=== PATIENT | male | born 1930 | race Caucasian/White ===

== ENCOUNTER 2016-09-03 14:34 | Inpatient (IN) | payer OTHER, MEDICARE ==
[~2016-09-03] VITALS: Ht 167.6 cm; Wt 69.5 kg
[2016-09-03] VITALS (8 sets, daily range): BP systolic 103–161; BP diastolic 51–87; PULSE 72–99; RESP 18–22; TEMP 100.9–102.4; O2SAT 96–99
[2016-09-03] MEDS ORDERED: SODIUM CHLOR 0.9% 1000 ML INJ 400 ML IV ONE (14:58)
[2016-09-03] MEDS ORDERED: SODIUM CHLOR 0.9% 1000 ML INJ 1,000 ML IV ONE ×3 (14:58)
[2016-09-03] MEDS ORDERED: VANCOMYCIN INJ 1,000 MG in SODIUM CHLOR 0.9% 250 ML INJ 250 ML IV ONE (15:00)
[2016-09-03] MEDS ORDERED: CEFEPIME INJ 2,000 MG in SODIUM CHLORIDE 0.9% INJ 100 ML IV ONE (15:00)
[2016-09-03 15:10] LABS: AUTOMATED NEUTROPHIL # 4.2 TH/MM3 (1.8-7.7); BASOPHIL # 0.1 TH/MM3 (0-0.2); BASOPHIL % 1.1 % (0.0-2.0); EOSINOPHIL % 0.8 % (0.0-4.0); HEMATOCRIT 42.3 % (39.0-51.0); HEMO FLAGS DIFF FINAL; LYMPH % 12.9 % (9.0-44.0); LYMPHOCYTE # 0.8 TH/MM3 (1.0-4.8); MEAN CELL VOLUME 89.5 FL (80.0-100.0); MEAN CORPUSCULAR HEMOGLOBIN 29.4 PG (27.0-34.0); MEAN CORPUSCULAR HGB CONC 32.8 % (32.0-36.0); NEUT % 73.2 % (16.0-70.0); PLATELET COUNT 130 TH/MM3 (150-450); RED BLOOD COUNT 4.72 MIL/MM3 (4.50-5.90); RED CELL DISTRIBUTION WIDTH 12.6 % (11.6-17.2); WHITE BLOOD COUNT 5.8 TH/MM3 (4.0-11.0)
[2016-09-03 15:14] LABS: CHLORIDE 103 MEQ/L (98-107); POTASSIUM 4.1 MEQ/L (3.5-5.1); SODIUM (NA) 136 MEQ/L (136-145)
--- NOTE | 2016-09-03 15:15 | RADHPO ---
EXAM DATE/TIME: 09/03/2016 14:55 [facility] COMPARISON: No previous studies available for comparison. INDICATIONS : Stroke alert. Unable to follow commands. Dysarthric. RADIATION DOSE: 47.37 CTDIvol (mGy) This report was called by Dr. Stewart to Dr. Guo at 1513 hr. MEDICAL HISTORY : Non-responsive. SURGICAL HISTORY : Non-responsive. ENCOUNTER: Initial ACUITY: 1 day PAIN SCALE: 0/10 LOCATION: cranial TECHNIQUE: Multiple contiguous axial images were obtained of the head. Using automated exposure control and adj ustment of the mA and/or kV according to patient size, radiation dose was kept as low as reasonably a chievable to obtain optimal diagnostic quality images. FINDINGS: CEREBRUM: The ventricles are normal for age. No evidence of midline shift, mass lesion, hemorrhage or acute in farction. No extra-axial fluid collections are seen. POSTERIOR FOSSA: The cerebellum and brainstem are intact. The 4th ventricle is midline. The cerebellopontine angle i s unremarkable. EXTRACRANIAL: The visualized portion of the orbits is intact. SKULL: The calvaria is intact. No evidence of skull fracture. CONCLUSION: No acute abnormality. Abel Stewart MD on September 03, 2016 at 15:10 Board Certified Radiologist. This report was verified electronically.
[2016-09-03 15:20] LABS: ANION GAP 8 MEQ/L (5-15); APTT (PATIENT) 29.7 SEC (24.3-30.1); BICARBONATE 24.9 MEQ/L (21.0-32.0); BLOOD UREA NITROGEN 24 MG/DL (7-18); PROTHROMBIN TIME - PATIENT 10.8 SEC (9.8-11.6)
[2016-09-03 15:23] LABS: ALT (GPT) 209 U/L (12-78); AST (GOT) 106 U/L (15-37); GLOMERULAR FILTRATION RATE 32 ML/MIN (>89)
[2016-09-03 15:25] LABS: TOTAL BILIRUBIN ADULT 0.5 MG/DL (0.2-1.0)
[2016-09-03 15:26] LABS: ALKALINE PHOSPHATASE 196 U/L (45-117); CREATINE KINASE 192 U/L (39-308)
--- NOTE | 2016-09-03 15:57 | RADHPO ---
EXAM DATE/TIME: 09/03/2016 15:19 [facility] COMPARISON: No previous studies available for comparison. INDICATIONS : Stroke MEDICAL HISTORY : None. SURGICAL HISTORY : None. ENCOUNTER: Initial ACUITY: 1 day PAIN SCORE: Non-responsive. LOCATION: Bilateral chest FINDINGS: Underinflated AP view of the chest demonstrates a normal-sized cardiac silhouette. Lungs are underinf lated. No effusion, consolidation, or pneumothorax is appreciated. Bones and soft tissues demonstrate no acute finding. There is mild atelectasis at the lung bases. There is motion artifact. CONCLUSION: Examination is degraded by mild motion artifact. Lungs are underinflated and there is atelectasis at the lung bases. Deejay Nathan MD on September 03, 2016 at 15:54 Board Certified Radiologist. This report was verified electronically.
[2016-09-03 16:02] LABS: BLOOD, URINE SMALL (NEG); GLUCOSE,URINE NEG (NEG); KETONE, URINE NEG (NEG); NITRITE,URINE NEG (NEG)
[2016-09-03 16:14] LABS: COMMENT (UR) CULT NOT INDICATED; CULTURE IF INDICATED CULT NOT INDICATED; METHOD OF COLLECTION CATH; RBC, URINE 0-3 /hpf (0-3); SQUAMOUS EPITHELIAL CELL URINE 0-5 /hpf (0-5); URINE COLOR YELLOW (YELLW/STRAW); WBC, URINE 0-2 /hpf (0-5)
--- NOTE | 2016-09-03 16:17 | PD ---
HPI Chief Complaint: Stroke Alert Time Seen by Provider: 14:48 Travel History International Travel<30 days: No Contact w/Intl Traveler<30days: No Traveled to known affect area: No History of Present Illness HPI This is an 86-year-old male who presents to the emergency department with fevers , cough, congestion as well as altered mental status. History is very limited as patient and his speak Bulgarian. 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 From what I can understand from the patient's he has had a cough and fevers for 2 days. She was given a bring him to the doctor today and at 1:30 he was normal, in the kitchen, gathering his things, and then an hour later at 2 :30 she found him in the garage acting bizarrely. She says she's appreciated some difficulty with his speech and he seems more confused than normal. Patient is unable to provide any history. PFSH Past Medical History Hx Anticoagulant Therapy: Yes (UNSURE) High Cholesterol: Yes Coronary Artery Disease: Yes Diminished Hearing: No Hypertension: Yes Immunizations Current: Yes Thyroid Disease: Yes Tetanus Vaccination: > 5 Years Influenza Vaccination: No Past Surgical History Coronary Artery Bypass Graft: Yes Social History Alcohol Use: No Tobacco Use: No Substance Use: No Allergies-Medications (Allergen,Severity, Reaction): Coded Allergies: UNOBTAINABLE (Unverified , 09/03/16) Review of Systems ROS Limitations: Poor Historian Physical Exam Narrative GENERAL: Frail elderly male in no acute distress SKIN: Dry HEAD: Atraumatic. Normocephalic. EYES: Pupils equal and round. No injection or drainage. ENT: Moist mucous membranes NECK: Trachea midline. No meningismus. CARDIOVASCULAR: Regular rate and rhythm. No murmur appreciated. RESPIRATORY: Clear to auscultation. Breath sounds equal bilaterally. GASTROINTESTINAL: Abdomen soft, non-tender, nondistended. MUSCULOSKELETAL: No obvious deformities. NEUROLOGICAL: 5 out of 5 strength in the bilateral upper and lower extremities with no obvious ataxia. No obvious cranial nerve deficit. Patient appears to have some dysarthria and expressive aphasia. Data Data Last Documented VS Vital Signs Date Time Temp Pulse Resp B/P Pulse Ox O2 Delivery O2 Flow Rate FiO2 09/03/16 15:51 99 20 152/81 96 Room Air 09/03/16 14:34 102.4 Orders Cath For Specimen (09/03/16 14:58) Neuro Checks Q2HX12,Q4H (09/03/16 14:58) Nursing Bedside Swallow Assess .ONCE (09/03/16 14:58) Activity Bed Rest (09/03/16 14:58) Diet Npo (09/03/16 Dinner) Prothrombin Time / Inr (Pt) (09/03/16 14:58) Act Partial Throm Time (Ptt) (09/03/16 14:58) Complete Blood Count With Diff (09/03/16 14:58) Basic Metabolic Panel (Bmp) (09/03/16 14:58) Fibrinogen (09/03/16 14:58) Creatine Kinase (Cpk) (09/03/16 14:58) Troponin I (09/03/16 14:58) Ua Includes Microscopic (09/03/16 14:58) Drug Screen, Random Urine (09/03/16 14:58) Type And Screen (09/03/16 14:58) Ct Brain W/O Iv Contrast(Rout) (09/03/16 ) Electrocardiogram (09/03/16 ) Consult Neurology (09/03/16 14:58) Sodium Chlor 0.9% 1000 Ml Inj (Ns 1000 M (09/03/16 14:58) Blood Glucose (09/03/16 14:58) Ecg Monitoring (09/03/16 14:58) Iv Access Insert/Monitor (09/03/16 14:58) NPO (09/03/16 14:58) Oximetry (09/03/16 14:58) Oxygen Administration (09/03/16 14:58) Resp Oxygen Víctor C Titrat 1-4 L (09/03/16 14:58) Comprehensive Metabolic Panel (09/03/16 14:58) Lactic Acid Sepsis Protocol (09/03/16 14:58) Urinalysis - C+S If Indicated (09/03/16 14:58) Blood Culture (09/03/16 14:58) Chest, Single Ap (09/03/16 14:58) Sodium Chlor 0.9% 1000 Ml Inj (Ns 1000 M (09/03/16 14:58) Sodium Chlor 0.9% 1000 Ml Inj (Ns 1000 M (09/03/16 14:58) Sodium Chlor 0.9% 1000 Ml Inj (Ns 1000 M (09/03/16 14:58) Vancomycin Inj (Vancomycin Inj) (09/03/16 15:00) Cefepime Inj (Maxipime Inj) (09/03/16 15:00) (Hub Use Only)Inp Phy Cons/Ref (09/03/16 ) Influenzae A/B Antigen (09/03/16 16:20) Us Abdomen Gallbladder (09/03/16 ) Labs Laboratory Tests Test 09/03/16 09/03/16 15:00 15:50 White Blood Count 5.8 TH/MM3 Red Blood Count 4.72 MIL/MM3 Hemoglobin 13.9 GM/DL Hematocrit 42.3 % Mean Corpuscular Volume 89.5 FL Mean Corpuscular Hemoglobin 29.4 PG Mean Corpuscular Hemoglobin 32.8 % Concent Red Cell Distribution Width 12.6 % Platelet Count 130 TH/MM3 Mean Platelet Volume 8.5 FL Neutrophils (%) (Auto) 73.2 % Lymphocytes (%) (Auto) 12.9 % Monocytes (%) (Auto) 12.0 % Eosinophils (%) (Auto) 0.8 % Basophils (%) (Auto) 1.1 % Neutrophils # (Auto) 4.2 TH/MM3 Lymphocytes # (Auto) 0.8 TH/MM3 Monocytes # (Auto) 0.7 TH/MM3 Eosinophils # (Auto) 0.0 TH/MM3 Basophils # (Auto) 0.1 TH/MM3 CBC Comment DIFF FINAL Differential Comment Prothrombin Time 10.8 SEC Prothromb Time International 1.0 RATIO Ratio Activated Partial 29.7 SEC Thromboplast Time Sodium Level 136 MEQ/L Potassium Level 4.1 MEQ/L Chloride Level 103 MEQ/L Carbon Dioxide Level 24.9 MEQ/L Anion Gap 8 MEQ/L Blood Urea Nitrogen 24 MG/DL Creatinine 2.00 MG/DL Estimat Glomerular Filtration 32 ML/MIN Rate Random Glucose 98 MG/DL Lactic Acid Level 2.4 mmol/L Calcium Level 8.6 MG/DL Total Bilirubin 0.5 MG/DL Aspartate Amino Transf 106 U/L (AST/SGOT) Alanine Aminotransferase 209 U/L (ALT/SGPT) Alkaline Phosphatase 196 U/L Total Creatine Kinase 192 U/L Troponin I LESS THAN 0.02 NG/ML Total Protein 7.9 GM/DL Albumin 3.8 GM/DL Urine Collection Type CATH Urine Color YELLOW Urine Turbidity CLEAR Urine pH 5.0 Urine Specific [place] 1.021 Urine Protein 30 mg/dL Urine Glucose (UA) NEG mg/dL Urine Ketones NEG mg/dL Urine Occult Blood SMALL Urine Nitrite NEG Urine Bilirubin NEG Urine Leukocyte Esterase NEG Urine RBC 0-3 /hpf Urine WBC 0-2 /hpf Urine Squamous Epithelial 0-5 /hpf Cells Urine Amorphous Sediment SMALL Microscopic Urinalysis Comment CULT NOT INDICATED Urine Amphetamines Screen NEG MDM Medical Decision Making Medical Screen Exam Complete: Yes Emergency Medical Condition: Yes Interpretation(s) Fever, hypertensive No leukocytosis Monocytic shift Renal insufficiency Lactic acid is 2.4 Transaminitis Troponin is normal Urinalysis is negative for infection CT of the head is negative for intracranial hemorrhage Chest x-ray is negative for infiltrate Differential Diagnosis Pneumonia, bronchitis, viral syndrome, urinary tract infection, cholecystitis, encephalitis, meningitis, ischemic stroke, hemorrhagic stroke Narrative Course This is an 86-year-old male who presents to the emergency department with altered mental status in the setting of a cough and fever at home. Patient was placed on a monitor and an IV was established. He was found to be febrile. History was very limited due to language barrier and hearing impairment. He did appear to be dysarthric and have some aphasia. It's unclear to me whether this is completely new and it's difficult to ascertain the patient's baseline as his is a poor historian as well. I did call a stroke alert because his appeared to appreciated discrete change in his mental status 2 hours prior to arrival. I don't appreciate any focal weakness or focal neurologic deficit on exam except from some possible speech difficulty. His reports he might be on a blood thinner but she's not sure which one. Given the patient's age, uncertain medications, uncertain history, and unclear neurologic deficit I spoke to Dr. Schwartz and we agreed that the risks of TPA outweigh the benefits in this patient. I discussed this with the patient's who express some understanding. Patient is febrile and I suspect he is delirious in the setting of sepsis. He has been reporting a cough so he may have a viral etiology of his symptoms. Chest x-ray was negative and urinalysis was negative. He has no meningismus and is awake and alert so I have a low suspicion for encephalitis or meningitis. Patient was given broad-spectrum antibiotics as well as IV hydration. Cultures were obtained. Patient will be admitted for further management. He did have a mild transaminitis so right upper quadrant ultrasound was obtained, although I doubt cholecystitis as he is not tender on exam. Critical Care Narrative Aggregate critical care time was 35 minutes. Time to perform other separately billable procedures was not included in the critical care time. My time did not include minutes spent treating any other patients simultaneously or on activities that did not directly contribute to the patient's treatment. The services I provided to this patient were to treat and/or prevent clinically significant deterioration that could result in: Disability, I provided critical care services requiring my management, as noted below: Chart data review, documentation time, medication orders and management, vital sign assessments/reviewing monitor data, ordering and reviewing lab tests, ordering and interpreting/reviewing x-rays and diagnostic studies, care of the patient and discussion of the patient with the admitting physicians. Physician Communication Physician Communication Discussed with Dr. Reddy Diagnosis Primary Impression: Sepsis Qualified Code: A41.9 - Sepsis, due to unspecified organism Additional Impression: Altered mental status Qualified Code: R41.0 - Delirium Admitting Information Admitting Physician Requests: Admit Leah Guo MD September 03, 2016 16:17
[2016-09-03 16:20] LABS: AMPHETAMINE, URINE NEG (NEG)
[2016-09-03 16:21] LABS: BARBITURATES, URINE NEG (NEG)
[2016-09-03] MEDS: SODIUM CHLOR 0.9% 1000 ML INJ 1,000 ML IV SCH ×2 (16:25→23:58)
[2016-09-03 16:26] LABS: COCAINE, URINE NEG (NEG)
[2016-09-03] MEDS ORDERED: SODIUM CHLORIDE 0.9% FLUSH 10 ML FLUSH IV FLUSH PRN (16:30)
[2016-09-03] MEDS ORDERED: ONDANSETRON HCL 4 MG/2 ML VIAL IVP PRN (16:30)
[2016-09-03] MEDS ORDERED: NALOXONE HCL 0.4 MG/ML AMP IV PRN (16:30)
[2016-09-03] MEDS ORDERED: METO100T PO (17:03)
[2016-09-03] MEDS ORDERED: AMLO5TAB2 PO (17:03)
[2016-09-03] MEDS ORDERED: LEVO150T7 PO (17:03)
[2016-09-03] MEDS ORDERED: ENAL20TA PO (17:03)
[2016-09-03 17:07] LABS: LACTIC ACID GHOST NOT REPORTABLE
--- NOTE | 2016-09-03 17:30 | RADHPO ---
EXAM DATE/TIME: 09/03/2016 17:02 [facility] COMPARISON: No previous studies available for comparison. INDICATIONS : Nausea/vomiting. MEDICAL HISTORY : Hypercholesterolemia. Hypertension. Thyroid disease. Coronary artery disease. SURGICAL HISTORY : CABG. ENCOUNTER: Initial ACUITY: 2 days PAIN SCORE: 0/10 LOCATION: Right upper quadrant MEASUREMENTS: LIVER: 14.6 cm length COMMON DUCT: 5 mm RIGHT KIDNEY: 9.3 x 5.3 x 4.6 cm FINDINGS: LIVER: Normal echotexture without focal lesion or ductal dilatation. There is a small amount of free fluid in the abdomen. COMMON DUCT: No intraluminal mass or stone visualized. GALLBLADDER: The gallbladder appears normal in size and wall thickness with no pericholecyst ic fluid. There are gallstones as well as apparent echogenic sludge. PANCREAS: The visualized portions are within normal limits. RIGHT KIDNEY: No evidence of hydronephrosis, stone, or mass. Echogenicity is equal to that of the liver. CONCLUSION: 1. Cholelithiasis and sludge. There is no definite wall thickening or pericholecystic fluid. 2. The echogenicity of the right kidney is equal to that of the liver which can be seen in medical re nal disease. There is a small amount of free fluid. 3. Small amount of free fluid. Abel Stewart MD on September 03, 2016 at 17:25 Board Certified Radiologist. This report was verified electronically.
[2016-09-03] MEDS ORDERED: Vancomycin Consult Pharmacy 1 EA OTHER SCH (18:00)
[2016-09-03] MEDS: LACTOBACILLUS ACIDOPHILUS TAB PO SCH (18:00)
[2016-09-03] MEDS: ACETAMINOPHEN 650 MG SUPP RECTAL PRN (18:57)
--- NOTE | 2016-09-03 19:04 | HHI.HP ---
[facility] Service [facility] Primary Care Physician Ernie Mas MD Admission Diagnosis sepsis, altered mental status Diagnoses: Travel History International Travel<30 Days: No Contact w/Intl Traveler <30 Da: No Traveled to Known Affected Are: No Sepsis Criteria SIRS Criteria (2 or more): Temp > 100.9 or < 96.8, Heart rate over 90, RR > 20 or PaCO2 < 32 Sepsis Criteria (SIRS+source): Infect source susp/known Severe Sepsis (+one): Lactate >2 Criteria Outcome: Meets severe sepsis criteria History of Present Illness Mr. Okeefe is an 86-year-old male. He is brought in by his family secondary to confusion. She's been sick for about 2 days with upper respiratory tract type symptoms. His son reports that she mowed the yard for 3 hours yesterday. Today he is coming in with fevers, acute kidney injury, lactic acidosis, decreased speech (resolved by the time I see him), elevated LFTs. She meets criteria for severe sepsis. Symptoms would correlate with a pneumonia but no pneumonia seen on imaging. She has been started on cefepime and vancomycin for broad coverage. Declined speech was suspicious for a TIA versus CVA. CT showed no evidence of this. MRI is pending. His current septic state could also give neurological findings as were seen. He still having symptoms of fever and chills when seen. No other complaints. Blood pressures have remained stable. No chest pain. Review of Systems Constitutional: COMPLAINS OF: Fever, Chills Endocrine: COMPLAINS OF: Heat/cold intolerance, DENIES: Polydipsia Eyes: DENIES: Blurred vision, Diplopia Ears, nose, mouth, throat: COMPLAINS OF: Running Nose, DENIES: Hearing loss, Vertigo Respiratory: COMPLAINS OF: Cough, Shortness of breath, DENIES: Wheezing Cardiovascular: COMPLAINS OF: Palpitations, DENIES: Chest pain Gastrointestinal: DENIES: Abdominal pain, Black stools, Bloody stools Musculoskeletal: DENIES: Joint pain, Muscle aches Integumentary: DENIES: Abnormal pigmentation Hematologic/lymphatic: DENIES: Bruising Immunologic/allergic: DENIES: Eczema Neurologic: DENIES: Abnormal gait Psychiatric: COMPLAINS OF: Confusion, DENIES: Anxiety Past Family Social History Past Medical History Coronary artery disease Past Surgical History CABG 3 Reported Medications Reported Meds & Active Scripts Active Reported Levothyroxine (Levothyroxine Sodium) 150 Mcg Tab 150 Mcg PO DAILY BUT MON Metoprolol Tartrate 100 Mg Tab 100 Mg PO BID Amlodipine (Amlodipine Besylate) 5 Mg Tab 5 Mg PO DAILY Enalapril (Enalapril Maleate) 20 Mg Tab 20 Mg PO BID Allergies: Coded Allergies: UNOBTAINABLE (Unverified , 09/03/16) Active Ordered Medications Administered Medications Medications (Trade) Dose Ordered Sig/Suman Route PRN Reason Start Time Stop Time Status Last Admin Dose Admin Sodium Chloride (NS 1000 ml Inj) 1,000 ml @ 100 mls/hr Q10H IV 09/03/16 16:25 09/03/16 16:25 Family History None Social History Patient is from [place] and speaks predominantly Pakistani no smoking but he has a past history of smoking Occasional alcohol No drug abuse Physical Exam Vital Signs Vital Signs Date Time Temp Pulse Resp B/P Pulse Ox O2 Delivery O2 Flow Rate FiO2 09/03/16 18:19 99 21 09/03/16 18:00 92 20 111/87 99 Room Air 09/03/16 16:59 101.4 94 22 137/59 97 Room Air 09/03/16 16:57 101.4 94 22 137/59 97 Room Air 09/03/16 15:51 99 20 152/81 96 Room Air 09/03/16 15:51 96 99 Room Air 09/03/16 14:45 99 Room Air 09/03/16 14:45 99 Room Air 09/03/16 14:34 102.4 72 20 161/76 99 Physical Exam GENERAL: NAD, A&Ox3, fine tremors globally SKIN: Warm and dry. HEAD: Normocephalic. EYES: No scleral icterus. No injection or drainage. NECK: Supple, trachea midline. No JVD or lymphadenopathy. CARDIOVASCULAR: Tachycardia. Regular rate and rhythm without murmurs, gallops, or rubs. RESPIRATORY: Breath sounds equal bilaterally. No accessory muscle use. GASTROINTESTINAL: Abdomen soft, non-tender, nondistended. MUSCULOSKELETAL: No cyanosis, or edema. Laboratory Laboratory Tests Test 09/03/16 09/03/16 09/03/16 15:00 15:50 17:46 White Blood Count 5.8 Red Blood Count 4.72 Hemoglobin 13.9 Hematocrit 42.3 Mean Corpuscular Volume 89.5 Mean Corpuscular Hemoglobin 29.4 Mean Corpuscular Hemoglobin 32.8 Concent Red Cell Distribution Width 12.6 Platelet Count 130 Mean Platelet Volume 8.5 Neutrophils (%) (Auto) 73.2 Lymphocytes (%) (Auto) 12.9 Monocytes (%) (Auto) 12.0 Eosinophils (%) (Auto) 0.8 Basophils (%) (Auto) 1.1 Neutrophils # (Auto) 4.2 Lymphocytes # (Auto) 0.8 Monocytes # (Auto) 0.7 Eosinophils # (Auto) 0.0 Basophils # (Auto) 0.1 CBC Comment DIFF FINAL Differential Comment Prothrombin Time 10.8 Prothromb Time International 1.0 Ratio Activated Partial 29.7 Thromboplast Time Fibrinogen 402 Sodium Level 136 Potassium Level 4.1 Chloride Level 103 Carbon Dioxide Level 24.9 Anion Gap 8 Blood Urea Nitrogen 24 Creatinine 2.00 Estimat Glomerular Filtration 32 Rate Random Glucose 98 Lactic Acid Level 2.4 2.1 Calcium Level 8.6 Total Bilirubin 0.5 Aspartate Amino Transf 106 (AST/SGOT) Alanine Aminotransferase 209 (ALT/SGPT) Alkaline Phosphatase 196 Total Creatine Kinase 192 Troponin I LESS THAN 0.02 Total Protein 7.9 Albumin 3.8 Blood Type O POSITIVE Antibody Screen NEGATIVE Urine Collection Type CATH Urine Color YELLOW Urine Turbidity CLEAR Urine pH 5.0 Urine Specific [place] 1.021 Urine Protein 30 Urine Glucose (UA) NEG Urine Ketones NEG Urine Occult Blood SMALL Urine Nitrite NEG Urine Bilirubin NEG Urine Leukocyte Esterase NEG Urine RBC 0-3 Urine WBC 0-2 Urine Squamous Epithelial 0-5 Cells Urine Amorphous Sediment SMALL Microscopic Urinalysis Comment CULT NOT INDICATED Urine Opiates Screen NEG Urine Barbiturates Screen NEG Urine Amphetamines Screen NEG Urine Benzodiazepines Screen NEG Urine Cocaine Screen NEG Urine Cannabinoids Screen NEG Date/Time Procedure Status Source Growth 09/03/16 16:40 Influenza Types A,B Antigen (JULIAN) - Final Complete Nasal Washing Positive For Flu B Antigen 09/03/16 14:50 Aerobic Blood Culture Received Blood Peripheral Pending 09/03/16 14:50 Anaerobic Blood Culture Received Blood Peripheral Pending Result Diagram: 09/03/16 1500 09/03/16 1500 Imaging Last Impressions Chest X-Ray 09/03/16 1458 Signed Impressions: Service Date/Time: Saturday, September 03, 2016 15:19 - CONCLUSION: Examination is degraded by mild motion artifact. Lungs are underinflated and there is atelectasis at the lung bases. Deejay Nathan MD Head CT 09/03/16 0000 Signed Impressions: Service Date/Time: Saturday, September 03, 2016 14:55 - CONCLUSION: No acute abnormality. Abel Stewart MD Gall Bladder Ultrasound 09/03/16 0000 Signed Impressions: Service Date/Time: Saturday, September 03, 2016 17:02 - CONCLUSION: 1. Cholelithiasis and sludge. There is no definite wall thickening or pericholecystic fluid. 2. The echogenicity of the right kidney is equal to that of the liver which can be seen in medical renal disease. There is a small amount of free fluid. 3. Small amount of free fluid. Abel Stewart MD Septic Shock Reassessment Heart: Regular rate and rhythm Lungs: Clear Skin: Warm Peripheral Pulses: Bounding Right Radial Bounding Left Radial Capillary Refill: Brisk Assessment and Plan Problem List: (1) Sepsis ICD Code: A41.9 Status: Acute (2) Altered mental status ICD Code: R41.82 Status: Acute (3) Lactic acidosis ICD Code: E87.2 Status: Acute (4) Severe sepsis ICD Code: A41.9 Status: Acute (5) JESSICA (acute kidney injury) ICD Code: N17.9 Status: Acute (6) LFT elevation ICD Code: R94.5 Status: Acute Assessment and Plan Assessment and plan 86-year-old male admitted with fever, acute kidney injury, elevated LFTs, lactic acidosis, severe sepsis Severe sepsis Lactic acidosis tachycardia Fever Aggressive IV hydration Cefepime Vancomycin Follow CBC Monitor lactic acid levels Follow vital signs closely Follow fevers next Acute kidney injury IV hydration Follow renal function Consider nephrology consult if renal function worsens Metabolic encephalopathy Possible CVA Dysarthria MRI of brain CT of brain is within normal limits If MRI of brain is normal etiology is likely secondary to infection If MRI brain shows CVA we'll consult neurology Daily aspirin Elevated LFTs Follow for now next DVT prophylaxis Given acute kidney injury will use SCDs for now Consider Lovenox if renal function improves Physician Certification 2 Midnight Certification Type: Admission for Inpatient Services Order for Inpatient Services The services are ordered in accordance with Medicare regulations or non- Medicare payer requirements, as applicable. In the case of services not specified as inpatient-only, they are appropriately provided as inpatient services in accordance with the 2-midnight benchmark. Estimated LOS (days): 2 days is the estimated time the patient will need to remain in the hospital, assuming treatment plan goals are met and no additional complications. Post-Hospital Plan: Home Problem Qualifiers (1) Sepsis: Qualified Code: A41.9 - Sepsis, due to unspecified organism (2) Altered mental status: Qualified Code: R41.0 - Delirium Devin Reddy MD September 03, 2016 7:04 pm
[2016-09-03] MEDS: SODIUM CHLORIDE 0.9% FLUSH 10 ML FLUSH IV FLUSH SCH (22:04)
--- NOTE | 2016-09-03 22:29 | RADHPO ---
EXAM DATE/TIME: 09/03/2016 21:31 [facility] COMPARISON: No previous studies available for comparison. INDICATIONS : CVA. MEDICAL HISTORY : Hypertension. Cardiovascular disease SURGICAL HISTORY : CABG ENCOUNTER: Initial ACUITY: 1 day PAIN SCORE: Nonresponsive. LOCATION: Bilateral cranial TECHNIQUE: Multiplanar, multisequence MRI of the brain was performed without contrast. FINDINGS: CEREBRUM: The ventricles are normal for age. No evidence of midline shift, mass lesion, hemorrhage or acute in farction. No extraaxial fluid collections are seen. The pituitary gland and suprasellar cistern are normal in configuration. WHITE MATTER: Mild signal abnormalities are seen in the white matter. POSTERIOR FOSSA: The cerebellum and brainstem are intact. The 4th ventricle is midline. The cerebellopontine angle is unremarkable. The cerebellar tonsils are normal in position. DIFFUSION IMAGING: No focal areas of restricted diffusion are seen. No evidence of acute infarction. EXTRACRANIAL: The visualized portions of the orbits and paranasal sinuses are unremarkable. CONCLUSION: 1. No acute findings. Mild chronic white matter ischemic changes. Memo Caba MD on September 03, 2016 at 22:25 Board Certified Radiologist. This report was verified electronically.
[2016-09-04] VITALS (8 sets, daily range): BP systolic 103–157; BP diastolic 51–88; PULSE 68–86; RESP 16–19; TEMP 96.3–100.8; O2SAT 92–98
[2016-09-04] MEDS ORDERED: VANCOMYCIN INJ 1,000 MG in SODIUM CHLOR 0.9% 250 ML INJ 250 ML IV SCH (03:00)
[2016-09-04 05:48] LABS: AUTOMATED NEUTROPHIL # 2.8 TH/MM3 (1.8-7.7); BASOPHIL % 0.8 % (0.0-2.0); EOSINOPHIL % 0.9 % (0.0-4.0); HEMATOCRIT 40.7 % (39.0-51.0); HEMO FLAGS DIFF FINAL; LYMPH % 22.2 % (9.0-44.0); MEAN CELL VOLUME 90.9 FL (80.0-100.0); MEAN CORPUSCULAR HEMOGLOBIN 29.8 PG (27.0-34.0); MEAN CORPUSCULAR HGB CONC 32.8 % (32.0-36.0); MONO % 13.8 % (0.0-8.0); NEUT % 62.3 % (16.0-70.0); PLATELET COUNT 114 TH/MM3 (150-450); RED BLOOD COUNT 4.47 MIL/MM3 (4.50-5.90); RED CELL DISTRIBUTION WIDTH 13.5 % (11.6-17.2); WHITE BLOOD COUNT 4.4 TH/MM3 (4.0-11.0)
[2016-09-04 05:55] LABS: CHLORIDE 110 MEQ/L (98-107); SODIUM (NA) 141 MEQ/L (136-145)
[2016-09-04 06:11] LABS: ALKALINE PHOSPHATASE 151 U/L (45-117); ALT (GPT) 146 U/L (12-78); ANION GAP 8 MEQ/L (5-15); AST (GOT) 79 U/L (15-37); BICARBONATE 23.4 MEQ/L (21.0-32.0); BLOOD UREA NITROGEN 17 MG/DL (7-18); GLOMERULAR FILTRATION RATE 41 ML/MIN (>89); TOTAL BILIRUBIN ADULT 0.7 MG/DL (0.2-1.0)
[2016-09-04] MEDS: SODIUM CHLOR 0.9% 1000 ML INJ 1,000 ML IV SCH ×3 (06:38→20:45)
[2016-09-04] MEDS: ASPIRIN 81 MG CHEW TAB CHEW SCH (08:08)
[2016-09-04] MEDS: LACTOBACILLUS ACIDOPHILUS TAB PO SCH ×3 (08:08→17:38)
[2016-09-04] MEDS: ACETAMINOPHEN 650 MG SUPP RECTAL PRN (08:08)
--- NOTE | 2016-09-04 08:13 | MB ---
cc: SAMAN SIMS M.D. DATE OF CONSULTATION: 09/04/2016 REASON FOR CONSULTATION The patient is an 86-year-old Haitian man seen in neurological consultation because of altered mental status. HISTORY OF PRESENT ILLNESS Yesterday he came in and a Stroke Alert was called. I spoke to the ED physician, Dr. Boyce, on a couple of occasions and we felt the patient was not a candidate for TPA and the diagnosis was questionable. As we obtained additional history, this patient apparently had been having fevers and had a cough and yesterday was acutely more confused. The exam is limited because of the language barrier. The patient speaks very little Dutch. Apparently he came in with his and when I see him this morning he is by himself. The family has subsequently provided additional information to the other treating physicians. He is apparently an active man that mowed the yard for several hours a couple of days ago. 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 SOCIAL HISTORY Rare alcohol use. NEUROLOGIC EXAMINATION The patient is alert, pleasant, cooperative. He seems to be oriented to himself, but is unable to speak much Dutch. He follows simple commands. He moves all four extremities equally. He is edentulous, therefore I cannot say much about any facial weakness as there is minor asymmetry. He gazes to the right and left and he was able to count fingers bilaterally. Reflexes were trace at the elbows, absent at the knees and ankles, and plantar responses were flexor. I did not ambulate him. I spoke to the RN taking care of him and they report stable overall status. IMAGING The patient had an MRI brain and CT brain last evening and the study showed chronic white matter changes, no acute process. LABORATORY CBC with slightly low platelet count, otherwise unremarkable. Sodium and potassium normal. BUN 24, creatinine 2.0. AST 106, ALT 209. Glucose 98. Urine toxicology negative. Urinalysis negative. ASSESSMENT AND PLAN Probable metabolic encephalopathy. As discussed above, he came in and a Stroke Alert was called but he did not seem to have any strong indicators of an acute stroke syndrome. He was found to have a fever and he has been treated for possible sepsis. I am going to order a carotid ultrasound on him and otherwise continue medical care. If the ultrasound study is remarkable than we will reassess, otherwise continue a baby aspirin daily and we will see him on a p.r.n. basis. Thank you for asking us to assist in his care. MD PRECIOUS Vega/BUSTER /7:57 AM /8:06 AM
[2016-09-04] MEDS: SODIUM CHLORIDE 0.9% FLUSH 10 ML FLUSH IV FLUSH SCH ×2 (09:00→20:45)
--- NOTE | 2016-09-04 09:15 | RADHPO ---
EXAM DATE/TIME: 09/04/2016 08:33 [facility] COMPARISON: No previous studies available for comparison. INDICATIONS : Transichemic attack. MEDICAL HISTORY : Hypertension. Cardiovascular disease SURGICAL HISTORY : CABG. ENCOUNTER: Initial ACUITY: 1 day PAIN SCORE: 0/10 LOCATION: Bilateral neck PEAK SYSTOLIC VELOCITIES (cm/sec): ICA/CCA RATIO: Right: 2.1 Left: 2.0 ICA: Right: 149 Left: 127 CCA: Right: 71 Left: 63 ECA: Right: 162 Left: 179 VERTEBRAL: Right: NOT SEEN antegrade Left: 67 antegrade Elevated flow velocities and ICA/CCA ratios have been found to correlate with increased degrees of vessel stenosis, calculated as percentage of diameter relative to a normal segment of distal ICA/CCA FINDINGS: RIGHT CAROTID: Moderate eccentric plaquing. LEFT CAROTID: Moderate eccentric plaquing. VERTEBRAL ARTERIES: Right vertebral not seen MISCELLANEOUS: None. CONCLUSION: Mild flow velocity acceleration across both carotid bifurcations likely indicative of at least modera te stenotic narrowing. Further evaluation with CTA examination of the arch and carotids recommended Deejay Apodaca MD on September 04, 2016 at 9:12 Board Certified Radiologist. This report was verified electronically.
--- NOTE | 2016-09-04 10:47 | HHI.PR ---
Subjective Remarks Translation provided by son at bedside. Patient reports feeling better. Son reports the patient is almost back to baseline, however has not had a chance to walk around today. He denies any nausea, vomiting, chest pain, shortness of breath. Objective Vital Signs Date Time Temp Pulse Resp B/P Pulse Ox O2 Delivery O2 Flow Rate FiO2 09/04/16 08:00 100.8 79 19 103/66 92 09/04/16 04:00 97.8 82 18 107/51 98 09/04/16 03:35 94 21 09/04/16 00:00 96.9 83 16 107/55 94 09/03/16 20:00 100.9 92 18 103/51 98 09/03/16 18:19 99 21 09/03/16 18:00 92 20 111/87 99 Room Air 09/03/16 16:59 101.4 94 22 137/59 97 Room Air 09/03/16 16:57 101.4 94 22 137/59 97 Room Air 09/03/16 15:51 99 20 152/81 96 Room Air 09/03/16 15:51 96 99 Room Air 09/03/16 14:45 99 Room Air 09/03/16 14:45 99 Room Air 09/03/16 14:34 102.4 72 20 161/76 99 I/O 09/03/16 09/03/16 09/03/16 09/04/16 09/04/16 09/04/16 07:00 15:00 23:00 07:00 15:00 23:00 Intake Total 2650 ml 1290 ml Output Total 550 ml Balance 2100 ml 1290 ml Intake Oral 180 ml 540 ml IV Total 2470 ml 750 ml Output Urine Total 550 ml # Voids 3 4 # Bowel Movements 0 1 Result Diagram: 09/04/16 0508 09/04/16 0508 Objective Remarks GENERAL:pt lying in bed sleeping. He wakes up for exam. Appears comfortable. Alert and oriented 3 SKIN: Warm and dry. HEAD: Normocephalic. EYES: No scleral icterus. No injection or drainage. NECK: Supple, trachea midline. No JVD. CARDIOVASCULAR: Regular rate and rhythm without murmurs, gallops, or rubs. RESPIRATORY: Breath sounds equal bilaterally. No accessory muscle use. GASTROINTESTINAL: Abdomen soft, non-tender, nondistended. MUSCULOSKELETAL: No cyanosis, or edema. BACK: Nontender without obvious deformity. No CVA tenderness. A/P Assessment and Plan 86-year-old male admitted with fever, acute kidney injury, elevated LFTs, lactic acidosis, severe sepsis //Severe sepsis. Improving //Influenza positive. -Lactic acidosis. 2.4 on admission. Resolved. -tachycardia. Resolved -Still with fevers 100.8. -Improving Status post Aggressive IV hydration -Still with fever 100.8. Continue supportive care. Antibiotics //Acute kidney injury -2.0 on admission from unknown baseline Improving creatinine 1.6 //Metabolic encephalopathy //Possible CVA //Dysarthria MRI of brain no acute findings. Neurology following. Carotid ultrasound with least moderate bilateral stenosis. Commended CT evaluation of the arch and carotids. Appreciate neurology assistance. //Elevated LFTs Follow for now next //DVT prophylaxis. Given acute kidney injury will use SCDs for now Consider Lovenox if renal function improves Discharge Planning Physical therapy evaluation pending - When cleared by neurology. Bethel Lui MD September 04, 2016 10:47
[2016-09-04] MEDS: CEFEPIME INJ 1,000 MG in SODIUM CHLORIDE 0.9% INJ 100 ML IV SCH (13:13)
[2016-09-04] MEDS: OSELTAMIVIR PHOSPHATE 75 MG CAP PO SCH ×2 (13:13→20:44)
--- NOTE | 2016-09-04 15:12 | EKG ---
Date Performed: 09/03/2016 Time Performed: 15:39:08 PTAGE: 86 years EKG: Sinus rhythm Left anterior fascicular block Poor R wave progression - cannot rule out anteroseptal infarct Abnorm al ECG Compared to prior tracing no significant change PREVIOUS TRACING : 09/28/1999 21.21 DOCTOR: Harsh Lau Interpretating Date/Time 09/04/2016 15:11:02
[2016-09-04] MEDS: VANCOMYCIN 1,000 MG/NS 250 ML IV SCH ×2 (17:39)
[2016-09-04] MEDS ORDERED: VANCOMYCIN INJ 1,250 MG in SODIUM CHLOR 0.9% 250 ML INJ 250 ML IV SCH (20:00)
[2016-09-04 20:58] LABS: C. DIFF EPI 027 PRESUMPTIVE NEGATIVE (NEGATIVE); C. DIFF TOXIN PCR NEGATIVE (NEGATIVE)
[2016-09-05] VITALS (7 sets, daily range): BP systolic 122–151; BP diastolic 58–79; PULSE 72–87; RESP 17–20; TEMP 98.6–101; O2SAT 93–96
[2016-09-05] MEDS: ACETAMINOPHEN 325 MG TAB PO PRN ×2 (00:48→21:46)
[2016-09-05] MEDS: SODIUM CHLOR 0.9% 1000 ML INJ 1,000 ML IV SCH ×2 (02:38→08:39)
[2016-09-05 07:43] LABS: AUTOMATED NEUTROPHIL # 1.6 TH/MM3 (1.8-7.7); BASOPHIL % 0.9 % (0.0-2.0); EOSINOPHIL % 0.7 % (0.0-4.0); HEMATOCRIT 37.6 % (39.0-51.0); LYMPH % 31.8 % (9.0-44.0); MEAN CELL VOLUME 90.1 FL (80.0-100.0); MEAN CORPUSCULAR HEMOGLOBIN 29.7 PG (27.0-34.0); MONO % 16.8 % (0.0-8.0); NEUT % 49.8 % (16.0-70.0); PLATELET COUNT 96 TH/MM3 (150-450); RED BLOOD COUNT 4.17 MIL/MM3 (4.50-5.90); RED CELL DISTRIBUTION WIDTH 12.9 % (11.6-17.2); WHITE BLOOD COUNT 3.1 TH/MM3 (4.0-11.0)
[2016-09-05 07:46] LABS: HEMO FLAGS AUTO DIFF
[2016-09-05 07:50] LABS: POTASSIUM 3.6 MEQ/L (3.5-5.1)
[2016-09-05 07:57] LABS: BICARBONATE 22.2 MEQ/L (21.0-32.0); MAGNESIUM 1.7 MG/DL (1.5-2.5)
[2016-09-05 08:20] LABS: SCAN/DIFF AUTO DIFF CONFIRMED
[2016-09-05] MEDS: OSELTAMIVIR PHOSPHATE 75 MG CAP PO SCH ×2 (08:35→21:46)
[2016-09-05] MEDS: LACTOBACILLUS ACIDOPHILUS TAB PO SCH ×3 (08:35→18:39)
[2016-09-05] MEDS: ASPIRIN 81 MG CHEW TAB CHEW SCH (08:35)
[2016-09-05] MEDS: SODIUM CHLORIDE 0.9% FLUSH 10 ML FLUSH IV FLUSH SCH ×2 (08:38→21:46)
--- NOTE | 2016-09-05 13:33 | HHI.PR ---
Subjective Remarks No complaints today. Patient feeling closer to baseline. Fever was present overnight. Objective Vital Signs Date Time Temp Pulse Resp B/P Pulse Ox O2 Delivery O2 Flow Rate FiO2 09/05/16 12:00 98.9 78 18 141/65 96 09/05/16 08:00 98.7 78 17 129/58 96 09/05/16 04:00 98.7 87 18 147/79 96 09/05/16 00:00 101.0 81 18 150/71 93 09/04/16 21:30 96 21 09/04/16 20:00 86 09/04/16 20:00 100.5 83 18 144/88 97 09/04/16 16:37 100.1 73 18 157/70 93 I/O 09/04/16 09/04/16 09/04/16 09/05/16 09/05/16 09/05/16 07:00 15:00 23:00 07:00 15:00 23:00 Intake Total 1290 ml 900 ml 500 ml 680 ml Output Total 600 ml 300 ml Balance 1290 ml 300 ml 500 ml 680 ml -300 ml Intake Oral 540 ml 500 ml 680 ml IV Total 750 ml 900 ml Output Urine Total 600 ml 300 ml # Voids 4 6 4 # Bowel Movements 1 0 Result Diagram: 09/05/16 0520 09/05/16 0520 Imaging Last Impressions Carotid Artery Ultrasound 09/04/16 0000 Signed Impressions: Service Date/Time: Sunday, September 04, 2016 08:33 - CONCLUSION: Mild flow velocity acceleration across both carotid bifurcations likely indicative of at least moderate stenotic narrowing. Further evaluation with CTA examination of the arch and carotids recommended Deejay Apodaca MD Chest X-Ray 09/03/16 1458 Signed Impressions: Service Date/Time: Saturday, September 03, 2016 15:19 - CONCLUSION: Examination is degraded by mild motion artifact. Lungs are underinflated and there is atelectasis at the lung bases. Deejay Nathan MD Head CT 09/03/16 0000 Signed Impressions: Service Date/Time: Saturday, September 03, 2016 14:55 - CONCLUSION: No acute abnormality. Abel Stewart MD Gall Bladder Ultrasound 09/03/16 0000 Signed Impressions: Service Date/Time: Saturday, September 03, 2016 17:02 - CONCLUSION: 1. Cholelithiasis and sludge. There is no definite wall thickening or pericholecystic fluid. 2. The echogenicity of the right kidney is equal to that of the liver which can be seen in medical renal disease. There is a small amount of free fluid. 3. Small amount of free fluid. Abel Stewart MD Brain MRI 09/03/16 0000 Signed Impressions: Service Date/Time: Saturday, September 03, 2016 21:31 - CONCLUSION: 1. No acute findings. Mild chronic white matter ischemic changes. Memo Caba MD Objective Remarks GENERAL: NAD, A&Ox3 SKIN: Warm and dry. HEAD: Normocephalic. EYES: No scleral icterus. No injection or drainage. NECK: Supple, trachea midline. No JVD or lymphadenopathy. CARDIOVASCULAR: Regular rate and rhythm without murmurs, gallops, or rubs. RESPIRATORY: Breath sounds equal bilaterally. No accessory muscle use. GASTROINTESTINAL: Abdomen soft, non-tender, nondistended. MUSCULOSKELETAL: No cyanosis, or edema. Medications and IVs Administered Medications Medications (Trade) Dose Ordered Sig/Suman Route PRN Reason Start Time Stop Time Status Last Admin Dose Admin Sodium Chloride 2 ml 2 ml BID IV FLUSH 09/03/16 21:00 09/04/16 09:00 Cefepime HCl/ Sodium Chloride (Maxipime Inj/NS Inj) 100 ml @ 200 mls/hr Q24H IV 09/04/16 15:00 09/04/16 13:13 Lactobacillus Acidophilus (Lactinex) 1 tab TID PO 09/03/16 18:00 09/05/16 08:35 Aspirin 81 mg 81 mg DAILY CHEW 09/04/16 09:00 09/05/16 08:35 Vancomycin HCl/ Sodium Chloride (Vancomycin Inj/ NS 250 ml Inj) 250 ml @ 250 mls/hr DAILY@16 IV 09/04/16 16:00 09/04/16 17:39 Acetaminophen (Tylenol) 650 mg Q4H PRN PO FEVER 09/04/16 11:30 09/05/16 00:48 Oseltamivir Phosphate (Tamiflu) 75 mg BID PO 09/04/16 11:30 09/05/16 08:35 A/P Problem List: (1) LFT elevation ICD Code: R94.5 (2) JESSICA (acute kidney injury) ICD Code: N17.9 (3) Severe sepsis ICD Code: A41.9 (4) Altered mental status ICD Code: R41.82 (5) Sepsis ICD Code: A41.9 (6) Lactic acidosis ICD Code: E87.2 Assessment and Plan Assessment and Plan 86-year-old male admitted with fever, acute kidney injury, elevated LFTs, lactic acidosis, severe sepsis. Sepsis, acute kidney injury, and lactic acidosis have resolved. Fever remains. He should be fever free prior to discharge. Sepsis Resolved Monitor for resolution of fever Influenza Follow clinically Acute kidney injury Resolved Stop IV hydration Metabolic encephalopathy Resolved Patient at baseline Elevated LFTs Likely reactive CMP in a.m. DVT prophylaxis Lovenox Problem Qualifiers (1) Altered mental status: Qualified Code: R41.0 - Delirium (2) Sepsis: Qualified Code: A41.9 - Sepsis, due to unspecified organism Devin Reddy MD September 05, 2016 13:33
[2016-09-05] MEDS: CEFEPIME INJ 1,000 MG in SODIUM CHLORIDE 0.9% INJ 100 ML IV SCH (14:44)
[2016-09-05] MEDS: VANCOMYCIN 1,000 MG/NS 250 ML IV SCH ×2 (14:44)
[2016-09-06] VITALS (7 sets, daily range): BP systolic 130–147; BP diastolic 65–74; PULSE 67–80; RESP 18–20; TEMP 96.5–99.7; O2SAT 93–96
[2016-09-06] MEDS: ASPIRIN 81 MG CHEW TAB CHEW SCH (08:20)
[2016-09-06] MEDS: LACTOBACILLUS ACIDOPHILUS TAB PO SCH ×3 (08:20→19:49)
[2016-09-06] MEDS: OSELTAMIVIR PHOSPHATE 75 MG CAP PO SCH ×2 (08:20→21:05)
[2016-09-06] MEDS: SODIUM CHLORIDE 0.9% FLUSH 10 ML FLUSH IV FLUSH SCH ×2 (08:21→21:06)
--- NOTE | 2016-09-06 08:26 | HHI.PR ---
Subjective Remarks in no acute distress. no sob or pain. had low grade fever last night. d/w the RN and the at the bedside. Objective Vitals Vital Signs Date Time Temp Pulse Resp B/P Pulse Ox O2 Delivery O2 Flow Rate FiO2 09/06/16 04:00 96.5 09/06/16 00:00 99.7 76 20 144/69 95 09/05/16 20:00 100.3 82 20 151/79 94 09/05/16 19:25 95 21 09/05/16 16:00 98.6 72 19 122/72 95 09/05/16 12:00 98.9 78 18 141/65 96 I/O 09/05/16 09/05/16 09/05/16 09/06/16 09/06/16 09/06/16 07:00 15:00 23:00 07:00 15:00 23:00 Intake Total 680 ml 310 ml 60 ml 60 ml Output Total 300 ml Balance 680 ml 10 ml 60 ml 60 ml Intake Oral 680 ml 310 ml 60 ml 60 ml Output Urine Total 300 ml # Voids 4 1 1 # Bowel Movements 0 0 0 Result Diagram: 09/05/16 0520 09/05/16 0520 Imaging Last Impressions Carotid Artery Ultrasound 09/04/16 0000 Signed Impressions: Service Date/Time: Sunday, September 04, 2016 08:33 - CONCLUSION: Mild flow velocity acceleration across both carotid bifurcations likely indicative of at least moderate stenotic narrowing. Further evaluation with CTA examination of the arch and carotids recommended Deejay Apodaca MD Chest X-Ray 09/03/16 1458 Signed Impressions: Service Date/Time: Saturday, September 03, 2016 15:19 - CONCLUSION: Examination is degraded by mild motion artifact. Lungs are underinflated and there is atelectasis at the lung bases. Deejay Nathan MD Head CT 09/03/16 0000 Signed Impressions: Service Date/Time: Saturday, September 03, 2016 14:55 - CONCLUSION: No acute abnormality. Abel Stewart MD Gall Bladder Ultrasound 09/03/16 0000 Signed Impressions: Service Date/Time: Saturday, September 03, 2016 17:02 - CONCLUSION: 1. Cholelithiasis and sludge. There is no definite wall thickening or pericholecystic fluid. 2. The echogenicity of the right kidney is equal to that of the liver which can be seen in medical renal disease. There is a small amount of free fluid. 3. Small amount of free fluid. Abel Stewart MD Brain MRI 09/03/16 0000 Signed Impressions: Service Date/Time: Saturday, September 03, 2016 21:31 - CONCLUSION: 1. No acute findings. Mild chronic white matter ischemic changes. Memo Caba MD Objective Remarks GENERAL: elderly male, in no apparent distress. CARDIOVASCULAR: Regular rate and regular rhythm without murmurs, gallops, or rubs. RESPIRATORY: Clear to auscultation. Breath sounds equal bilaterally. No wheezes , rales, or rhonchi. GASTROINTESTINAL: Abdomen soft, non-tender, nondistended. Normal, active bowel sounds MUSCULOSKELETAL: Extremities without clubbing, cyanosis, or edema. NEURO: Alert & Oriented x4 to person, place, time, situation. Moves all ext x4 Procedures none Medications and IVs Current Medications Sodium Chloride 1,000 ml @ 70 mls/hr [id number] ONCE IV Last administered on 09/03 15:34; Start 09/03/16 at 14:58; Stop 09/03/16 at 16:33; Status DC Sodium Chloride 1,000 ml @ 1,000 mls/hr Q1H ONCE IV Last administered on 15:34; Start 09/03/16 at 14:58; Stop 09/03/16 at 15:57; Status DC Sodium Chloride 1,000 ml @ 1,000 mls/hr Q1H ONCE IV Last administered on 16:02; Start 09/03/16 at 14:58; Stop 09/03/16 at 15:57; Status DC Sodium Chloride 400 ml @ 1,000 mls/hr Q24M ONCE IV Last administered on 16:41; Start 09/03/16 at 14:58; Stop 09/03/16 at 15:21; Status DC Vancomycin HCl 1000 mg/Sodium Chloride 250 ml @ 250 mls/hr ONCE ONCE IV Last administered on 09/03/16 16:03; Start 09/03/16 at 15:00; Stop 09/03/16 at 15:59 ; Status DC Cefepime HCl 2000 mg/Sodium Chloride 100 ml @ 200 mls/hr ONCE ONCE IV Last administered on 09/03/16 15:35; Start 09/03/16 at 15:00; Stop 09/03/16 at 15:29 ; Status DC Sodium Chloride (NS 1000 ml Inj) 1,000 ml @ 150 mls/hr Q6H40M IV Last administered on 09/05/16 08:39; Start 09/03/16 at 16:25; Stop 09/05/16 at 12:52 ; Status DC Sodium Chloride (NS Flush) 2 ml UNSCH PRN IV FLUSH FLUSH AFTER USING IV ACCESS ; Start 09/03/16 at 16:30 Sodium Chloride (NS Flush) 2 ml BID IV FLUSH Last administered on 09/05/16 21: 46; Start 09/03/16 at 21:00 Ondansetron HCl (Zofran Inj) 4 mg Q6H PRN IVP NAUSEA OR VOMITING; Start at 16:30 Naloxone HCl 0.4 mg 0.4 mg UNSCH PRN IV SEE LABEL COMMENTS; Start 09/03/16 at 16:30 Vancomycin HCl 1000 mg/Sodium Chloride 250 ml @ 250 mls/hr Q12H IV ; Start at 03:00; Stop 09/04/16 at 03:00; Status DC Pharmacy Profile Note 0 ml @ 0 mls/hr UNSCH OTHER ; Start 09/03/16 at 18:00 Cefepime HCl/ Sodium Chloride (Maxipime Inj/NS Inj) 100 ml @ 200 mls/hr Q24H IV Last administered on 09/05/16 14:44; Start 09/04/16 at 15:00 Lactobacillus Acidophilus (Lactinex) 1 tab TID PO Last administered on 18:39; Start 09/03/16 at 18:00 Aspirin (Aspirin Chew) 81 mg DAILY CHEW Last administered on 09/05/16 08:35; Start 09/04/16 at 09:00 Acetaminophen 650 mg 650 mg Q6H PRN RECTAL FEver Last administered on 08:08; Start 09/03/16 at 18:00; Stop 09/04/16 at 11:18; Status DC Vancomycin HCl/ Sodium Chloride (Vancomycin Inj/ NS 250 ml Inj) 262.5 ml @ 250 mls/hr Q36H IV ; Start 09/04/16 at 20:00; Stop 09/04/16 at 20:00; Status DC Miscellaneous Information SPECIFIC LAB TO BE DRAWN:VANCOMY... ONCE ONCE .XX ; Start 09/09/16 at 07:45; Stop 09/09/16 at 07:45; Status DC Vancomycin HCl/ Sodium Chloride (Vancomycin Inj/ NS 250 ml Inj) 250 ml @ 250 mls/hr DAILY@16 IV Last administered on 09/05/16 14:44; Start 09/04/16 at 16: 00 Miscellaneous Information SPECIFIC LAB TO BE DRAWN:VANCOMY... ONCE ONCE .XX ; Start 09/06/16 at 15:45; Stop 09/06/16 at 15:46 Acetaminophen (Tylenol) 650 mg Q4H PRN PO FEVER Last administered on 09/05/16 21:46; Start 09/04/16 at 11:30 Oseltamivir Phosphate (Tamiflu) 75 mg BID PO Last administered on 09/05/16 21: 46; Start 09/04/16 at 11:30 A/P Assessment and Plan A/P Sepsis Resolved still with low grade fever Monitor for resolution of fever Influenza Follow clinically Acute kidney injury Resolved Metabolic encephalopathy Resolved Patient at baseline Elevated LFTs Likely reactive CMP in a.m. DVT prophylaxis SCD's Discharge Planning possible dc home in am if remains fever free. Sameera Oconnor MD September 06, 2016 08:26
[2016-09-06] MEDS: amLODIPine BESYLATE 5 MG TAB PO SCH (14:50)
[2016-09-06] MEDS: LEVOTHYROXINE SODIUM 150 MCG TAB PO SCH (14:50)
[2016-09-06] MEDS: METOPROLOL TARTRATE 100 MG TAB PO SCH ×2 (14:51→21:05)
[2016-09-06] MEDS: CEFEPIME INJ 1,000 MG in SODIUM CHLORIDE 0.9% INJ 100 ML IV SCH (14:52)
[2016-09-06] MEDS ORDERED: VANCOMYCIN TROUGH ONE (15:45)
[2016-09-06 16:18] LABS: CHLORIDE 108 MEQ/L (98-107); POTASSIUM 3.6 MEQ/L (3.5-5.1); SODIUM (NA) 142 MEQ/L (136-145)
[2016-09-06 16:22] LABS: ANION GAP 8 MEQ/L (5-15); BICARBONATE 25.8 MEQ/L (21.0-32.0); BLOOD UREA NITROGEN 15 MG/DL (7-18)
[2016-09-06 16:25] LABS: ALT (GPT) 83 U/L (12-78); AST (GOT) 48 U/L (15-37); GLOMERULAR FILTRATION RATE 52 ML/MIN (>89)
[2016-09-06] MEDS ORDERED: OSEL75 PO (16:25)
--- NOTE | 2016-09-06 16:25 | HHI.DCPOC ---
Discharge Care Plan Diagnosis: (1) Sepsis (2) Altered mental status Your Health Problems Are: Cough Goals to Promote Your Health * To prevent worsening of your condition and complications * To maintain your health at the optimal level Directions to Meet Your Goals Take your medications as prescribed Follow your dietary instruction Follow activity as directed Keep your appointments as scheduled Take your immunizations and boosters as scheduled If your symptoms worsen call your PCP, if no PCP go to Urgent Care Center or Emergency Room Smoking is Dangerous to Your Health. Avoid second hand smoke Call the 24-hour hour crisis hotline for domestic abuse at Sameera Oconnor MD September 06, 2016 16:25
[2016-09-06 16:27] LABS: TOTAL BILIRUBIN ADULT 0.4 MG/DL (0.2-1.0)
[2016-09-06 16:28] LABS: ALKALINE PHOSPHATASE 116 U/L (45-117)
[2016-09-06] MEDS: VANCOMYCIN 1,000 MG/NS 250 ML IV SCH ×2 (16:28)
[2016-09-06 17:18] LABS: VANCOMYCIN TROUGH 10.8 MCG/ML (5.0-10.0)
[2016-09-07] VITALS: BP 133/61; PULSE 66; RESP 20; TEMP 97; O2SAT 100
[2016-09-07 04:00] VITALS: BP 151/72; PULSE 62; RESP 20; TEMP 97.8; O2SAT 94
[2016-09-07] MEDS: LEVOTHYROXINE SODIUM 150 MCG TAB PO SCH (05:46)
[2016-09-07 08:00] VITALS: BP 128/64; PULSE 69; RESP 20; TEMP 95.5; O2SAT 94
--- NOTE | 2016-09-07 08:43 | HHI.PR ---
Subjective Remarks looks and feels better today. no fever. no new complaints. d/w the and PT at the bedside. Objective Vitals Vital Signs Date Time Temp Pulse Resp B/P Pulse Ox O2 Delivery O2 Flow Rate FiO2 09/07/16 04:00 97.8 62 20 151/72 94 09/07/16 00:00 97.0 66 20 133/61 100 09/06/16 20:00 98.6 69 20 147/68 93 09/06/16 19:49 94 09/06/16 16:00 99.0 67 18 147/74 96 09/06/16 12:00 97.8 72 18 130/65 96 I/O 09/06/16 09/06/16 09/06/16 09/07/16 09/07/16 09/07/16 07:00 15:00 23:00 07:00 15:00 23:00 Intake Total 60 ml 627 ml 360 ml 60 ml Balance 60 ml 627 ml 360 ml 60 ml Intake Oral 60 ml 525 ml 360 ml 60 ml IV Total 102 ml # Voids 1 3 2 2 # Bowel Movements 0 0 0 Result Diagram: 09/05/16 0520 09/06/16 1550 Imaging Last Impressions Carotid Artery Ultrasound 09/04/16 0000 Signed Impressions: Service Date/Time: Sunday, September 04, 2016 08:33 - CONCLUSION: Mild flow velocity acceleration across both carotid bifurcations likely indicative of at least moderate stenotic narrowing. Further evaluation with CTA examination of the arch and carotids recommended Deejay Apodaca MD Chest X-Ray 09/03/16 1458 Signed Impressions: Service Date/Time: Saturday, September 03, 2016 15:19 - CONCLUSION: Examination is degraded by mild motion artifact. Lungs are underinflated and there is atelectasis at the lung bases. Deejay Nathan MD Head CT 09/03/16 0000 Signed Impressions: Service Date/Time: Saturday, September 03, 2016 14:55 - CONCLUSION: No acute abnormality. Abel Stewart MD Gall Bladder Ultrasound 09/03/16 0000 Signed Impressions: Service Date/Time: Saturday, September 03, 2016 17:02 - CONCLUSION: 1. Cholelithiasis and sludge. There is no definite wall thickening or pericholecystic fluid. 2. The echogenicity of the right kidney is equal to that of the liver which can be seen in medical renal disease. There is a small amount of free fluid. 3. Small amount of free fluid. Abel Stewart MD Brain MRI 09/03/16 0000 Signed Impressions: Service Date/Time: Saturday, September 03, 2016 21:31 - CONCLUSION: 1. No acute findings. Mild chronic white matter ischemic changes. Memo Caba MD Objective Remarks GENERAL: elderly male, in no apparent distress. CARDIOVASCULAR: Regular rate and regular rhythm without murmurs, gallops, or rubs. RESPIRATORY: Clear to auscultation. Breath sounds equal bilaterally. No wheezes , rales, or rhonchi. GASTROINTESTINAL: Abdomen soft, non-tender, nondistended. Normal, active bowel sounds MUSCULOSKELETAL: Extremities without clubbing, cyanosis, or edema. NEURO: Alert & Oriented x4 to person, place, time, situation. Moves all ext x4 Procedures none Medications and IVs Current Medications Sodium Chloride 1,000 ml @ 70 mls/hr [id number] ONCE IV Last administered on 09/03 15:34; Start 09/03/16 at 14:58; Stop 09/03/16 at 16:33; Status DC Sodium Chloride 1,000 ml @ 1,000 mls/hr Q1H ONCE IV Last administered on 15:34; Start 09/03/16 at 14:58; Stop 09/03/16 at 15:57; Status DC Sodium Chloride 1,000 ml @ 1,000 mls/hr Q1H ONCE IV Last administered on 16:02; Start 09/03/16 at 14:58; Stop 09/03/16 at 15:57; Status DC Sodium Chloride 400 ml @ 1,000 mls/hr Q24M ONCE IV Last administered on 16:41; Start 09/03/16 at 14:58; Stop 09/03/16 at 15:21; Status DC Vancomycin HCl 1000 mg/Sodium Chloride 250 ml @ 250 mls/hr ONCE ONCE IV Last administered on 09/03/16 16:03; Start 09/03/16 at 15:00; Stop 09/03/16 at 15:59 ; Status DC Cefepime HCl 2000 mg/Sodium Chloride 100 ml @ 200 mls/hr ONCE ONCE IV Last administered on 09/03/16 15:35; Start 09/03/16 at 15:00; Stop 09/03/16 at 15:29 ; Status DC Sodium Chloride (NS 1000 ml Inj) 1,000 ml @ 150 mls/hr Q6H40M IV Last administered on 09/05/16 08:39; Start 09/03/16 at 16:25; Stop 09/05/16 at 12:52 ; Status DC Sodium Chloride (NS Flush) 2 ml UNSCH PRN IV FLUSH FLUSH AFTER USING IV ACCESS ; Start 09/03/16 at 16:30 Sodium Chloride (NS Flush) 2 ml BID IV FLUSH Last administered on 09/06/16 21: 06; Start 09/03/16 at 21:00 Ondansetron HCl (Zofran Inj) 4 mg Q6H PRN IVP NAUSEA OR VOMITING; Start at 16:30 Naloxone HCl 0.4 mg 0.4 mg UNSCH PRN IV SEE LABEL COMMENTS; Start 09/03/16 at 16:30 Vancomycin HCl 1000 mg/Sodium Chloride 250 ml @ 250 mls/hr Q12H IV ; Start at 03:00; Stop 09/04/16 at 03:00; Status DC Pharmacy Profile Note 0 ml @ 0 mls/hr UNSCH OTHER ; Start 09/03/16 at 18:00 Cefepime HCl/ Sodium Chloride (Maxipime Inj/NS Inj) 100 ml @ 200 mls/hr Q24H IV Last administered on 09/06/16 14:52; Start 09/04/16 at 15:00 Lactobacillus Acidophilus (Lactinex) 1 tab TID PO Last administered on 19:49; Start 09/03/16 at 18:00 Aspirin (Aspirin Chew) 81 mg DAILY CHEW Last administered on 09/06/16 08:20; Start 09/04/16 at 09:00 Acetaminophen 650 mg 650 mg Q6H PRN RECTAL FEver Last administered on 08:08; Start 09/03/16 at 18:00; Stop 09/04/16 at 11:18; Status DC Vancomycin HCl/ Sodium Chloride (Vancomycin Inj/ NS 250 ml Inj) 262.5 ml @ 250 mls/hr Q36H IV ; Start 09/04/16 at 20:00; Stop 09/04/16 at 20:00; Status DC Miscellaneous Information SPECIFIC LAB TO BE DRAWN:VANCOMY... ONCE ONCE .XX ; Start 09/09/16 at 07:45; Stop 09/09/16 at 07:45; Status DC Vancomycin HCl/ Sodium Chloride (Vancomycin Inj/ NS 250 ml Inj) 250 ml @ 250 mls/hr DAILY@16 IV Last administered on 09/06/16 16:28; Start 09/04/16 at 16: 00 Miscellaneous Information SPECIFIC LAB TO BE DRAWN:VANCOMY... ONCE ONCE .XX Last administered on 09/06/16 16:27; Start 09/06/16 at 15:45; Stop 09/06/16 at 15:46; Status DC Acetaminophen (Tylenol) 650 mg Q4H PRN PO FEVER Last administered on 09/05/16 21:46; Start 09/04/16 at 11:30 Oseltamivir Phosphate (Tamiflu) 75 mg BID PO Last administered on 09/06/16 21: 05; Start 09/04/16 at 11:30 Amlodipine Besylate (Norvasc) 5 mg DAILY PO Last administered on 09/06/16 14: 50; Start 09/06/16 at 13:15 Levothyroxine Sodium (Synthroid) 150 mcg DAILY@06 PO Last administered on 05:46; Start 09/06/16 at 13:15 Metoprolol Tartrate (Lopressor) 100 mg BID PO Last administered on 09/06/16 21 :05; Start 09/06/16 at 13:15 A/P Assessment and Plan A/P Sepsis Resolved no recurrent fever Influenza-improving Follow clinically continue tamiflu Acute kidney injury Resolved Metabolic encephalopathy Resolved Patient at baseline Elevated LFTs 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 see med list. d./w the patient and his . d/w the PT. time spent 32 min. Sameera Oconnor MD September 07, 2016 08:43
--- NOTE | 2016-09-07 08:47 | HHI.DS ---
Discharge Summary Admission Date September 03, 2016 at 16:21 Discharge Date: September 07, 2016 Admitting Diagnosis sepsis, altered mental status (1) Sepsis ICD Code: A41.9 Diagnosis: Principal (2) Altered mental status ICD Code: R41.82 Diagnosis: Principal (3) Lactic acidosis ICD Code: E87.2 Diagnosis: Principal (4) JESSICA (acute kidney injury) ICD Code: N17.9 Diagnosis: Secondary (5) LFT elevation ICD Code: R94.5 Diagnosis: Secondary Procedures none Brief History - From Admission Mr. Okeefe is an 86-year-old male. He is brought in by his family secondary to confusion. She's been sick for about 2 days with upper respiratory tract type symptoms. His son reports that she mowed the yard for 3 hours yesterday. Today he is coming in with fevers, acute kidney injury, lactic acidosis, decreased speech (resolved by the time I see him), elevated LFTs. She meets criteria for severe sepsis. Symptoms would correlate with a pneumonia but no pneumonia seen on imaging. She has been started on cefepime and vancomycin for broad coverage. Declined speech was suspicious for a TIA versus CVA. CT showed no evidence of this. MRI is pending. His current septic state could also give neurological findings as were seen. He still having symptoms of fever and chills when seen. No other complaints. Blood pressures have remained stable. No chest pain. CBC/BMP: 09/05/16 0520 09/06/16 1550 Significant Findings Laboratory Tests Test 09/05/16 09/06/16 05:20 15:50 White Blood Count 3.1 TH/MM3 (4.0-11.0) Red Blood Count 4.17 MIL/MM3 (4.50-5.90) Hemoglobin 12.4 GM/DL (13.0-17.0) Hematocrit 37.6 % (39.0-51.0) Platelet Count 96 TH/MM3 (150-450) Monocytes (%) (Auto) 16.8 % (0.0-8.0) Neutrophils # (Auto) 1.6 TH/MM3 (1.8-7.7) Chloride Level 110 MEQ/L 108 MEQ/L (98-107) (98-107) Creatinine 1.40 MG/DL (0.60-1.30) Estimat Glomerular Filtration 48 ML/MIN (>89) 52 ML/MIN (>89) Rate Calcium Level 7.9 MG/DL 8.4 MG/DL (8.5-10.1) (8.5-10.1) Phosphorus Level 1.6 MG/DL (2.5-4.9) Albumin 3.0 GM/DL 3.0 GM/DL (3.4-5.0) (3.4-5.0) Aspartate Amino Transf 48 U/L (15-37) (AST/SGOT) Alanine Aminotransferase 83 U/L (12-78) (ALT/SGPT) Vancomycin Level Trough 10.8 MCG/ML (5.0-10.0) Imaging Last Impressions Carotid Artery Ultrasound 09/04/16 0000 Signed Impressions: Service Date/Time: Sunday, September 04, 2016 08:33 - CONCLUSION: Mild flow velocity acceleration across both carotid bifurcations likely indicative of at least moderate stenotic narrowing. Further evaluation with CTA examination of the arch and carotids recommended Deejay Apodaca MD Chest X-Ray 09/03/16 9428 Signed Impressions: Service Date/Time: Saturday, September 03, 2016 15:19 - CONCLUSION: Examination is degraded by mild motion artifact. Lungs are underinflated and there is atelectasis at the lung bases. Deejay Nathan MD Head CT 09/03/16 0000 Signed Impressions: Service Date/Time: Saturday, September 03, 2016 14:55 - CONCLUSION: No acute abnormality. Abel Stewart MD Gall Bladder Ultrasound 09/03/16 0000 Signed Impressions: Service Date/Time: Saturday, September 03, 2016 17:02 - CONCLUSION: 1. Cholelithiasis and sludge. There is no definite wall thickening or pericholecystic fluid. 2. The echogenicity of the right kidney is equal to that of the liver which can be seen in medical renal disease. There is a small amount of free fluid. 3. Small amount of free fluid. Abel Setwart MD Brain MRI 09/03/16 0000 Signed Impressions: Service Date/Time: Saturday, September 03, 2016 21:31 - CONCLUSION: 1. No acute findings. Mild chronic white matter ischemic changes. Memo Caba MD PE at Discharge GENERAL: elderly male, in no apparent distress. CARDIOVASCULAR: Regular rate and regular rhythm without murmurs, gallops, or rubs. RESPIRATORY: Clear to auscultation. Breath sounds equal bilaterally. No wheezes , rales, or rhonchi. GASTROINTESTINAL: Abdomen soft, non-tender, nondistended. Normal, active bowel sounds MUSCULOSKELETAL: Extremities without clubbing, cyanosis, or edema. NEURO: Alert & Oriented x4 to person, place, time, situation. 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-f/u as outpatient DVT prophylaxis SCD's Pt Condition on Discharge: Good Discharge Disposition: Disch w/ Home Health Serv Discharge Time: > 30 minutes Discharge Instructions DIET: Follow Instructions for: Heart Healthy Diet Speech Therapy-Diet Recommends: Soft Activities you can perform: Regular-No Restrictions Follow up Referrals: PCP Follow-up New Medications: Oseltamivir (Tamiflu) 75 Mg Cap 75 MG PO BID flu Days 2 CAP Continued Medications: Amlodipine (Amlodipine) 5 Mg Tab 5 MG PO DAILY Blood Pressure Management #30 Ref 0 TAB Enalapril (Enalapril) 20 Mg Tab 20 MG PO BID #30 Ref 0 TAB Levothyroxine (Levothyroxine) 150 Mcg Tab 150 MCG PO daily but mon Thyroid #30 Ref 0 TAB Metoprolol Tartrate (Metoprolol Tartrate) 100 Mg Tab 100 MG PO BID #60 Ref 0 TAB Sameera Oconnor MD September 07, 2016 08:47
--- NOTE | 2016-09-07 08:48 | HHI.FF ---
Face to Face Verification Diagnosis: (1) Sepsis Physical Therapy Order: Evaluate and Treat Home Health Nursing Order: Medical education Signs/symptoms of disease process Medication education-adverse effect I have seen patient Avril Eden on 09/07/16. My clinical findings support the need for the requested home health care services because: Ltd mobility - disease progression I certify that my clinical findings support that this patient is homebound because: Unsteady gait/balance Sameera Oconnor MD September 07, 2016 08:48
[2016-09-07] MEDS: SODIUM CHLORIDE 0.9% FLUSH 10 ML FLUSH IV FLUSH SCH (09:00)
[2016-09-07] MEDS: OSELTAMIVIR PHOSPHATE 75 MG CAP PO SCH (09:42)
[2016-09-07] MEDS: amLODIPine BESYLATE 5 MG TAB PO SCH (09:42)
[2016-09-07] MEDS: ASPIRIN 81 MG CHEW TAB CHEW SCH (09:42)
[2016-09-07] MEDS: LACTOBACILLUS ACIDOPHILUS TAB PO SCH (09:42)
[2016-09-07] MEDS: METOPROLOL TARTRATE 100 MG TAB PO SCH (09:42)
[2016-09-09] MEDS ORDERED: VANCOMYCIN TROUGH ONE (07:45)
== END 2016-09-07 11:55 | disposition home health service (06) | DRG 871 ==
LOC: PHED 14:34 → PHEDA 16:21 → PH3A 18:30
PROVIDERS: ADMIT Internal Medicine; ATTEND Internal Medicine
DX: A41.9 Sepsis, unspecified organism (principal); R65.21 Severe sepsis with septic shock; G93.41 Metabolic encephalopathy; J11.00 Influenza due to unidentified influenza virus with unspecified type of pneumonia; N17.9 Acute kidney failure, unspecified; E87.2 Acidosis; I25.810 Atherosclerosis of coronary artery bypass graft(s) without angina pectoris; J98.11 Atelectasis; R47.01 Aphasia; Z95.1 Presence of aortocoronary bypass graft; K80.20 Calculus of gallbladder without cholecystitis without obstruction; R00.0 Tachycardia, unspecified; R47.1 Dysarthria and anarthria; E78.00 Pure hypercholesterolemia, unspecified; I10 Essential (primary) hypertension; H91.90 Unspecified hearing loss, unspecified ear; Z87.891 Personal history of nicotine dependence
CPT/HCPCS: 70450; 70551; 71010; 76705; 80053; 80069; 80202; 80307; 81001; 82550; 82948; 83605; 83735; 84484; 85025; 85384; 85610; 85730; 86850; 86900; 86901; 87040; 87493; 87804; 93005; 93880; 96365; 96367; J0692; J3370; J7030; J7050

== ENCOUNTER 2016-11-01 11:15 | Emergency (ER) | payer MEDICARE, OTHER ==
[~2016-11-01] VITALS: Ht 170.2 cm; Wt 66.0 kg
[~2016-11-01 11:15] MED LIST: AMLO5TAB2 PO; ENAL20TA PO; LEVO150T7 PO; METO100T PO; OSEL75 PO
[2016-11-01 11:20] VITALS: BP 166/75; PULSE 82; RESP 16; TEMP 97.7; O2SAT 96
[2016-11-01] MEDS ORDERED: MECLIZINE HCL 25 MG TAB PO ONE (11:45)
[2016-11-01] MEDS ORDERED: ONDANSETRON HCL 4 MG/2 ML VIAL IVP ONE (11:45)
[2016-11-01] MEDS ORDERED: SODIUM CHLORIDE 0.9% FLUSH 10 ML FLUSH IVF PRN (11:45)
[2016-11-01 11:59] LABS: AUTOMATED NEUTROPHIL # 3.6 TH/MM3 (1.8-7.7); BASOPHIL # 0.1 TH/MM3 (0-0.2); BASOPHIL % 0.9 % (0.0-2.0); EOSINOPHIL # 0.1 TH/MM3 (0-0.4); HEMATOCRIT 40.5 % (39.0-51.0); HEMO FLAGS DIFF FINAL; LYMPH % 25.6 % (9.0-44.0); LYMPHOCYTE # 1.5 TH/MM3 (1.0-4.8); MEAN CELL VOLUME 89.4 FL (80.0-100.0); MEAN CORPUSCULAR HEMOGLOBIN 29.8 PG (27.0-34.0); MEAN CORPUSCULAR HGB CONC 33.4 % (32.0-36.0); MONO % 7.7 % (0.0-8.0); NEUT % 64.8 % (16.0-70.0); PLATELET COUNT 167 TH/MM3 (150-450); RED BLOOD COUNT 4.53 MIL/MM3 (4.50-5.90); RED CELL DISTRIBUTION WIDTH 12.6 % (11.6-17.2); WHITE BLOOD COUNT 5.7 TH/MM3 (4.0-11.0)
[2016-11-01 12:01] VITALS: O2SAT 100
[2016-11-01 12:01] LABS: BLOOD, URINE NEG (NEG); GLUCOSE,URINE NEG (NEG); KETONE, URINE NEG (NEG); NITRITE,URINE NEG (NEG)
[2016-11-01 12:10] LABS: MUCUS URINE FEW /lpf (OCC); RBC, URINE 0-3 /hpf (0-3); URINE COLOR YELLOW (YELLW/STRAW)
[2016-11-01 12:10] LABS: CHLORIDE 107 MEQ/L (98-107); POTASSIUM 4.5 MEQ/L (3.5-5.1); SODIUM (NA) 142 MEQ/L (136-145)
[2016-11-01 12:11] LABS: BACTERIA, URINE FEW /hpf; COMMENT (UR) CULTURE INDICATED; CULTURE IF INDICATED CULTURE INDICATED; SQUAMOUS EPITHELIAL CELL URINE 0-5 /hpf (0-5)
[2016-11-01 12:13] LABS: ANION GAP 5 MEQ/L (5-15); BICARBONATE 30.4 MEQ/L (21.0-32.0); MAGNESIUM 2.1 MG/DL (1.5-2.5); PROTHROMBIN TIME - PATIENT 10.7 SEC (9.8-11.6)
[2016-11-01 12:14] LABS: BLOOD UREA NITROGEN 26 MG/DL (7-18)
[2016-11-01 12:16] LABS: ALT (GPT) 22 U/L (12-78); AST (GOT) 22 U/L (15-37)
[2016-11-01 12:17] LABS: GLOMERULAR FILTRATION RATE 36 ML/MIN (>89)
[2016-11-01 12:18] LABS: TOTAL BILIRUBIN ADULT 0.5 MG/DL (0.2-1.0)
[2016-11-01 12:19] LABS: ALKALINE PHOSPHATASE 91 U/L (45-117)
[2016-11-01 12:21] LABS: CREATINE KINASE 49 U/L (39-308)
--- NOTE | 2016-11-01 12:38 | RADRPT ---
EXAM DATE/TIME: 11/01/2016 12:22 [facility] COMPARISON: CHEST SINGLE AP, September 03, 2016, 15:19. INDICATIONS : Dizziness. MEDICAL HISTORY : Hypertension. Cardiovascular disease SURGICAL HISTORY : CABG. ENCOUNTER: Initial ACUITY: 1 day PAIN SCORE: 0/10 LOCATION: Bilateral chest FINDINGS: A single view of the chest demonstrates minimal bibasilar densities. Status post CABG. Heart normal in size. Osseous structures are intact. CONCLUSION: 1. Bibasilar atelectasis. Juan Antonio Hughes MD on November 01, 2016 at 12:36 Board Certified Radiologist. This report was verified electronically.
--- NOTE | 2016-11-01 12:41 | RADRPT ---
EXAM DATE/TIME: 11/01/2016 12:22 [facility] COMPARISON: CT BRAIN W/O CONTRAST, September 03, 2016, 14:55. INDICATIONS : Dizziness. RADIATION DOSE: 62.60 CTDIvol (mGy) MEDICAL HISTORY : Hypertension. Cardiovascular disease SURGICAL HISTORY : CABG ENCOUNTER: Initial ACUITY: 1 day PAIN SCALE: 0/10 LOCATION: cranial TECHNIQUE: Multiple contiguous axial images were obtained of the head. Using automated exposure control and adj ustment of the mA and/or kV according to patient size, radiation dose was kept as low as reasonably a chievable to obtain optimal diagnostic quality images. DICOM format image data is available electro nically for review and comparison. FINDINGS: CEREBRUM: The ventricles are normal for age. No evidence of midline shift, mass lesion, hemorrhage or acute in farction. No extra-axial fluid collections are seen. POSTERIOR FOSSA: The cerebellum and brainstem are intact. The 4th ventricle is midline. The cerebellopontine angle i s unremarkable. EXTRACRANIAL: The visualized portion of the orbits is intact. SKULL: The calvaria is intact. No evidence of skull fracture. CONCLUSION: No acute intracranial abnormality. Juan Antonio Hughes MD on November 01, 2016 at 12:38 Board Certified Radiologist. This report was verified electronically.
--- NOTE | 2016-11-01 12:41 | PD ---
HPI Chief Complaint: Dizziness Time Seen by Provider: 11:45 Travel History International Travel<30 days: No Contact w/Intl Traveler<30days: No Traveled to known affect area: No History of Present Illness HPI 86-year-old male patient with history of CAD, CABG, hypertension, presents to the ER today brought in by his because this morning he got up and was feeling fine and is started getting some dizziness, room spinning that is now subsiding in the ER. He has been nauseous and had one episode of vomiting. He denies any fevers, diarrhea, abdominal pains, chest pains, or any other symptoms. Modifying Factors: None Associated Signs & Symptoms: Dizziness and nausea Risk Factors: Elderly PFSH Past Medical History Hx Anticoagulant Therapy: Yes (UNSURE) High Cholesterol: Yes Coronary Artery Disease: Yes Diminished Hearing: No Hypertension: Yes Immunizations Current: Yes Thyroid Disease: Yes Tetanus Vaccination: Unknown Past Surgical History Coronary Artery Bypass Graft: Yes Social History Alcohol Use: No Tobacco Use: No Substance Use: No Allergies-Medications (Allergen,Severity, Reaction): Coded Allergies: No Known Allergies (Unverified , 11/01/16) Reported Meds & Prescriptions Reported Meds & Active Scripts Active Reported Levothyroxine (Levothyroxine Sodium) 150 Mcg Tab 150 Mcg PO DAILY BUT MON Metoprolol Tartrate 100 Mg Tab 100 Mg PO BID Amlodipine (Amlodipine Besylate) 5 Mg Tab 5 Mg PO DAILY Enalapril (Enalapril Maleate) 20 Mg Tab 20 Mg PO BID Review of Systems Except as stated in HPI: all other systems reviewed are Neg Physical Exam Narrative GENERAL: Well-developed elderly white male patient currently in mild distress. Awake and oriented 3. SKIN: Focused skin assessment warm/dry. HEAD: Atraumatic. Normocephalic. EYES: Pupils equal and round. No scleral icterus. No injection or drainage. ENT: No nasal bleeding or discharge. Mucous membranes pink and moist. NECK: Trachea midline. No JVD. CARDIOVASCULAR: Regular rate and rhythm. No murmur appreciated. RESPIRATORY: No accessory muscle use. Clear to auscultation. Breath sounds equal bilaterally. GASTROINTESTINAL: Abdomen soft, non-tender, nondistended. Hepatic and splenic margins not palpable. MUSCULOSKELETAL: No obvious deformities. No clubbing. No cyanosis. No edema. NEUROLOGICAL: Awake and alert. No obvious cranial nerve deficits. Motor grossly within normal limits. Normal speech. No pronator drift. PSYCHIATRIC: Appropriate mood and affect; insight and judgment normal. Data Data Last Documented VS Vital Signs Date Time Temp Pulse Resp B/P Pulse Ox O2 Delivery O2 Flow Rate FiO2 11/01/16 13:07 77 16 113/57 78 16 137/60 86 16 138/83 11/01/16 12:43 Room Air 11/01/16 12:43 98 11/01/16 11:20 97.7 Orders Electrocardiogram (11/01/16 11:45) Complete Blood Count With Diff (11/01/16 11:45) Comprehensive Metabolic Panel (11/01/16 11:45) Magnesium (Mg) (11/01/16 11:45) Ckmb (Isoenzyme) Profile (11/01/16 11:45) Troponin I (11/01/16 11:45) Act Partial Throm Time (Ptt) (11/01/16 11:45) Prothrombin Time / Inr (Pt) (11/01/16 11:45) Urinalysis - C+S If Indicated (11/01/16 11:45) Chest, Single Ap (11/01/16 11:45) Ct Brain W/O Iv Contrast(Rout) (11/01/16 11:45) Ecg Monitoring (11/01/16 11:45) Iv Access Insert/Monitor (11/01/16 11:45) Oximetry (11/01/16 11:45) Meclizine (Antivert) (11/01/16 11:45) Ondansetron Inj (Zofran Inj) (11/01/16 11:45) Sodium Chloride 0.9% Flush (Ns Flush) (11/01/16 11:45) Urine Culture (11/01/16 11:50) Orthostatic Vital Signs (11/01/16 12:48) Labs Laboratory Tests Test 11/01/16 11/01/16 11:48 11:50 White Blood Count 5.7 TH/MM3 Red Blood Count 4.53 MIL/MM3 Hemoglobin 13.5 GM/DL Hematocrit 40.5 % Mean Corpuscular Volume 89.4 FL Mean Corpuscular Hemoglobin 29.8 PG Mean Corpuscular Hemoglobin 33.4 % Concent Red Cell Distribution Width 12.6 % Platelet Count 167 TH/MM3 Mean Platelet Volume 8.0 FL Neutrophils (%) (Auto) 64.8 % Lymphocytes (%) (Auto) 25.6 % Monocytes (%) (Auto) 7.7 % Eosinophils (%) (Auto) 1.0 % Basophils (%) (Auto) 0.9 % Neutrophils # (Auto) 3.6 TH/MM3 Lymphocytes # (Auto) 1.5 TH/MM3 Monocytes # (Auto) 0.4 TH/MM3 Eosinophils # (Auto) 0.1 TH/MM3 Basophils # (Auto) 0.1 TH/MM3 CBC Comment DIFF FINAL Differential Comment Prothrombin Time 10.7 SEC Prothromb Time International 1.0 RATIO Ratio Activated Partial 28.0 SEC Thromboplast Time Sodium Level 142 MEQ/L Potassium Level 4.5 MEQ/L Chloride Level 107 MEQ/L Carbon Dioxide Level 30.4 MEQ/L Anion Gap 5 MEQ/L Blood Urea Nitrogen 26 MG/DL Creatinine 1.80 MG/DL Estimat Glomerular Filtration 36 ML/MIN Rate Random Glucose 110 MG/DL Calcium Level 9.4 MG/DL Magnesium Level 2.1 MG/DL Total Bilirubin 0.5 MG/DL Aspartate Amino Transf 22 U/L (AST/SGOT) Alanine Aminotransferase 22 U/L (ALT/SGPT) Alkaline Phosphatase 91 U/L Total Creatine Kinase 49 U/L Troponin I LESS THAN 0.02 NG/ML Total Protein 8.0 GM/DL Albumin 3.7 GM/DL Urine Color YELLOW Urine Turbidity HAZY Urine pH 6.0 Urine Specific Sunflower 1.020 Urine Protein TRACE mg/dL Urine Glucose (UA) NEG mg/dL Urine Ketones NEG mg/dL Urine Occult Blood NEG Urine Nitrite NEG Urine Bilirubin NEG Urine Leukocyte Esterase SMALL Urine RBC 0-3 /hpf Urine WBC 9-14 /hpf Urine Squamous Epithelial 0-5 /hpf Cells Urine Bacteria FEW /hpf Urine Mucus FEW /lpf Microscopic Urinalysis Comment CULTURE INDICATED MDM Medical Decision Making Medical Screen Exam Complete: Yes Emergency Medical Condition: Yes Medical Record Reviewed: Yes Interpretation(s) EKG shows NSR, no ST elevation or depression, and no arrhythmias. No significant T-wave inversions. Laboratory Tests Test 11/01/16 11/01/16 11:48 11:50 Blood Urea Nitrogen 26 MG/DL (7-18) Creatinine 1.80 MG/DL (0.60-1.30) Estimat Glomerular Filtration 36 ML/MIN (>89) Rate Random Glucose 110 MG/DL (74-106) Troponin I LESS THAN 0.02 NG/ML (0.02-0.05) Urine Turbidity HAZY (CLEAR) Urine Leukocyte Esterase SMALL (NEG) Urine WBC 9-14 /hpf (0-5) Urine Bacteria FEW /hpf (NONE) Urine Mucus FEW /lpf (OCC) Last [address] 11/01/16 1145 Signed Impressions: Service Date/Time: October 12:22 - CONCLUSION: No acute intracranial abnormality. Juan Antonio Hughes MD Chest X-Ray 11/01/16 1145 Signed Impressions: Service Date/Time: , November 01, 2016 12:22 - CONCLUSION: 1. Bibasilar atelectasis. Juan Antonio Hughes MD Differential Diagnosis Dizzinessmetabolic issues versus dehydration versus dysrhythmias versus sepsis versus CVA Narrative Course Patient's symptoms had subsided while he was in the ER. No signs of orthostasis. He is ambulatory in the ER without issues and has no focal neurological deficits. Lab work does show UTI which is suspect could be causing some of his symptoms. Vital signs are stable in the ER. My plan would be to treat his UTI and have him follow-up with primary care physician. Return for any worsening in symptoms as needed. The plan has been discussed with him and he states understanding. Diagnosis Primary Impression: Dizziness Additional Impression: UTI (urinary tract infection) Med/Other Pt SpecificInfo: Prescription(s) given Scripts Sulfamethoxazole-Trimethoprim (Bactrim DS)800-160 Mg Tab1 Tab PO BID #14 TAB Ref 0 Prov:Melinda Ni MD 11/01/16 Disposition: 01 DISCHARGE HOME Condition: Stable Melinda Ni MD Nov 01, 2016 12:41
[2016-11-01 12:43] VITALS: BP 137/59; PULSE 77; RESP 15; O2SAT 98
[2016-11-01 13:07] VITALS: BP_SYST 113; BP_SYST 137; BP_SYST 138; BP_DIAS 57; BP_DIAS 60; BP_DIAS 83; RESP 16
[2016-11-01] MEDS ORDERED: BACT800T5 PO (13:21)
--- NOTE | 2016-11-02 14:59 | EKG ---
Date Performed: 11/01/2016 Time Performed: 12:02:25 PTAGE: 86 years EKG: Sinus rhythm MARKED LEFT AXIS DEVIATION PATTERN CONSISTENT WITH PULMONARY DISEASE SEPTAL MYOCARDIAL INFARCTION AB NORMAL ECG PREVIOUS TRACING : 09/03/2016 15.39 Compared to prior tracing no significant change DOCTOR: Dean Antoine Interpretating Date/Time 11/02/2016 14:55:59
== END 2016-11-01 13:27 | disposition home or self-care (01) ==
LOC: PHED 11:15
DX: R42 Dizziness and giddiness (principal); N39.0 Urinary tract infection, site not specified; R11.0 Nausea; I10 Essential (primary) hypertension; Z95.1 Presence of aortocoronary bypass graft; R94.31 Abnormal electrocardiogram [ECG] [EKG]; E78.00 Pure hypercholesterolemia, unspecified
CPT/HCPCS: 70450; 71010; 80053; 81001; 82550; 83735; 84484; 85025; 85610; 85730; 87086; 93005; 96374; 99285; J2405

== ENCOUNTER 2016-11-29 18:17 | Emergency (ER) | payer OTHER ==
[~2016-11-29] VITALS: Ht 167.6 cm; Wt 66.2 kg
[~2016-11-29 18:17] MED LIST changes: +BACT800T5 PO; -OSEL75 PO
[2016-11-29 18:29] VITALS: BP 160/72; PULSE 71; RESP 16; TEMP 97.8; O2SAT 97
[2016-11-29] MEDS ORDERED: MECL12.574 PO (20:22)
--- NOTE | 2016-11-29 20:22 | PD ---
HPI Chief Complaint: Dizziness Time Seen by Provider: 20:03 Travel History International Travel<30 days: No Contact w/Intl Traveler<30days: No Traveled to known affect area: No History of Present Illness HPI This 86-year-old male presents with complaint of dizziness. He has had dizziness off and on in the past. He had a CAT scan here in October which was normal and he was here in August and had an MRI which was normal. He gets intermittent bouts of dizziness. Apparently his insurance company told him that he should go to the urgent care center next time he was dizzy. He went there today and the EKG. They interpreted the EKG is abnormal and told the patient to come here. He did not have any chest pain or palpitations. He says he is not dizzy now. He has not been given any medication for the dizziness. He says he had when he got up this morning but it has improved. He has a history of bypass surgery PFSH Past Medical History Hx Anticoagulant Therapy: Yes (UNSURE) Cardiovascular Problems: Yes (htn on meds) High Cholesterol: Yes Coronary Artery Disease: Yes Diminished Hearing: No Hypertension: Yes Immunizations Current: Yes Thyroid Disease: Yes Tetanus Vaccination: > 5 Years Influenza Vaccination: No Past Surgical History Coronary Artery Bypass Graft: Yes (2000: 3 VESSEL) Social History Alcohol Use: No Tobacco Use: No (QUIT: 1999) Substance Use: No Allergies-Medications (Allergen,Severity, Reaction): Coded Allergies: No Known Allergies (Unverified , 11/29/16) Reported Meds & Prescriptions Reported Meds & Active Scripts Active Reported Levothyroxine (Levothyroxine Sodium) 150 Mcg Tab 150 Mcg PO DAILY BUT MON Metoprolol Tartrate 100 Mg Tab 100 Mg PO BID Amlodipine (Amlodipine Besylate) 5 Mg Tab 5 Mg PO DAILY Enalapril (Enalapril Maleate) 20 Mg Tab 20 Mg PO BID Review of Systems General / Constitutional: No: Fever, Chills Eyes: No: Diploplia HENT: Positive: Vertigo, No: Headaches Cardiovascular: No: Palpitations Respiratory: No: Cough, Shortness of Breath Gastrointestinal: No: Nausea, Vomiting Genitourinary: No: Urgency Musculoskeletal: No: Myalgias Skin: No Rash, No Itching Neurologic: Positive: Dizziness Psychiatric: No: Anxiety Physical Exam Narrative GENERAL: Well-developed male SKIN: Focused skin assessment warm/dry. HEAD: Atraumatic. Normocephalic. EYES: Pupils equal and round. No scleral icterus. No injection or drainage. ENT: No nasal bleeding or discharge. Mucous membranes pink and moist. NECK: Trachea midline. No JVD. CARDIOVASCULAR: Regular rate and rhythm. No murmur appreciated. RESPIRATORY: No accessory muscle use. Clear to auscultation. Breath sounds equal bilaterally. GASTROINTESTINAL: Abdomen soft, non-tender, nondistended. Hepatic and splenic margins not palpable. MUSCULOSKELETAL: No obvious deformities. No clubbing. No cyanosis. No edema. NEUROLOGICAL: Awake and alert. No obvious cranial nerve deficits. Motor grossly within normal limits. Normal speech. PSYCHIATRIC: Appropriate mood and affect; insight and judgment normal. Data Data Last Documented VS Vital Signs Date Time Temp Pulse Resp B/P Pulse Ox O2 Delivery O2 Flow Rate FiO2 11/29/16 18:29 97.8 71 16 160/72 97 MDM Medical Decision Making Medical Screen Exam Complete: Yes Emergency Medical Condition: Yes Medical Record Reviewed: Yes Differential Diagnosis Differential includes vertigo, labyrinthitis, Narrative Course This gentleman has long history of intermittent vertigo. He has had CT scan and MRI recently. His symptoms are not present now. I will write a prescription for Antivert for him to use on an as-needed basis. He was told to come here because of concern about his EKG but isn't EKG is unchanged from EKG of October Diagnosis Primary Impression: Vertigo Scripts Meclizine 12.5 Mg Tab12.5 Mg PO TID PRN (VERTIGO) #30 TAB Ref 0 Prov:Brandin Toro MD 11/29/16 Disposition: 01 DISCHARGE HOME Condition: Stable Brandin Toro MD Nov 29, 2016 20:22
== END 2016-11-29 20:48 | disposition home or self-care (01) ==
LOC: PHED 18:17
DX: R42 Dizziness and giddiness (principal)
CPT/HCPCS: 99283

== ENCOUNTER 2017-08-14 11:20 | Emergency (ER) | payer OTHER ==
[~2017-08-14] VITALS: Ht 160 cm; Wt 70.0 kg
[~2017-08-14 11:20] MED LIST changes: -BACT800T5 PO; +MECL12.574 PO
[2017-08-14 11:30] VITALS: BP 132/57; PULSE 74; RESP 16; TEMP 97.6; O2SAT 94
--- NOTE | 2017-08-14 11:40 | PD ---
HPI Chief Complaint: Abdominal Pain Time Seen by Provider: 11:28 Travel History International Travel<30 days: No Contact w/Intl Traveler<30days: No Traveled to known affect area: No History of Present Illness HPI This 87-year-old male is complaining of abdominal pain. He is apparently been having pain off and on for the past week. He actually is not having pain right now. When asked where it is worse he points to the right lower quadrant. He has not had any fever. He has been eating. There is no vomiting. He had a bowel movement yesterday. He has not had any abdominal surgery. He has had bypass surgery. He had an ultrasound in August 2016 which showed that he had cholelithiasis with sludge in the no evidence of cholecystitis. He is here with his who provides much of the information. She believes that he has the start of dementia and she says he is confused at times and can be quite forgetful. PFSH Past Medical History Hx Anticoagulant Therapy: Yes (UNSURE) Cardiovascular Problems: Yes (htn on meds) High Cholesterol: Yes Coronary Artery Disease: Yes Diminished Hearing: No Hypertension: Yes Immunizations Current: Yes Thyroid Disease: Yes Past Surgical History Coronary Artery Bypass Graft: Yes (1999: 3 VESSEL) Social History Alcohol Use: No Tobacco Use: No (QUIT: 1999) Substance Use: No Allergies-Medications (Allergen,Severity, Reaction): Coded Allergies: No Known Allergies (Unverified Adverse Reaction, Unknown, 08/14/17) Reported Meds & Prescriptions Reported Meds & Active Scripts Active Meclizine (Meclizine HCl) 12.5 Mg Tab 12.5 Mg PO TID PRN Reported Levothyroxine (Levothyroxine Sodium) 150 Mcg Tab 150 Mcg PO DAILY BUT MON Metoprolol Tartrate 100 Mg Tab 100 Mg PO BID Amlodipine (Amlodipine Besylate) 5 Mg Tab 5 Mg PO DAILY Enalapril (Enalapril Maleate) 20 Mg Tab 20 Mg PO BID Review of Systems General / Constitutional: No: Fever, Chills Eyes: No: Drainage HENT: No: Headaches Cardiovascular: No: Chest Pain or Discomfort, Palpitations Respiratory: No: Cough, Shortness of Breath Gastrointestinal: Positive: Abdominal Pain, No: Nausea, Vomiting, Diarrhea, Constipation, Loss of Appetite Genitourinary: No: Urgency, Frequency Musculoskeletal: No: Myalgias, Arthralgias Skin: No Rash, No Itching Neurologic: No: Weakness, Focal Abnormalities Endocrine: No: Heat Intolerance, Cold Intolerance Hematologic/Lymphatic: No: Easy Bruising Physical Exam Narrative GENERAL: Well-developed male SKIN: Focused skin assessment warm/dry. HEAD: Atraumatic. Normocephalic. EYES: Pupils equal and round. No scleral icterus. No injection or drainage. ENT: No nasal bleeding or discharge. Mucous membranes pink and moist. NECK: Trachea midline. No JVD. CARDIOVASCULAR: Regular rate and rhythm. No murmur appreciated. RESPIRATORY: No accessory muscle use. Clear to auscultation. Breath sounds equal bilaterally. GASTROINTESTINAL: Abdomen soft, non-tender, nondistended. Hepatic and splenic margins not palpable. MUSCULOSKELETAL: No obvious deformities. No clubbing. No cyanosis. No edema. NEUROLOGICAL: Awake and alert. No obvious cranial nerve deficits. Motor grossly within normal limits. Limited speech. PSYCHIATRIC: Appropriate mood and affect; insight and judgment limited Data Data Last Documented VS Vital Signs Date Time Temp Pulse Resp B/P (MAP) Pulse Ox O2 Delivery O2 Flow Rate FiO2 08/14/17 11:30 97.6 74 16 132/57 (82) 94 Orders Orders Complete Blood Count With Diff (08/14/17 11:37) Comprehensive Metabolic Panel (08/14/17 11:37) Lipase (08/14/17 11:37) Urinalysis - C+S If Indicated (08/14/17 11:37) Ct Abd/Pel W Iv Contrast(Rout) (08/14/17 11:37) Iodixanol 320 Inj (Rad Ct) (Visipaque 32 (08/14/17 13:24) Ed Discharge Order (08/14/17 14:05) Labs Laboratory Tests Test 08/14/17 11:55 08/14/17 12:15 08/14/17 12:20 Blood Urea Nitrogen 29 MG/DL Creatinine 1.80 MG/DL Random Glucose 122 MG/DL Total Protein 8.4 GM/DL Albumin 3.7 GM/DL Calcium Level 9.9 MG/DL Alkaline Phosphatase 127 U/L Aspartate Amino Transf (AST/SGOT) 26 U/L Alanine Aminotransferase (ALT/SGPT) 41 U/L Total Bilirubin 0.5 MG/DL Sodium Level 138 MEQ/L Potassium Level 4.8 MEQ/L Chloride Level 107 MEQ/L Carbon Dioxide Level 25.4 MEQ/L Anion Gap 6 MEQ/L Estimat Glomerular Filtration Rate 36 ML/MIN Lipase 240 U/L Urine Collection Type CLEAN CATCH Urine Color YELLOW Urine Turbidity CLEAR Urine pH 5.0 Urine Specific [place] GREATER/EQUAL 1.030 Urine Protein NEG mg/dL Urine Glucose (UA) NEG mg/dL Urine Ketones NEG mg/dL Urine Occult Blood MOD Urine Nitrite NEG Urine Bilirubin NEG Urine Urobilinogen 0.2 MG/DL Urine Leukocyte Esterase SMALL Urine RBC 20-24 /hpf Urine WBC 3-5 /hpf Urine Squamous Epithelial Cells 0-5 /hpf Microscopic Urinalysis Comment CULT NOT INDICATED Urine Collection Time 12:15 White Blood Count 8.0 TH/MM3 Red Blood Count 4.28 MIL/MM3 Hemoglobin 12.7 GM/DL Hematocrit 38.9 % Mean Corpuscular Volume 90.9 FL Mean Corpuscular Hemoglobin 29.7 PG Mean Corpuscular Hemoglobin Concent 32.7 % Red Cell Distribution Width 12.4 % Platelet Count 171 TH/MM3 Mean Platelet Volume 8.0 FL Neutrophils (%) (Auto) 74.2 % Lymphocytes (%) (Auto) 18.2 % Monocytes (%) (Auto) 5.8 % Eosinophils (%) (Auto) 1.1 % Basophils (%) (Auto) 0.7 % Neutrophils # (Auto) 5.8 TH/MM3 Lymphocytes # (Auto) 1.5 TH/MM3 Monocytes # (Auto) 0.5 TH/MM3 Eosinophils # (Auto) 0.1 TH/MM3 Basophils # (Auto) 0.1 TH/MM3 CBC Comment DIFF FINAL Differential Comment MDM Medical Decision Making Medical Screen Exam Complete: Yes Emergency Medical Condition: Yes Medical Record Reviewed: Yes Differential Diagnosis Differential includes diverticulitis appendicitis, abdominal pain Narrative Course Hemoglobin is 12.7 with a white count of 8000. Creatinine is 1.8. Urinalysis shows small leukocyte esterase only 3-5 white cells there are some red cells. On CT of the abdomen and pelvis there is noted to be a stone in the bladder but no other abnormality. I do not think this urinalysis warrants antibiotics. He will be released with recommendations for symptomatic treatment Diagnosis Primary Impression: Nonspecific abdominal pain Disposition: 01 DISCHARGE HOME Condition: Stable Brandin Toro MD August 14, 2017 11:40
[2017-08-14 12:16] LABS: CHLORIDE 107 MEQ/L (98-107); SODIUM (NA) 138 MEQ/L (136-145)
[2017-08-14 12:20] LABS: CALCIUM 9.9 MG/DL (8.5-10.1)
[2017-08-14 12:21] LABS: ALBUMIN 3.7 GM/DL (3.4-5.0); BICARBONATE 25.4 MEQ/L (21.0-32.0); BLOOD UREA NITROGEN 29 MG/DL (7-18); GLUCOSE,RANDOM 122 MG/DL (74-106)
[2017-08-14 12:24] LABS: ALT (GPT) 41 U/L (12-78); AST (GOT) 26 U/L (15-37); GLOMERULAR FILTRATION RATE 36 ML/MIN (>89)
[2017-08-14 12:25] LABS: TOTAL BILIRUBIN ADULT 0.5 MG/DL (0.2-1.0)
[2017-08-14 12:26] LABS: TOTAL PROTEIN 8.4 GM/DL (6.4-8.2)
[2017-08-14 12:27] LABS: ALKALINE PHOSPHATASE 127 U/L (45-117)
[2017-08-14 12:29] LABS: BILIRUBIN, URINE NEG (NEG); BLOOD, URINE MOD (NEG); GLUCOSE,URINE NEG (NEG); KETONE, URINE NEG (NEG); NITRITE,URINE NEG (NEG); URINE COLOR YELLOW (YELLW/STRAW); URINE LEUKOCYTE ESTERASE SMALL (NEG)
[2017-08-14 12:29] LABS: AUTOMATED NEUTROPHIL # 5.8 TH/MM3 (1.8-7.7); BASOPHIL # 0.1 TH/MM3 (0-0.2); BASOPHIL % 0.7 % (0.0-2.0); EOSINOPHIL # 0.1 TH/MM3 (0-0.4); EOSINOPHIL % 1.1 % (0.0-4.0); HEMATOCRIT 38.9 % (39.0-51.0); HEMOGLOBIN 12.7 GM/DL (13.0-17.0); LYMPH % 18.2 % (9.0-44.0); LYMPHOCYTE # 1.5 TH/MM3 (1.0-4.8); MEAN CELL VOLUME 90.9 FL (80.0-100.0); MEAN CORPUSCULAR HEMOGLOBIN 29.7 PG (27.0-34.0); MEAN CORPUSCULAR HGB CONC 32.7 % (32.0-36.0); MONO % 5.8 % (0.0-8.0); MONOCYTE # 0.5 TH/MM3 (0-0.9); NEUT % 74.2 % (16.0-70.0); PLATELET COUNT 171 TH/MM3 (150-450); RED BLOOD COUNT 4.28 MIL/MM3 (4.50-5.90); RED CELL DISTRIBUTION WIDTH 12.4 % (11.6-17.2)
[2017-08-14 12:50] LABS: SQUAMOUS EPITHELIAL CELL URINE 0-5 /hpf (0-5)
[2017-08-14] MEDS ORDERED: IODIXANOL 320 MG/ML 10 ML VIAL (for Rad CT) IVCONTRAST ONE (13:24)
--- NOTE | 2017-08-14 13:43 | RADRPT ---
EXAM DATE/TIME: 08/14/2017 13:08 [facility] COMPARISON: No previous studies available for comparison. INDICATIONS : Right lower quadrant pain. Umbilical pain. IV CONTRAST: 30 cc Visipaque (iodixanol) IV ORAL CONTRAST: No oral contrast ingested. RADIATION DOSE: 9.44 CTDIvol (mGy) MEDICAL HISTORY : Cardiovascular disease. Hypertension. SURGICAL HISTORY : CABG ENCOUNTER: Initial ACUITY: 1 week PAIN SCALE: 5/10 LOCATION: Umbilical TECHNIQUE: Volumetric scanning of the abdomen and pelvis was performed. Using automated exposure control and ad justment of the mA and/or kV according to patient size, radiation dose was kept as low as reasonably achievable to obtain optimal diagnostic quality images. DICOM format image data is available electro nically for review and comparison. FINDINGS: LOWER LUNGS: The visualized lower lungs are clear. LIVER: Homogeneous density without lesion. There is no dilation of the biliary tree. Multiple calcified gal lstones. SPLEEN: Normal size without lesion. PANCREAS: Within normal limits. KIDNEYS: Normal in size and shape. There is no mass or hydronephrosis. There is some vascular calcifications in both kidneys. There may be a faint tiny 1 mm calcific stone in the lower pole left kidney not caus ing obstruction. No definite right renal stones. The ureters are nondilated. ADRENAL GLANDS: Within normal limits. VASCULAR: There is no aortic aneurysm. Diffuse atherosclerotic changes. BOWEL/MESENTERY: The stomach, small bowel, and colon demonstrate no acute abnormality. There is no free intraperitone al air or fluid. The appendix is unremarkable. There is stool throughout the colon. No inflammatory c hanges. ABDOMINAL WALL: Within normal limits. RETROPERITONEUM: There is no lymphadenopathy. BLADDER: No wall thickening or mass. There is a calcified stone along the right side of the urinary bladder ba se. This measures about 5 mm. REPRODUCTIVE: Diffuse enlargement measuring 4.9 cm. INGUINAL: There is no lymphadenopathy. Bilateral inguinal hernias containing mesenteric fat. MUSCULOSKELETAL: Within normal limits for patient age. CONCLUSION: 1. Gallstones in the gallbladder. No glenoid tract obstruction. 2. Question of a tiny 1 mm left kidney stone not causing obstruction. 3. No evidence of hydronephrosis. 4. 5 mm bladder stone. 5. Diffuse enlargement of the prostate gland. Osmar Sanderson MD on August 14, 2017 at 13:36 Board Certified Radiologist. This report was verified electronically.
== END 2017-08-14 14:46 | disposition home or self-care (01) ==
LOC: PHED 11:20
DX: R10.31 Right lower quadrant pain (principal); I10 Essential (primary) hypertension; E78.00 Pure hypercholesterolemia, unspecified; I25.10 Atherosclerotic heart disease of native coronary artery without angina pectoris; E07.9 Disorder of thyroid, unspecified; Z95.1 Presence of aortocoronary bypass graft; Z87.891 Personal history of nicotine dependence
CPT/HCPCS: 74177; 80053; 81001; 83690; 85025; 99284; Q9967

== ENCOUNTER 2017-08-19 15:25 | Emergency (ER) | payer OTHER | END 2017-08-19 18:12 | disposition home or self-care (01) | LOC: PHED 15:25 | DX: R51 Headache (principal); I10 Essential (primary) hypertension; E78.00 Pure hypercholesterolemia, unspecified; E07.9 Disorder of thyroid, unspecified; I25.10 Atherosclerotic heart disease of native coronary artery without angina pectoris; Z95.1 Presence of aortocoronary bypass graft; Z87.891 Personal history of nicotine dependence | CPT/HCPCS: 99281 ==

== ENCOUNTER 2017-08-31 16:01 | Emergency (ER) | payer OTHER ==
[2017-08-31] VITALS (7 sets, daily range): BP systolic 126–181; BP diastolic 57–76; PULSE 97–114; RESP 16–20; TEMP 99.8–103.1; O2SAT 95–96
[~2017-08-31] VITALS: Ht 160 cm; Wt 71.0 kg
--- NOTE | 2017-08-31 16:55 | PD ---
HPI Chief Complaint: Fever Time Seen by Provider: 16:49 Travel History International Travel<30 days: No Contact w/Intl Traveler<30days: No Traveled to known affect area: No History of Present Illness HPI Patient presents with complaints of cough and fever for approximately 3-4 days. Cough is nonproductive. Denies any nausea vomiting or diarrhea. Denies sore throat. Denies general malaise. Positive sick contacts. No new rashes. No history of COPD or asthma. Non-smoker. PFSH Past Medical History Hx Anticoagulant Therapy: Yes (UNSURE) Cardiovascular Problems: Yes (HTN) High Cholesterol: Yes Coronary Artery Disease: Yes Diminished Hearing: No Hypertension: Yes Immunizations Current: Yes Thyroid Disease: Yes Influenza Vaccination: No Past Surgical History Coronary Artery Bypass Graft: Yes (2000: 3 VESSEL) Social History Alcohol Use: No Tobacco Use: No (QUIT: 1999) Substance Use: No Allergies-Medications (Allergen,Severity, Reaction): Coded Allergies: No Known Allergies (Unverified Adverse Reaction, Unknown, 08/31/17) Reported Meds & Prescriptions Reported Meds & Active Scripts Active Meclizine (Meclizine HCl) 12.5 Mg Tab 12.5 Mg PO TID PRN Reported Levothyroxine (Levothyroxine Sodium) 150 Mcg Tab 150 Mcg PO DAILY BUT MON Metoprolol Tartrate 100 Mg Tab 100 Mg PO BID Amlodipine (Amlodipine Besylate) 5 Mg Tab 5 Mg PO DAILY Enalapril (Enalapril Maleate) 20 Mg Tab 20 Mg PO BID Review of Systems General / Constitutional: Positive: Fever Eyes: No: Visual changes HENT: No: Headaches Cardiovascular: No: Chest Pain or Discomfort Respiratory: Positive: Cough, No: Shortness of Breath Gastrointestinal: No: Abdominal Pain Genitourinary: No: Dysuria Musculoskeletal: No: Pain Skin: No Rash Neurologic: No: Weakness Psychiatric: No: Depression Endocrine: No: Polydipsia Hematologic/Lymphatic: No: Easy Bruising Physical Exam Narrative GENERAL: Well-nourished, well-developed patient. SKIN: Focused skin assessment warm/dry. HEAD: Normocephalic. EYES: No scleral icterus. No injection or drainage. NECK: Supple, trachea midline. No JVD or lymphadenopathy. CARDIOVASCULAR: Regular rate and rhythm without murmurs, gallops, or rubs. RESPIRATORY: Breath sounds decreased bilaterally. No accessory muscle use. GASTROINTESTINAL: Abdomen soft, non-tender, nondistended. MUSCULOSKELETAL: No cyanosis, or edema. BACK: Nontender without obvious deformity. No CVA tenderness. Data Data Last Documented VS Vital Signs Date Time Temp Pulse Resp B/P (MAP) Pulse Ox O2 Delivery O2 Flow Rate FiO2 08/31/17 18:20 99.8 08/31/17 17:46 104 20 96 Room Air Orders Orders Complete Blood Count With Diff (08/31/17 16:49) Comprehensive Metabolic Panel (08/31/17 16:49) Influenzae A/B Antigen (08/31/17 16:49) Chest, Single Ap (08/31/17 16:49) Oximetry (08/31/17 16:49) Sodium Chloride 0.9% Flush (Ns Flush) (08/31/17 17:00) Lactic Acid (08/31/17 17:02) Blood Culture (08/31/17 17:02) Acetaminophen (Tylenol) (08/31/17 17:15) Ceftriaxone Inj (Rocephin Inj) (08/31/17 17:45) Azithromycin Inj (Zithromax Inj) (08/31/17 17:45) Labs Laboratory Tests Test 08/31/17 17:00 08/31/17 17:05 White Blood Count 6.8 TH/MM3 Red Blood Count 4.98 MIL/MM3 Hemoglobin 15.1 GM/DL Hematocrit 44.7 % Mean Corpuscular Volume 89.8 FL Mean Corpuscular Hemoglobin 30.2 PG Mean Corpuscular Hemoglobin Concent 33.7 % Red Cell Distribution Width 12.4 % Platelet Count 156 TH/MM3 Mean Platelet Volume 8.4 FL Neutrophils (%) (Auto) 72.9 % Lymphocytes (%) (Auto) 12.0 % Monocytes (%) (Auto) 10.7 % Eosinophils (%) (Auto) 0.7 % Basophils (%) (Auto) 3.7 % Neutrophils # (Auto) 5.0 TH/MM3 Lymphocytes # (Auto) 0.8 TH/MM3 Monocytes # (Auto) 0.7 TH/MM3 Eosinophils # (Auto) 0.0 TH/MM3 Basophils # (Auto) 0.3 TH/MM3 CBC Comment DIFF FINAL Differential Comment Blood Urea Nitrogen 26 MG/DL Creatinine 2.10 MG/DL Random Glucose 97 MG/DL Total Protein 8.8 GM/DL Albumin 4.1 GM/DL Calcium Level 9.3 MG/DL Alkaline Phosphatase 100 U/L Aspartate Amino Transf (AST/SGOT) 47 U/L Alanine Aminotransferase (ALT/SGPT) 25 U/L Total Bilirubin 0.6 MG/DL Sodium Level 135 MEQ/L Potassium Level 5.5 MEQ/L Chloride Level 105 MEQ/L Carbon Dioxide Level 24.9 MEQ/L Anion Gap 5 MEQ/L Estimat Glomerular Filtration Rate 30 ML/MIN Lactic Acid Level 1.3 mmol/L MDM Medical Decision Making Medical Screen Exam Complete: Yes Emergency Medical Condition: Yes Differential Diagnosis Bronchitis, cough, influenza, viral infection, bacterial pneumonia Narrative Course Assessment plan discussed the patient and son at bedside. Patient received IV antibiotics and a small amount of fluid. Taking p.o. Reports improvement. Blood pressure improved. Pulse improved. Fever responded to Tylenol. Last 72 hours Impressions Chest X-Ray 08/31/17 1649 Signed Impressions: Service Date/Time: Thursday, August 31, 2017 16:54 - CONCLUSION: No acute disease. Juan Antonio Hughes MD Diagnosis Primary Impression: Fever Qualified Codes: R50.9 - Fever, unspecified Additional Impression: Cough Patient Instructions: General Instructions Additional Instructions: Encouraged rest fluids and Tylenol, encouraged frequent handwashing, encouraged to follow-up with PCP, encouraged to return to emergency room with any onset of new symptoms. Med/Other Pt SpecificInfo: Prescription(s) given Scripts Prednisone (21) 10 mg tab Dose Pack (Prednisone (21) 10 mg tab Dose Pack) 10 Mg Pack 10 MG PO DIRECTED for Inflammation, #1 DSPK 0 Refills Prov: Denny Chambers MD 08/31/17 Benzonatate (Tessalon Perles) 100 Mg Cap 100 MG PO TID Y for COUGH for 30 Days, CAP 0 Refills Prov: Denny Chambers MD 08/31/17 Azithromycin (Zithromax) 500 Mg Tab 500 MG PO DAILY for Infection for 7 Days, #7 TAB 0 Refills Prov: Denny Chambers MD 08/31/17 Disposition: 01 DISCHARGE HOME Condition: Good Denny Chambers MD August 31, 2017 16:55
[2017-08-31] MEDS ORDERED: SODIUM CHLORIDE 0.9% FLUSH 10 ML FLUSH IVF PRN (17:00)
--- NOTE | 2017-08-31 17:12 | RADRPT ---
EXAM DATE/TIME: 08/31/2017 16:54 [facility] COMPARISON: CHEST SINGLE AP, November 01, 2016, 12:22. INDICATIONS : Cough MEDICAL HISTORY : Hypertension. Myocardial infarction. Cardiovascular disease. SURGICAL HISTORY : CABG. ENCOUNTER: Initial ACUITY: 1 day PAIN SCORE: 0/10 LOCATION: Bilateral chest FINDINGS: A single view of the chest demonstrates the lungs to be symmetrically aerated without evidence of mas s, infiltrate or effusion. Status post CABG. The cardiomediastinal contours are unremarkable. [place] us structures are intact. CONCLUSION: No acute disease. Juan Antonio Hughes MD on August 31, 2017 at 17:09 Board Certified Radiologist. This report was verified electronically.
[2017-08-31 17:13] LABS: BASOPHIL # 0.3 TH/MM3 (0-0.2); BASOPHIL % 3.7 % (0.0-2.0); EOSINOPHIL % 0.7 % (0.0-4.0); HEMATOCRIT 44.7 % (39.0-51.0); HEMOGLOBIN 15.1 GM/DL (13.0-17.0); LYMPHOCYTE # 0.8 TH/MM3 (1.0-4.8); MEAN CELL VOLUME 89.8 FL (80.0-100.0); MEAN CORPUSCULAR HEMOGLOBIN 30.2 PG (27.0-34.0); MEAN CORPUSCULAR HGB CONC 33.7 % (32.0-36.0); MEAN PLATELET VOLUME 8.4 FL (7.0-11.0); MONO % 10.7 % (0.0-8.0); MONOCYTE # 0.7 TH/MM3 (0-0.9); NEUT % 72.9 % (16.0-70.0); PLATELET COUNT 156 TH/MM3 (150-450); RED BLOOD COUNT 4.98 MIL/MM3 (4.50-5.90); RED CELL DISTRIBUTION WIDTH 12.4 % (11.6-17.2); WHITE BLOOD COUNT 6.8 TH/MM3 (4.0-11.0)
[2017-08-31] MEDS ORDERED: ACETAMINOPHEN 325 MG TAB PO ONE (17:15)
[2017-08-31 17:22] LABS: CHLORIDE 105 MEQ/L (98-107); SODIUM (NA) 135 MEQ/L (136-145)
[2017-08-31 17:25] LABS: CALCIUM 9.3 MG/DL (8.5-10.1)
[2017-08-31 17:26] LABS: ALBUMIN 4.1 GM/DL (3.4-5.0); BICARBONATE 24.9 MEQ/L (21.0-32.0); BLOOD UREA NITROGEN 26 MG/DL (7-18); GLUCOSE,RANDOM 97 MG/DL (74-106)
[2017-08-31 17:29] LABS: ALT (GPT) 25 U/L (12-78); AST (GOT) 47 U/L (15-37); GLOMERULAR FILTRATION RATE 30 ML/MIN (>89)
[2017-08-31 17:31] LABS: TOTAL BILIRUBIN ADULT 0.6 MG/DL (0.2-1.0); TOTAL PROTEIN 8.8 GM/DL (6.4-8.2)
[2017-08-31 17:32] LABS: ALKALINE PHOSPHATASE 100 U/L (45-117)
[2017-08-31] MEDS ORDERED: AZITHROMYCIN INJ 250 MG in SODIUM CHLOR 0.9% 250 ML INJ 250 ML IV SCH (17:45)
[2017-08-31] MEDS ORDERED: cefTRIAXone INJ 1,000 MG in SODIUM CHLORIDE 0.9% INJ 100 ML IV ONE (17:45)
[2017-08-31] MEDS ORDERED: PRED10PA PO (19:00)
[2017-08-31] MEDS ORDERED: ZITH500T PO (19:00)
[2017-08-31] MEDS ORDERED: BENZ100 PO (19:00)
== END 2017-08-31 20:02 | disposition home or self-care (01) ==
LOC: PHED 16:01
DX: R50.9 Fever, unspecified (principal); R05 Cough; I10 Essential (primary) hypertension; E78.00 Pure hypercholesterolemia, unspecified
CPT/HCPCS: 71045; 80053; 83605; 85025; 87040; 87804; 96365; 96368; 99284; J0456; J0696; J7050

== ENCOUNTER 2018-06-04 16:32 | Inpatient (IN) ==
[2018-06-04] MEDS ORDERED: Sod Chloride 0.9% Inj 1,000 ML IV.SIG SCH (18:00)
[2018-06-04 18:31] LABS: Baso # (Auto) 0.4 th/mm3 (0.0-0.2); Baso % (Auto) 2.7 % (0.0-2.0); Eos % (Auto) 0.1 % (0.0-4.0); Hematocrit 41.9 % (39.0-51.0); Hemoglobin 14.2 gm/dL (13.0-17.0); Lymph # (Auto) 0.6 th/mm3 (1.0-4.8); Lymph % (Auto) 4.4 % (9.0-44.0); Mean Corpuscular HGB Conc 33.8 % (32.0-36.0); Mean Corpuscular Hemoglobin 30.6 pg (27.0-34.0); Mean Corpuscular Volume 90.6 fL (80.0-100.0); Mean Platelet Volume 7.8 fL (7.0-11.0); Mono # (Auto) 0.5 th/mm3 (0.0-0.9); Mono % (Auto) 3.4 % (0.0-8.0); Neut # (Auto) 12.5 th/mm3 (1.8-7.7); Neut % (Auto) 89.4 % (16.0-70.0); Platelet Count 296 th/mm3 (150-450); Red Blood Count 4.63 mil/mm3 (4.50-5.90); Red Cell Distribution Width 12.6 % (11.6-17.2)
[2018-06-04 18:38] LABS: Chloride 102 meq/L (98-107); Sodium 133 meq/L (136-145)
[2018-06-04 18:41] LABS: Calcium 9.2 mg/dL (8.5-10.1)
[2018-06-04 18:42] LABS: Albumin 3.5 g/dL (3.4-5.0); Anion Gap 10 meq/L (5-15); Blood Urea Nitrogen 46 mg/dL (7-18); Carbon Dioxide 20.8 meq/L (21.0-32.0); Glucose,Random 106 mg/dL (74-106); Lipase 123 U/L (73-393)
[2018-06-04 18:43] LABS: Activated Partial Thrombo Time 26.1 sec (23.4-31.7); INR 1.1 Ratio; Prothrombin Time 11.2 sec (9.8-11.6)
[2018-06-04 18:45] LABS: Alanine Aminotransferase 14 U/L (12-78); Aspartate Aminotransferase 17 U/L (15-37); Glomerular Filtration Rate 27 mL/min (>89)
[2018-06-04 18:46] LABS: Total Protein 7.2 g/dL (6.4-8.2)
[2018-06-04 18:48] LABS: Alkaline Phosphatase 83 U/L (45-117)
--- NOTE | 2018-06-04 18:56 | ED ---
HPI General Chief complaint: Weakness Stated complaint: Shaking x today/not moving well Time Seen by Provider: 06/04/18 17:51 Source: patient Mode of arrival: ambulatory Limitations: no limitations History of Present Illness HPI narrative: 88yo M with PMH of CAD s/p CABG, hypothyroidism, HTN, dementia was brought in by today because he became more lethargic and increased generalized weakness this afternoon. Pt has been refusing to eat for a few days. Said she bought him to his primary today and was prescribed medications but he has not gotten it. Pt was seen 05/30/18 for abdominal pain and CT a/p showed gallstone and mild CBD dilation of 1.5cm. Distension of stomach. This was discussed with Dr. Hirsch who recommended outpatient follow up but they have not gone yet. Related Data Home Medications Medication Instructions Recorded Confirmed amlodipine 5 mg PO DAILY 05/30/18 06/04/18 enalapril maleate 20 mg PO DAILY 05/30/18 06/04/18 levothyroxine 100 mcg PO DAILY 05/30/18 06/04/18 metoprolol succinate 25 mg PO DAILY 05/30/18 06/04/18 Previous Rx's Medication Instructions Recorded docusate sodium [Colace] 100 mg PO DAILY #20 cap 05/30/18 Allergies Allergy/AdvReac Type Severity Reaction Status Date / Time No Known Allergies Allergy Verified 06/04/18 16:48 Review of Systems ROS: all other systems reviewed are negative [facility] Family History Family History Brother Coronary artery disease Social History Social History Substance History: No History of Abuse Second Hand Smoke Exposure: No Smoking Status: Former smoker Tobacco Type: Cigarettes Smoking End Date: 1998 How Often Do You Have a Drink Containing Alcohol: Never Recent Travel in [facility] within the Last 8 Weeks: No Recent Out of Country Travel within the Last 8 Weeks: No Immunization History Tetanus Immunization: <5 Years Exam Narrative Exam Narrative: GENERAL: 88yo M in mild distress. SKIN: Focused skin assessment warm/dry. HEAD: Atraumatic. Normocephalic. EYES: Pupils equal and round. No scleral icterus. No injection or drainage. ENT: No nasal bleeding or discharge. Mucous membranes pink and moist. NECK: Trachea midline. No JVD. CARDIOVASCULAR: Tachycardic. No murmur appreciated. RESPIRATORY: No accessory muscle use. Clear to auscultation. Breath sounds equal bilaterally. GASTROINTESTINAL: Abdomen soft, +TTP epigastric region. No rebound tenderness. MUSCULOSKELETAL: No obvious deformities. No clubbing. No cyanosis. No edema. NEUROLOGICAL: Arousable and opens eyes to voice. Pt nods to same sensation in all extremity but wont uncross his legs or lift his arms. Course Initial Documented Vital Signs Temperature 98.2 F 06/04/18 16:48 Pulse Rate 125 H 06/04/18 16:48 Respiratory Rate 20 06/04/18 16:48 Blood Pressure 130/69 06/04/18 16:48 Pulse Oximetry 97 06/04/18 16:48 Last Documented Vital Signs Temperature 98.4 F 06/05/18 11:30 Pulse Rate 72 06/05/18 17:00 Respiratory Rate 16 06/05/18 17:00 Blood Pressure 108/50 L 06/05/18 16:49 Pulse Oximetry 96 06/05/18 17:00 Critical Care Time Critical Care Time: Yes Total Critical Care Time: 35 Attestation: Aggregate critical care time was 35 minutes. Time to perform other separately billable procedures was not included in the critical care time. My time did not include minutes spent treating any other patients simultaneously or on activities that did not directly contribute to the patient's treatment. The services I provided to this patient were to treat and/or prevent clinically significant deterioration that could result in: cardiovascular collapse or . I provided critical care services requiring my management, as noted below: Chart data review, documentation time, medication orders and management, vital sign assessments/reviewing monitor data, ordering and reviewing lab tests, ordering and interpreting/reviewing x-rays and diagnostic studies, care of the patient and discussion of the patient with the admitting physicians. Sign Out Sign Out Data: Patient Sign Out occurred on 06/04/18 at 19:19. Patient's care was discussed, and care was transferred from Kaye Harry DO to Melinda Ni MD. Sign Out Comment: 88yo M with dementia, hypothyroid here with generalized weakness, lethargy. Sepsis work up initiated, pending UA, CT brain, CT abd/ pelvis and rest of lab. Pt given IVF NS x1. Last updated by Kaye Harry DO at 06/04/18 19:05 Post-Handoff Eval: Case is signed out to me at [address] Harry, please see previous notes for further details. CT of the abdomen returned showing small amount of pneumoperitoneum, concerning for possible underlying perforation. IV antibiotics were initiated in the ER. Case was discussed with Dr. Currie who would like the patient to be transferred to the main hospital for admission to medicine. Case was then discussed with Dr. Ya for admission. Medical Decision Making MDM Narrative Medical decision making narrative: 88yo M with hypothyroid here with increase lethargy since this afternoon. Pt is tachycardic and hypotensive and said he was shaky and may have had chills. Sepsis work up initiated and pt given IVF NS. BUN/creatinine elevated at 46/2.30 which is increased from 32/1.90 on . Glucose 130. Lactic acid mildly elevated at 2.1. Pt seen at end of shift and sign out to next team. Medical Screen Exam Complete: Yes Emergency Medical Condition: Yes Differential Diagnosis Differential Diagnosis: Urosepsis vs. dehydration vs. dementia vs. ICH vs. pneumonia vs. hypothyroid Lab Data Result diagrams: 06/05/18 16:21 06/05/18 16:21 Lab Results 06/04/18 06/04/18 06/04/18 Range/Units 17:49 18:20 18:20 CBC w Diff Auto diff final WBC 14.0 H (4.0-11.0) th/mm3 RBC 4.63 (4.50-5.90) mil/mm3 Hgb 14.2 (13.0-17.0) gm/dL Hct 41.9 (39.0-51.0) % MCV 90.6 (80.0-100.0) fL MCH 30.6 (27.0-34.0) pg MCHC 33.8 (32.0-36.0) % RDW 12.6 (11.6-17.2) % Plt Count 296 D (150-450) th/mm3 MPV 7.8 (7.0-11.0) fL Neut % (Auto) 89.4 H (16.0-70.0) % Lymph % (Auto) 4.4 L (9.0-44.0) % [place] % (Auto) 3.4 (0.0-8.0) % Eos % (Auto) 0.1 (0.0-4.0) % Baso % (Auto) 2.7 H (0.0-2.0) % Neut # (Auto) 12.5 H (1.8-7.7) th/mm3 Lymph # (Auto) 0.6 L (1.0-4.8) th/mm3 [place] # (Auto) 0.5 (0.0-0.9) th/mm3 Eos # (Auto) 0.0 (0.0-0.4) th/mm3 Baso # (Auto) 0.4 H (0.0-0.2) th/mm3 WBC Differential . Differential Comment . PT 11.2 (9.8-11.6) sec INR 1.1 Ratio APTT 26.1 (23.4-31.7) sec Puncture Site Patient Temperature O2 Saturation (90-100) % ABG pH (7.380-7.420) ABG pCO2 (38-42) mmHg ABG pO2 (61-120) mmHG ABG HCO3 (22-26) mmol/L ABG O2 Content (12.0-20.0) Vol % ABG Base Excess (-2-2) mmol/L ABG Methemoglobin (0-2) % Hemoglobin (12.0-16.0) G/DL Carboxyhemoglobin (0-4) % O2 Delivery Device Critical Value Sodium (136-145) meq/L Potassium (3.5-5.1) meq/L Chloride (98-107) meq/L Carbon Dioxide (21.0-32.0) meq/L Anion Gap (5-15) meq/L BUN (7-18) mg/dL Creatinine (0.60-1.30) mg/dL Estimated GFR (>89) mL/min POC Glucose 130 (68-110) mg/dl Random Glucose (74-106) mg/dL Lactic Acid (0.4-2.0) mmol/L Calcium (8.5-10.1) mg/dL Magnesium (1.5-2.5) mg/dL Total Bilirubin (0.2-1.0) mg/dL AST (15-37) U/L ALT (12-78) U/L Alkaline Phosphatase (45-117) U/L Total Protein (6.4-8.2) g/dL Albumin (3.4-5.0) g/dL Lipase (73-393) U/L TSH (0.358-3.740) uIU/mL Free T4 (0.76-1.46) ng/dL Free T3 (2.18-3.98) pg/mL Urine Color (Yellw/Straw) Urine Clarity (Clear) Urine pH (5.0-8.5) Ur Specific [place] (1.002-1.035) Urine Protein (Neg-Trace) mg/dL Urine Glucose (UA) (Negative) mg/dL Urine Ketones (Negative) mg/dL Urine Occult Blood (Negative) Urine Nitrate (Negative) Urine Bilirubin (Negative) Urine Urobilinogen (Less than 2) mg/dL Ur Leukocyte Esterase (Negative) Urine RBC (0-3) /hpf Urine WBC (0-5) /hpf Ur Squamous Epith Cells (0-5) /hpf Micro UA Comment Ur Microscopic Review Urine Culture Comments 06/04/18 06/04/18 06/04/18 Range/Units 18:20 18:20 21:25 CBC w Diff WBC (4.0-11.0) th/mm3 RBC (4.50-5.90) mil/mm3 Hgb (13.0-17.0) gm/dL Hct (39.0-51.0) % MCV (80.0-100.0) fL MCH (27.0-34.0) pg MCHC (32.0-36.0) % RDW (11.6-17.2) % Plt Count (150-450) th/mm3 MPV (7.0-11.0) fL Neut % (Auto) (16.0-70.0) % Lymph % (Auto) (9.0-44.0) % [place] % (Auto) (0.0-8.0) % Eos % (Auto) (0.0-4.0) % Baso % (Auto) (0.0-2.0) % Neut # (Auto) (1.8-7.7) th/mm3 Lymph # (Auto) (1.0-4.8) th/mm3 [place] # (Auto) (0.0-0.9) th/mm3 Eos # (Auto) (0.0-0.4) th/mm3 Baso # (Auto) (0.0-0.2) th/mm3 WBC Differential Differential Comment PT (9.8-11.6) sec INR Ratio APTT (23.4-31.7) sec Puncture Site Patient Temperature O2 Saturation (90-100) % ABG pH (7.380-7.420) ABG pCO2 (38-42) mmHg ABG pO2 (61-120) mmHG ABG HCO3 (22-26) mmol/L ABG O2 Content (12.0-20.0) Vol % ABG Base Excess (-2-2) mmol/L ABG Methemoglobin (0-2) % Hemoglobin (12.0-16.0) G/DL Carboxyhemoglobin (0-4) % O2 Delivery Device Critical Value Sodium 133 L (136-145) meq/L Potassium 4.0 (3.5-5.1) meq/L Chloride 102 (98-107) meq/L Carbon Dioxide 20.8 L (21.0-32.0) meq/L Anion Gap 10 (5-15) meq/L BUN 46 H (7-18) mg/dL Creatinine 2.30 H (0.60-1.30) mg/dL Estimated GFR 27 L (>89) mL/min POC Glucose (68-110) mg/dl Random Glucose 106 (74-106) mg/dL Lactic Acid 2.1 H 1.4 (0.4-2.0) mmol/L Calcium 9.2 (8.5-10.1) mg/dL Magnesium (1.5-2.5) mg/dL Total Bilirubin 0.8 (0.2-1.0) mg/dL AST 17 (15-37) U/L ALT 14 (12-78) U/L Alkaline Phosphatase 83 (45-117) U/L Total Protein 7.2 (6.4-8.2) g/dL Albumin 3.5 (3.4-5.0) g/dL Lipase 123 (73-393) U/L TSH 14.500 H (0.358-3.740) uIU/mL Free T4 (0.76-1.46) ng/dL Free T3 (2.18-3.98) pg/mL Urine Color (Yellw/Straw) Urine Clarity (Clear) Urine pH (5.0-8.5) Ur Specific [place] (1.002-1.035) Urine Protein (Neg-Trace) mg/dL Urine Glucose (UA) (Negative) mg/dL Urine Ketones (Negative) mg/dL Urine Occult Blood (Negative) Urine Nitrate (Negative) Urine Bilirubin (Negative) Urine Urobilinogen (Less than 2) mg/dL Ur Leukocyte Esterase (Negative) Urine RBC (0-3) /hpf Urine WBC (0-5) /hpf Ur Squamous Epith Cells (0-5) /hpf Micro UA Comment Ur Microscopic Review Urine Culture Comments 06/04/18 06/05/18 06/05/18 Range/Units 22:45 07:27 07:27 CBC w Diff WBC 15.0 H (4.0-11.0) th/mm3 RBC 4.16 L (4.50-5.90) mil/mm3 Hgb 12.8 L (13.0-17.0) gm/dL Hct 38.8 L (39.0-51.0) % MCV 93.3 (80.0-100.0) fL MCH 30.8 (27.0-34.0) pg MCHC 33.0 (32.0-36.0) % RDW 13.4 (11.6-17.2) % Plt Count 223 (150-450) th/mm3 MPV 8.0 (7.0-11.0) fL Neut % (Auto) 82.8 H (16.0-70.0) % Lymph % (Auto) 9.0 (9.0-44.0) % [place] % (Auto) 7.6 (0.0-8.0) % Eos % (Auto) 0.1 (0.0-4.0) % Baso % (Auto) 0.5 (0.0-2.0) % Neut # (Auto) 12.4 H (1.8-7.7) th/mm3 Lymph # (Auto) 1.3 (1.0-4.8) th/mm3 [place] # (Auto) 1.1 H (0.0-0.9) th/mm3 Eos # (Auto) 0.0 (0.0-0.4) th/mm3 Baso # (Auto) 0.1 (0.0-0.2) th/mm3 WBC Differential . Differential Comment Auto diff final PT (9.8-11.6) sec INR Ratio APTT (23.4-31.7) sec Puncture Site Patient Temperature O2 Saturation (90-100) % ABG pH (7.380-7.420) ABG pCO2 (38-42) mmHg ABG pO2 (61-120) mmHG ABG HCO3 (22-26) mmol/L ABG O2 Content (12.0-20.0) Vol % ABG Base Excess (-2-2) mmol/L ABG Methemoglobin (0-2) % Hemoglobin (12.0-16.0) G/DL Carboxyhemoglobin (0-4) % O2 Delivery Device Critical Value Sodium 139 (136-145) meq/L Potassium 3.9 (3.5-5.1) meq/L Chloride 106 (98-107) meq/L Carbon Dioxide 25.5 (21.0-32.0) meq/L Anion Gap 8 (5-15) meq/L BUN 46 H (7-18) mg/dL Creatinine 2.31 H (0.60-1.30) mg/dL Estimated GFR 27 L (>89) mL/min POC Glucose (68-110) mg/dl Random Glucose 95 (74-106) mg/dL Lactic Acid (0.4-2.0) mmol/L Calcium 8.8 (8.5-10.1) mg/dL Magnesium (1.5-2.5) mg/dL Total Bilirubin 0.7 (0.2-1.0) mg/dL AST 24 (15-37) U/L ALT 16 (12-78) U/L Alkaline Phosphatase 64 (45-117) U/L Total Protein 6.1 L D (6.4-8.2) g/dL Albumin 2.7 L D (3.4-5.0) g/dL Lipase (73-393) U/L TSH (0.358-3.740) uIU/mL Free T4 (0.76-1.46) ng/dL Free T3 (2.18-3.98) pg/mL Urine Color Yellow (Yellw/Straw) Urine Clarity Clear (Clear) Urine pH 5.5 (5.0-8.5) Ur Specific [place] Greater/equal 1.030 (1.002-1.035) Urine Protein Trace (Neg-Trace) mg/dL Urine Glucose (UA) Negative (Negative) mg/dL Urine Ketones Trace H (Negative) mg/dL Urine Occult Blood Trace (Negative) Urine Nitrate Negative (Negative) Urine Bilirubin Negative (Negative) Urine Urobilinogen 0.2 (Less than 2) mg/dL Ur Leukocyte Esterase Negative (Negative) Urine RBC 0-3 (0-3) /hpf Urine WBC 0-5 (0-5) /hpf Ur Squamous Epith Cells 6-10 H (0-5) /hpf Micro UA Comment Culture not ind Ur Microscopic Review Microscopic reviewed Urine Culture Comments Culture not ind 06/05/18 06/05/18 06/05/18 Range/Units 07:27 07:38 12:36 CBC w Diff WBC (4.0-11.0) th/mm3 RBC (4.50-5.90) mil/mm3 Hgb (13.0-17.0) gm/dL Hct (39.0-51.0) % MCV (80.0-100.0) fL MCH (27.0-34.0) pg MCHC (32.0-36.0) % RDW (11.6-17.2) % Plt Count (150-450) th/mm3 MPV (7.0-11.0) fL Neut % (Auto) (16.0-70.0) % Lymph % (Auto) (9.0-44.0) % [place] % (Auto) (0.0-8.0) % Eos % (Auto) (0.0-4.0) % Baso % (Auto) (0.0-2.0) % Neut # (Auto) (1.8-7.7) th/mm3 Lymph # (Auto) (1.0-4.8) th/mm3 [place] # (Auto) (0.0-0.9) th/mm3 Eos # (Auto) (0.0-0.4) th/mm3 Baso # (Auto) (0.0-0.2) th/mm3 WBC Differential Differential Comment PT (9.8-11.6) sec INR Ratio APTT (23.4-31.7) sec Puncture Site Patient Temperature O2 Saturation (90-100) % ABG pH (7.380-7.420) ABG pCO2 (38-42) mmHg ABG pO2 (61-120) mmHG ABG HCO3 (22-26) mmol/L ABG O2 Content (12.0-20.0) Vol % ABG Base Excess (-2-2) mmol/L ABG Methemoglobin (0-2) % Hemoglobin (12.0-16.0) G/DL Carboxyhemoglobin (0-4) % O2 Delivery Device Critical Value Sodium (136-145) meq/L Potassium (3.5-5.1) meq/L Chloride (98-107) meq/L Carbon Dioxide (21.0-32.0) meq/L Anion Gap (5-15) meq/L BUN (7-18) mg/dL Creatinine (0.60-1.30) mg/dL Estimated GFR (>89) mL/min POC Glucose 109 103 (68-110) mg/dl Random Glucose (74-106) mg/dL Lactic Acid (0.4-2.0) mmol/L Calcium (8.5-10.1) mg/dL Magnesium (1.5-2.5) mg/dL Total Bilirubin (0.2-1.0) mg/dL AST (15-37) U/L ALT (12-78) U/L Alkaline Phosphatase (45-117) U/L Total Protein (6.4-8.2) g/dL Albumin (3.4-5.0) g/dL Lipase (73-393) U/L TSH (0.358-3.740) uIU/mL Free T4 1.35 (0.76-1.46) ng/dL Free T3 1.01 L (2.18-3.98) pg/mL Urine Color (Yellw/Straw) Urine Clarity (Clear) Urine pH (5.0-8.5) Ur Specific [place] (1.002-1.035) Urine Protein (Neg-Trace) mg/dL Urine Glucose (UA) (Negative) mg/dL Urine Ketones (Negative) mg/dL Urine Occult Blood (Negative) Urine Nitrate (Negative) Urine Bilirubin (Negative) Urine Urobilinogen (Less than 2) mg/dL Ur Leukocyte Esterase (Negative) Urine RBC (0-3) /hpf Urine WBC (0-5) /hpf Ur Squamous Epith Cells (0-5) /hpf Micro UA Comment Ur Microscopic Review Urine Culture Comments 06/05/18 06/05/1819 Range/Units 13:37 16:21 16:21 CBC w Diff WBC 12.9 H (4.0-11.0) th/mm3 RBC 4.21 L (4.50-5.90) mil/mm3 Hgb 13.1 (13.0-17.0) gm/dL Hct 39.8 (39.0-51.0) % MCV 94.6 (80.0-100.0) fL MCH 31.1 (27.0-34.0) pg MCHC 32.9 (32.0-36.0) % RDW 13.9 (11.6-17.2) % Plt Count 210 (150-450) th/mm3 MPV 8.3 (7.0-11.0) fL Neut % (Auto) 78.3 H (16.0-70.0) % Lymph % (Auto) 13.6 (9.0-44.0) % [place] % (Auto) 7.2 (0.0-8.0) % Eos % (Auto) 0.5 (0.0-4.0) % Baso % (Auto) 0.4 (0.0-2.0) % Neut # (Auto) 10.1 H (1.8-7.7) th/mm3 Lymph # (Auto) 1.8 (1.0-4.8) th/mm3 [place] # (Auto) 0.9 (0.0-0.9) th/mm3 Eos # (Auto) 0.1 (0.0-0.4) th/mm3 Baso # (Auto) 0.1 (0.0-0.2) th/mm3 WBC Differential . Differential Comment Auto diff final PT (9.8-11.6) sec INR Ratio APTT (23.4-31.7) sec Puncture Site Patient Temperature O2 Saturation (90-100) % ABG pH (7.380-7.420) ABG pCO2 (38-42) mmHg ABG pO2 (61-120) mmHG ABG HCO3 (22-26) mmol/L ABG O2 Content (12.0-20.0) Vol % ABG Base Excess (-2-2) mmol/L ABG Methemoglobin (0-2) % Hemoglobin (12.0-16.0) G/DL Carboxyhemoglobin (0-4) % O2 Delivery Device Critical Value Sodium 141 (136-145) meq/L Potassium 3.8 (3.5-5.1) meq/L Chloride 109 H (98-107) meq/L Carbon Dioxide 23.5 (21.0-32.0) meq/L Anion Gap 9 (5-15) meq/L BUN 40 H (7-18) mg/dL Creatinine 2.10 H (0.60-1.30) mg/dL Estimated GFR 30 L (>89) mL/min POC Glucose (68-110) mg/dl Random Glucose 81 (74-106) mg/dL Lactic Acid 1.6 (0.4-2.0) mmol/L Calcium 8.1 L (8.5-10.1) mg/dL Magnesium 2.1 (1.5-2.5) mg/dL Total Bilirubin (0.2-1.0) mg/dL AST (15-37) U/L ALT (12-78) U/L Alkaline Phosphatase (45-117) U/L Total Protein (6.4-8.2) g/dL Albumin (3.4-5.0) g/dL Lipase (73-393) U/L TSH (0.358-3.740) uIU/mL Free T4 (0.76-1.46) ng/dL Free T3 (2.18-3.98) pg/mL Urine Color (Yellw/Straw) Urine Clarity (Clear) Urine pH (5.0-8.5) Ur Specific [place] (1.002-1.035) Urine Protein (Neg-Trace) mg/dL Urine Glucose (UA) (Negative) mg/dL Urine Ketones (Negative) mg/dL Urine Occult Blood (Negative) Urine Nitrate (Negative) Urine Bilirubin (Negative) Urine Urobilinogen (Less than 2) mg/dL Ur Leukocyte Esterase (Negative) Urine RBC (0-3) /hpf Urine WBC (0-5) /hpf Ur Squamous Epith Cells (0-5) /hpf Micro UA Comment Ur Microscopic Review Urine Culture Comments 06/05/18 Range/Units 18:50 CBC w Diff WBC (4.0-11.0) th/mm3 RBC (4.50-5.90) mil/mm3 Hgb (13.0-17.0) gm/dL Hct (39.0-51.0) % MCV (80.0-100.0) fL MCH (27.0-34.0) pg MCHC (32.0-36.0) % RDW (11.6-17.2) % Plt Count (150-450) th/mm3 MPV (7.0-11.0) fL Neut % (Auto) (16.0-70.0) % Lymph % (Auto) (9.0-44.0) % [place] % (Auto) (0.0-8.0) % Eos % (Auto) (0.0-4.0) % Baso % (Auto) (0.0-2.0) % Neut # (Auto) (1.8-7.7) th/mm3 Lymph # (Auto) (1.0-4.8) th/mm3 [place] # (Auto) (0.0-0.9) th/mm3 Eos # (Auto) (0.0-0.4) th/mm3 Baso # (Auto) (0.0-0.2) th/mm3 WBC Differential Differential Comment PT (9.8-11.6) sec INR Ratio APTT (23.4-31.7) sec Puncture Site Art line Patient Temperature 98.6 O2 Saturation 97 (90-100) % ABG pH 7.30 L (7.380-7.420) ABG pCO2 35 L (38-42) mmHg ABG pO2 196 H (61-120) mmHG ABG HCO3 17 L (22-26) mmol/L ABG O2 Content 18.0 (12.0-20.0) Vol % ABG Base Excess -8.3 L (-2-2) mmol/L ABG Methemoglobin 1.4 (0-2) % Hemoglobin 12.9 (12.0-16.0) G/DL Carboxyhemoglobin 0.6 (0-4) % O2 Delivery Device Ventilator Critical Value No Sodium (136-145) meq/L Potassium (3.5-5.1) meq/L Chloride (98-107) meq/L Carbon Dioxide (21.0-32.0) meq/L Anion Gap (5-15) meq/L BUN (7-18) mg/dL Creatinine (0.60-1.30) mg/dL Estimated GFR (>89) mL/min POC Glucose (68-110) mg/dl Random Glucose (74-106) mg/dL Lactic Acid (0.4-2.0) mmol/L Calcium (8.5-10.1) mg/dL Magnesium (1.5-2.5) mg/dL Total Bilirubin (0.2-1.0) mg/dL AST (15-37) U/L ALT (12-78) U/L Alkaline Phosphatase (45-117) U/L Total Protein (6.4-8.2) g/dL Albumin (3.4-5.0) g/dL Lipase (73-393) U/L TSH (0.358-3.740) uIU/mL Free T4 (0.76-1.46) ng/dL Free T3 (2.18-3.98) pg/mL Urine Color (Yellw/Straw) Urine Clarity (Clear) Urine pH (5.0-8.5) Ur Specific [place] (1.002-1.035) Urine Protein (Neg-Trace) mg/dL Urine Glucose (UA) (Negative) mg/dL Urine Ketones (Negative) mg/dL Urine Occult Blood (Negative) Urine Nitrate (Negative) Urine Bilirubin (Negative) Urine Urobilinogen (Less than 2) mg/dL Ur Leukocyte Esterase (Negative) Urine RBC (0-3) /hpf Urine WBC (0-5) /hpf Ur Squamous Epith Cells (0-5) /hpf Micro UA Comment Ur Microscopic Review Urine Culture Comments Imaging Data Radiologist's impression: Head CT 06/04/18 18:11 CONCLUSION: 1. No acute intracranial abnormality. . . Abdomen/Pelvis CT 06/04/18 18:21 CONCLUSION: 1. Very small volume pneumoperitoneum as detailed above. The etiology is unclear. I see no inflammatory change involving the bowel structures or stomach to suggest a source. 2. Cholelithiasis without biliary dilatation. 3. Trace amount of fluid adjacent to the anterior margin of the liver. 4. Bilateral inguinal hernias containing fat. Chest X-Ray 06/04/18 18:21 CONCLUSION: No acute cardiopulmonary disease. Discharge Plan Discharge Disposition Patient Disposition: ED Admit(ED Internal Use Only) Discharge Condition Condition: Stable Discharge Order Discharge Orders: ED Use Only Admit Order (Routine); Ordered 06/04/18 Ordered By: Melinda Ni Discharge Details Anticipated Discharge Date: 06/05/18 Diagnosis: Pneumoperitoneum Physicians Team ED Provider: Melinda Ni Primary Care Provider: Manjinder Baldwin Attending Provider: Scar Ramirez Other Providers: Christoph Currie ; Adal Pitts V ; Mala Medeiros ; Juan Antonio Smith Status ED Status: Left Department Discharge Information Discharge Date/Time: 06/05/18 01:15
--- NOTE | 2018-06-04 19:01 | XR ---
EXAM DATE: 06/04/2018 6:30 PM EST AGE/SEX: 88 years / Male INDICATIONS: Weakness, chest pain. CLINICAL DATA: This is the patient's initial encounter. Patient reports that signs and symptoms have been present for 1 day and indicates a pain score of 5/10. MEDICAL/SURGICAL HISTORY: Cardiovascular disease. Myocardial infarction. Hypertension. CABG. COMPARISON: [facility], CHEST SINGLE AP, 08/31/2017. . FINDINGS: A single AP view of the chest demonstrates the lungs to be symmetrically aerated without evidence of mass, infiltrate or effusion. Mild chronic interstitial changes at the bases are unchanged from prior exam. The cardiomediastinal contours are unremarkable. Median sternotomy wires and mediastinal vascu lar clips. CONCLUSION: No acute cardiopulmonary disease. Electronically signed by: Blake Brewster MD Board Certified Radiologist 06/04/2018 7:00 PM EST
--- NOTE | 2018-06-04 19:17 | CT ---
EXAM DATE: 06/04/2018 7:08 PM EST AGE/SEX: 88 years / Male INDICATIONS: Altered mental status. CLINICAL DATA: This is the patient's initial encounter. Patient reports that signs and symptoms have been present for 1 day and indicates a pain score of Nonresponsive. MEDICAL/SURGICAL HISTORY: Dementia. Hypertension. Cardiovascular disease. CABG. RADIATION DOSE: 40.46 CTDI (mGy) COMPARISON: No prior exams available for comparison. TECHNIQUE: CT of the head without contrast. Using automated exposure control and adjustment of the mA and/or kV according to patient size, radiation dose was kept as low as reasonably achievable to ob tain optimal diagnostic quality images. DICOM format image data is available electronically for revi ew and comparison. FINDINGS: Cerebrum: Moderate diffuse cerebral atrophy. The ventricles are normal for degree of atrophy. No chris dence of midline shift, mass lesion, hemorrhage or acute infarction. No extraaxial fluid collections are seen. Posterior Fossa: The cerebellum and brainstem are intact. The 4th ventricle is midline. The cerebe llopontine angle is unremarkable. Extracranial: The visualized portion of the orbits is intact. Skull: The calvaria is intact. No evidence of skull fracture. CONCLUSION: 1. No acute intracranial abnormality. . . Electronically signed by: Jack Burt MD Board Certified Radiologist 06/04/2018 7:15 PM EST
--- NOTE | 2018-06-04 19:26 | CT ---
EXAM DATE: 06/04/2018 7:10 PM EST AGE/SEX: 88 years / Male INDICATIONS: Abdominal pain. CLINICAL DATA: This is the patient's initial encounter. Patient reports that signs and symptoms have been present for 1 day and indicates a pain score of Nonresponsive. MEDICAL/SURGICAL HISTORY: Dementia. Hypertension. Cardiovascular disease. CABG. RADIATION DOSE: 12.56 CTDI (mGy) COMPARISON: [facility], CT ABDOMEN & PELVIS W/O CONTRAST, 05/30/2018. . TECHNIQUE: Multiple contiguous axial images were obtained through the abdomen. Images were obtained using multiple row detector helical technique. Using automated exposure control and adjustment of the mA and/or kV according to patient size, radiation dose was kept as low as reasonably achievable to o btain optimal diagnostic quality images. DICOM format image data is available electronically for rev iew and comparison. FINDINGS: The examination is degraded somewhat by breathing motion artifact. Lower Lungs: The visualized lower lungs are clear. Liver: The liver has a homogeneous density without space-occupying lesion. There is no dilation of th e biliary tree. Small calcified gallstones within an otherwise normal-appearing gallbladder. Trace am ount of ascitic fluid adjacent to the anterior margin of the liver. Spleen: Homogeneous density without enlargement. Pancreas: Unremarkable without mass or calcification. Kidneys: Normal in size and shape. No evidence of mass or hydronephrosis. Adrenal Glands: Unremarkable. Aorta: Diffuse calcified atheromatous plaque throughout the abdominal aorta and inflow vessels. 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 No aneurysmal change. No periaort ic fluid collections.. Bowel/Mesentery: Small volume pneumoperitoneum is observed. 4 tiny bubbles of air are seen. 3 are tr acking along the falciform ligament and the fourth is directly adjacent to the anterior wall of the g astric body. No large volume or moderate volume pneumoperitoneum is observed. The etiology to BE pneu moperitoneum is uncertain. I see no inflammatory change. I see no other pneumoperitoneum to suggest a location for the source. The bowel structures show normal wall thickness. The mesentery is clean. Th e appendix is normal by CT criteria. There is no free air. No dilated bowel loops. Stomach is unremar kable.. Abdominal Wall: Intact. Retroperitoneum: No evidence of adenopathy in the retrocrural, para-aortic, or deep pelvic regions. Bladder: Contours are smooth. Reproductive Organs: No abnormal masses or calcifications seen. Inguinal: Bilateral inguinal hernias containing fat. The inguinal region is unremarkable without evid ence of adenopathy. Bony Structures: Unremarkable. CONCLUSION: 1. Very small volume pneumoperitoneum as detailed above. The etiology is unclear. I see no inflammat ory change involving the bowel structures or stomach to suggest a source. 2. Cholelithiasis without biliary dilatation. 3. Trace amount of fluid adjacent to the anterior margin of the liver. 4. Bilateral inguinal hernias containing fat. Electronically signed by: Blake Brewster MD Board Certified Radiologist 06/04/2018 7:25 PM EST
[2018-06-04] MEDS ORDERED: Piperacil/Tazo 3.375 GM Premix 3.375 GM/50 ML PIGGYBACK IV.SIG ONE (19:38)
--- NOTE | 2018-06-04 19:45 | ECG ---
Date Performed: 06/04/2018 Time Performed: 19:11:20 PTAGE: 88 years EKG: SINUS TACHYCARDIA MARKED LEFT AXIS DEVIATION PATTERN CONSISTENT WITH PULMONARY DISEASE SEPT AL MYOCARDIAL INFARCTION ABNORMAL ECG Since PREVIOUS TRACING , no significant change noted PREVIOUS TRACIN05/30/2018 16.33 DOCTOR: Deja Bills Interpretating Date/Time 06/04/2018 19:45:21
[2018-06-04 22:52] LABS: Bilirubin,Urine Negative (Negative); Clarity,Urine Clear (Clear); Color,Urine Yellow (Yellw/Straw); Glucose,Urine (UA) Negative (Negative); Leukocyte Esterase,Urine Negative (Negative); Nitrite,Urine Negative (Negative); PH,Urine 5.5 (5.0-8.5); Specific Gravity,Urine Greater/Equal 1.030 (1.002-1.035); Urobilinogen,Urine 0.2 mg/dL (Less than 2)
[2018-06-04 22:56] LABS: RBC,Urine 0-3 /hpf (0-3); WBC,Urine 0-5 /hpf (0-5)
[2018-06-05] MEDS: Dextrose 5%/NaCl 0.9% Inj 1,000 ML IV.CONT SCH ×3 (01:11→21:21)
[2018-06-05] MEDS: Piperacil/Tazo 2.25 GM Premix 2.25 GM/50 ML PIGGYBACK IV.SIG SCH ×4 (02:51→22:25)
--- NOTE | 2018-06-05 03:47 | P.HPIM ---
History of Present Illness Primary Care Physician: Manjinder Baldwin MD Mr. Eden is a pleasantly confused 88 year-old male with a history of hypertension, CAD s/p CABG, hypothyroidism, and dementia who presented to the ER in [place] with his reporting that he has been lethargic and weak since yesterday morning. He was found to have a new finding of very small pneumoperitoneum of abdominal CT, WBC of 14.0, mild lactic acid elevation, acute on chronic renal failure, and elevated TSH and was transferred [place] [facility] [place] service. The patient was seen in his hospital room with his at the bedside. The patient denies pain at the time of my visit. He was noted by his to have rigors in the morning followed by severe weakness and sleepiness. He had abdominal pain 5 days ago and was seen in the ER with a abd distention and gallstones with mild CBD dilation. They haven't been able to follow up with GI yet as recommended. His symptoms seemed to resolve in between visits but he is noted to be tender with palpation of the right middle abdomen. T max 100.4. He denies any recent chest pain, shortness of breath, nausea, vomiting, or diarrhea. Inpatient Certification Inpatient Certification: I certify that the inpatient services were ordered in accordance with Medicare regulations governing the order. This includes certification that hospital inpatient services are reasonable and necessary and in the case of services not specified as inpatient-only under 42 CFR 419.22(n), that they are appropriately provided as inpatient services in accordance to with the 2-midnight benchmark under 43 CFR 412.3(e) Estimated Total Length of Stay (Days): 4 Plans for Post Hospital Care: Not yet determined Review of Systems Review of Systems: all other systems reviewed are negative [facility] Family History Family History Brother Coronary artery disease Social History Social History Substance History: No History of Abuse Second Hand Smoke Exposure: No Smoking Status: Former smoker Tobacco Type: Cigarettes Smoking End Date: 1998 How Often Do You Have a Drink Containing Alcohol: Never Recent Travel in USA within the Last 8 Weeks: No Recent Out of Country Travel within the Last 8 Weeks: No Immunization History Tetanus Immunization: <5 Years Medications and Allergies Allergies Allergy/AdvReac Type Severity Reaction Status Date / Time No Known Allergies Allergy Verified 06/04/18 16:48 Home Medications Medication Instructions Recorded Confirmed Type amlodipine 5 mg PO DAILY 05/30/18 06/04/18 History enalapril maleate 20 mg PO DAILY 05/30/18 06/04/18 History levothyroxine 100 mcg PO DAILY 05/30/18 06/04/18 History metoprolol succinate 25 mg PO DAILY 05/30/18 06/04/18 History Active Medications: Active Medications Dextrose/Sodium Chloride (D5w/Normal Saline Inj) 1,000 mls @ 75 mls/hr IV.CONT .[id number] [facility] Last Admin: 06/05/18 01:11 Dose: 75 mls/hr Piperacillin/Tazobactam/Dextrose (Zosyn 2.25 Gm Premix) 2.25 gm in 50 mls @ 100 mls/hr IV.SIG Q6H [facility] Last Infusion: 06/05/18 03:21 Dose: Infused Ondansetron HCl (Zofran Inj) 4 mg IV.PUSH Q6H PRN PRN Reason: NAUSEA OR VOMITING Physical Exam Vital signs: Vital Signs 06/04/18 16:48 06/04/18 20:29 06/05/18 02:00 Temperature 98.2 F 100.4 F H Pulse Rate 125 H 89 90 Respiratory Rate 20 16 18 Blood Pressure 130/69 104/46 L 132/60 Pulse Oximetry 97 95 96 Intake & Output 06/04/18 06/04/18 06/05/18 06:59 18:59 06:59 Intake Total 1100 / 1100 Balance 1100 / 1100 Weight 65 kg Intake: IV 1100 / 1100 Zosyn 2.25 GM Premix 2.25 gm In 50 / 50 50 ml @ 100 mls/hr IV.SIG Q6H [facility] Rx#:[id number] Zosyn 3.375 GM Premix 3.375 gm 50 / 50 In 50 ml @ 100 mls/hr IV.SIG ONCE ONE Rx#:[id number] NS Inj 1,000 ML @ 1000 mls/hr 1000 / 1000 IV.SIG BOLUS [facility] Rx#:[id number] Narrative: GENERAL: This is a well-nourished, well-developed patient, in no apparent distress. SKIN: No rashes. Cool and dry. HEAD: Atraumatic. Normocephalic. EYES: No scleral icterus. No injection or drainage. ENT: Nose without bleeding, purulent drainage. NECK: Trachea midline. No JVD. CARDIOVASCULAR: Regular rate and rhythm with murmurs, gallops, or rubs. RESPIRATORY: Clear to auscultation. Breath sounds equal bilaterally. No wheezes , rales, or rhonchi. GASTROINTESTINAL: Abdomen soft, non-tender, nondistended. No guarding. tender with palpation of the right middle abdomen MUSCULOSKELETAL: Extremities without clubbing, cyanosis, or edema. No calf tenderness. NEUROLOGICAL: Awake and alert. Pleasantly confused. Moves all extremities. . Results Labs CBC & Chem 7: 06/05/18 07:27 06/05/18 07:[address] 06/04/18 18:11 CONCLUSION: 1. No acute intracranial abnormality. . . Abdomen/Pelvis CT 06/04/18 18:21 CONCLUSION: 1. Very small volume pneumoperitoneum as detailed above. The etiology is unclear. I see no inflammatory change involving the bowel structures or stomach to suggest a source. 2. Cholelithiasis without biliary dilatation. 3. Trace amount of fluid adjacent to the anterior margin of the liver. 4. Bilateral inguinal hernias containing fat. Chest X-Ray 06/04/18 18:21 CONCLUSION: No acute cardiopulmonary disease. Caprini VTE Risk Assessment Caprini VTE Risk Assessment: Moderate/High Risk (score >= 2) Caprini Risk Assessment Model: Point Value = 1 Point Value = 2 Point Value = 3 Point Value = 5 Age 41-60 Minor surgery BMI > 25 kg/m2 Swollen legs Varicose veins or History of unexplained or recurrent spontaneous Oral contraceptives or hormone replacement Sepsis (< 1 month) Serious lung disease, including pneumonia (< 1 month) Abnormal pulmonary function Acute myocardial infarction Congestive heart failure (< 1 month) History of inflammatory bowel disease Medical patient at bed rest Age 61-74 Arthroscopic surgery Major open surgery (> 45 min) Laparoscopic surgery (> 45 min) Malignancy Confined to bed (> 72 hours) Immobilizing plaster cast Central venous access Age >= 75 History of VTE Family history of VTE Factor V Leiden Prothrombin [id number] Lupus anticoagulant Anticardiolipin antibodies Elevated serum homocysteine Heparin-induced thrombocytopenia Other congenital or acquired thrombophilia Stroke (< 1 month) Elective arthroplasty Hip, pelvis, or leg fracture Acute spinal cord injury (< 1 month) Prophylaxis Regimen: Total Risk Factor Score Risk Level Prophylaxis Regimen 0-1 Low Early ambulation 2 Moderate Order ONE of the following: *Sequential Compression Device (SCD) *Heparin 5000 units SQ BID 3-4 Higher Order ONE of the following medications: *Heparin 5000 units SQ TID *Enoxaparin/Lovenox 40 mg SQ daily (WT < 150 kg, CrCl > 30 mL/min) *Enoxaparin/Lovenox 30 mg SQ daily (WT < 150 kg, CrCl > 10-29 mL/min) *Enoxaparin/Lovenox 30 mg SQ BID (WT < 150 kg, CrCl > 30 mL/min) AND/OR *Sequential Compression Device (SCD) 5 or more Highest Order ONE of the following medications: *Heparin 5000 units SQ TID (Preferred with Epidurals) *Enoxaparin/Lovenox 40 mg SQ daily (WT < 150 kg, CrCl > 30 mL/min) *Enoxaparin/Lovenox 30 mg SQ daily (WT < 150 kg, CrCl > 10-29 mL/min) *Enoxaparin/Lovenox 30 mg SQ BID (WT < 150 kg, CrCl > 30 mL/min) AND *Sequential Compression Device (SCD) Assessment and Plan Plan Mr. Eden is a pleasantly confused 88 year-old male with a history of hypertension, CAD s/p CABG, hypothyroidism, and dementia who presented to the ER in [place] with his reporting that he has been lethargic and weak since yesterday morning. He was found to have a new finding of very small pneumoperitoneum of abdominal CT, WBC of 14.0, mild lactic acid elevation, acute on chronic renal failure, and elevated TSH and was transferred [place] [facility] [place] service. Pneumoperitoneum - WBC 14.0 with neutrophilia and lactic acid mildly elevated at 2.1 but returned to normal at 1.4 after receiving IVF hydration - consult to general surgery - appreciate assistance - Antibiotic: Renally dosed Zosyn 2.25 mg IV q6h IV - NPO - Analgesia: Morphine 2 mg IV q4h prn pain - Antiemetics: Zofran 4 mg IV q6h prn n/v Cholelithiasis without biliary dilatation - Will need outpatient f/u with gastroenterology as recommended during 05/30 admission - Monitor symptoms and LFTs Acute on chronic kidney disease - BUN 46, creatinine 2.3, creatinine clearance calculated at 20.8, eGFR 27 - Gentle IVF hydration with D5NS at 50 cc/hr given history of CAD though CHF history denied - Avoid nephrotoxins Hypothyroidism - TSH 14.5; will check free T3 and T4 - restart Levothyroxine when p.o. re-established - IV Synthroid should be considered when free T3 and T4 results are available Hypertension - BP currently stable within normal parameters - Resume p.o. medications when no longer npo - monitor bp trends and adjust treatments if needed History of CAD s/p CABG - resume home metoprolol when p.o. resumed, hold MARIA LUZ until renal function improves DVT prophylaxis - SCDs for now- general surgeon consultation pending The exam, history, and the medical decision-making described in the above note were completed with the assistance of the mid-level provider. I reviewed and agree with the findings presented. I attest that I had a [id number] encounter with the patient on the same day, and personally performed and documented my assessment and findings in the medical record. 88 yo M with HTN, CAD, HLD, CKD stage 3, Hypothyroidism and dementia presented with weakness, lethargy and rigors. At this time he has no complaints denies abdominal pain VS noted tender r upper, epigastric and hypogastric areas A CT with pneumoperitoneum WC 14K Lactic 2.1 Pt with multiple comorbidities with pneumoperitoneum, elevated lactic acid, SIRS suspect Sepsis from GI source NPO, pain mgt and zosyn. Discussed with GS, transferred to [facility] and consult GI for endoscopy. Start PPI H&P: Quality VTE Deep Vein Thrombosis/Pulmonary Embolism Present on Admission: No
[2018-06-05] MEDS ORDERED: Dextrose 50% in Water 50 ML Vial IV.PUSH PRN (06:13)
[2018-06-05] MEDS ORDERED: Sodium Chloride 0.9% 2 ML Flush PRN IV.FLUSH (06:23)
[2018-06-05 08:35] LABS: Baso # (Auto) 0.1 th/mm3 (0.0-0.2); Baso % (Auto) 0.5 % (0.0-2.0); Eos % (Auto) 0.1 % (0.0-4.0); Hematocrit 38.8 % (39.0-51.0); Hemoglobin 12.8 gm/dL (13.0-17.0); Lymph # (Auto) 1.3 th/mm3 (1.0-4.8); Mean Corpuscular Hemoglobin 30.8 pg (27.0-34.0); Mean Corpuscular Volume 93.3 fL (80.0-100.0); Mono # (Auto) 1.1 th/mm3 (0.0-0.9); Mono % (Auto) 7.6 % (0.0-8.0); Neut # (Auto) 12.4 th/mm3 (1.8-7.7); Neut % (Auto) 82.8 % (16.0-70.0); Platelet Count 223 th/mm3 (150-450); Red Blood Count 4.16 mil/mm3 (4.50-5.90); Red Cell Distribution Width 13.4 % (11.6-17.2)
[2018-06-05] MEDS ORDERED: Pantoprazole Inj 40 MG Vial IV.PUSH SCH (09:00)
[2018-06-05 09:08] LABS: Albumin 2.7 g/dL (3.4-5.0); Anion Gap 8 meq/L (5-15); Aspartate Aminotransferase 24 U/L (15-37); Blood Urea Nitrogen 46 mg/dL (7-18); Calcium 8.8 mg/dL (8.5-10.1); Carbon Dioxide 25.5 meq/L (21.0-32.0); Chloride 106 meq/L (98-107); Glomerular Filtration Rate 27 mL/min (>89); Glucose,Random 95 mg/dL (74-106); Potassium 3.9 meq/L (3.5-5.1); Sodium 139 meq/L (136-145)
[2018-06-05 09:09] LABS: Alanine Aminotransferase 16 U/L (12-78)
[2018-06-05 09:11] LABS: Alkaline Phosphatase 64 U/L (45-117); Total Protein 6.1 g/dL (6.4-8.2)
[2018-06-05 09:20] LABS: Free T4 (Free Thyroxine) 1.35 ng/dL (0.76-1.46); Triiodothyronine (T3) Free 1.01 pg/mL (2.18-3.98)
[2018-06-05] MEDS ORDERED: Sodium Chlor 0.9% Inj 500 ML IV.SIG ONE ×4 (09:44→16:52)
[2018-06-05] MEDS: Sodium Chloride 0.9% 2 ML Flush BID IV.FLUSH SCH ×2 (09:49→22:26)
[2018-06-05 16:52] LABS: Baso # (Auto) 0.1 th/mm3 (0.0-0.2); Baso % (Auto) 0.4 % (0.0-2.0); Eos # (Auto) 0.1 th/mm3 (0.0-0.4); Eos % (Auto) 0.5 % (0.0-4.0); Hematocrit 39.8 % (39.0-51.0); Hemoglobin 13.1 gm/dL (13.0-17.0); Lymph # (Auto) 1.8 th/mm3 (1.0-4.8); Lymph % (Auto) 13.6 % (9.0-44.0); Mean Corpuscular HGB Conc 32.9 % (32.0-36.0); Mean Corpuscular Hemoglobin 31.1 pg (27.0-34.0); Mean Corpuscular Volume 94.6 fL (80.0-100.0); Mean Platelet Volume 8.3 fL (7.0-11.0); Mono # (Auto) 0.9 th/mm3 (0.0-0.9); Mono % (Auto) 7.2 % (0.0-8.0); Neut # (Auto) 10.1 th/mm3 (1.8-7.7); Neut % (Auto) 78.3 % (16.0-70.0); Platelet Count 210 th/mm3 (150-450); Red Blood Count 4.21 mil/mm3 (4.50-5.90); Red Cell Distribution Width 13.9 % (11.6-17.2); White Blood Count 12.9 th/mm3 (4.0-11.0)
[2018-06-05 17:07] LABS: Calcium 8.1 mg/dL (8.5-10.1); Carbon Dioxide 23.5 meq/L (21.0-32.0); Magnesium 2.1 mg/dL (1.5-2.5); Potassium 3.8 meq/L (3.5-5.1)
--- NOTE | 2018-06-05 17:16 | P.CONCC ---
History of Present Illness Service: Critical care medicine Consult date: 06/05/18 Requesting Physician: Scar Ramirez Reason for Consult: Critical care medicine management Primary Care Provider: Manjinder Baldwin MD Chief Complaint: Hypotension, pneumoperitoneum History of Present Illness: This is a 88-year-old male, Gambian speaking. Full CODE STATUS. Date of admission 06/04/2018. Date of consultation 06/05/2018. Past medical history includes coronary disease status post CABG x3, hypertension, hyperlipidemia, hypothyroidism, prior tobaccoism, history of nephrolithiasis and bladder stones and cholelithiasis. Patient presents to [facility] [place] with a 24-hour history of generalized weakness and lethargy. He is also complaining of abdominal pain and a CT abdomen/pelvis performed which revealed a small pneumoperitoneum involving the falciform ligament to the anterior gastric wall. Lactic acid is 2.1 and a leukocytosis of 14,000. Patient started on piperacillin/tazobactam transfer the main campus where general surgery was consulted. In reviewing records, patient had abdominal pain 6 days ago he was noted to have a mildly distended bile duct with cholelithiasis. Recommended GI follow- up which is unable to obtain. Today, patient was transferred to the ICU and started on fluconazole by general surgery. Patient became hypotensive and is received 3 L crystalloid resuscitation. Lactic acidosis actually normalized to 1.6. Patient is to go back to the OR for emergent laparotomy per Dr. Currie. We were asked to evaluate Review of Systems Constitutional: Reports body ache(s), Reports chills, Reports daytime sleepiness , Denies excessive sweating Eyes: Denies blind spots, Denies blurry vision, Denies bulging eyes Ears, Nose, Mouth, and Throat: Denies poor balance, Denies sinus pressure Cardiovascular: Denies chest pain, Denies shortness of breath with activity, Denies shortness of breath when lying down, Denies shortness of breath causing sudden awakening Respiratory: Denies cough, Denies shortness of breath, Denies shortness of breath with activity Gastrointestinal: Reports abdominal pain, Reports heartburn, Reports nausea, Denies bloating, Denies difficulty swallowing Genitourinary: Denies urinary frequency, Denies urinary hesitancy Musculoskeletal: Denies abnormal walking, Denies back pain Skin/Breast: Denies skin ulcer, Denies sores, Denies unusual bruising Neurologic: Denies abnormal hearing, Denies abnormal movements, Denies abnormal speech, Denies restless legs Psychiatric: Reports confusion, Denies anxiety, Denies depression Endocrine: Denies cold intolerance, Denies excessive sweating Hematologic/Lymphatic: Denies easy bleeding, Denies easy bruising Allergic/Immunologic: Denies GI upset with certain foods PMFSH - History History Provided By: Family Member - Medical History Medical History: Medical History (Last Reviewed 06/05/18 @ 09:02 by Maris Smith) Chronic kidney disease CAD (coronary artery disease) Dementia HTN (hypertension) High cholesterol High triglycerides Hypothyroid - Surgical History Surgical History: Surgical History (Last Reviewed 06/05/18 @ 09:02 by Maris Smith) Hx of CABG - Family History Family History: Family History Brother Coronary artery disease - Tobacco History Second Hand Smoke Exposure: No Tobacco Use In Past 30 Days: No Smoking Status: Former smoker Tobacco Type: Cigarettes Smoking End Date: 1998 - Alcohol History How Often Do You Have a Drink Containing Alcohol: Never - Substance Use History Substance History: No History of Abuse - Travel History Recent Travel in the [place] Within the Last 8 Weeks: No Recent Travel Out of the Country Within the Last 8 Weeks: No - Immunization History Tetanus Immunization: <5 Years Medications and Allergies Active Medications: Active Medications Dextrose (D50w Vial) 50 ml IV.PUSH UNSCH PRN PRN Reason: PER HYPOGLYCEMIA PROTOCOL Glucagon (Glucagon Inj) 1 mg OTHER PRN PRN PRN Reason: for Hypoglycemia Protocol Dextrose/Sodium Chloride (D5w/Normal Saline Inj) 1,000 mls @ 100 mls/hr IV.CONT .Q10H [facility] Last Admin: 06/05/18 14:55 Dose: 100 mls/hr Piperacillin/Tazobactam/Dextrose (Zosyn 2.25 Gm Premix) 2.25 gm in 50 mls @ 100 mls/hr IV.SIG Q6H [facility] Last Admin: 06/05/18 14:53 Dose: 100 mls/hr Norepinephrine Bitartrate (Levophed-Dextrose 4 Mg/250 Ml Drip) 4 mg in 250 mls @ 7.5 mls/hr IV.SIG TITRATE PRN; Protocol PRN Reason: Per Protocol Fluconazole (Diflucan 400 Mg Premix Bag) 200 mls @ 100 mls/hr IV.SIG Q24H [facility] Levothyroxine Sodium (Synthroid) 100 mcg PO DAILY [facility] Morphine Sulfate (Morphine Inj) 2 mg IV.PUSH Q4H PRN PRN Reason: pain > 4 Ondansetron HCl (Zofran Inj) 4 mg IV.PUSH Q6H PRN PRN Reason: NAUSEA OR VOMITING Pantoprazole Sodium (Protonix Inj) 40 mg IV.PUSH Q24H [facility] Last Admin: 06/05/18 09:47 Dose: 40 mg Sodium Chloride (Ns Flush) 2 ml IV.FLUSH BID [facility] Last Admin: 06/05/18 09:49 Dose: Not Given Sodium Chloride (Ns Flush) 2 ml IV.FLUSH PRN PRN PRN Reason: FLUSH AFTER USING IV ACCESS Terbutaline Sulfate (Brethine Inj) 1 mg SQ ONCE PRN PRN Reason: Extravasation Terbutaline Sulfate (Brethine Inj) 1 mg SQ UNSCH PRN PRN Reason: For Extravasation Allergies Allergy/AdvReac Type Severity Reaction Status Date / Time No Known Allergies Allergy Verified 06/04/18 16:48 Home Medications Medication Instructions Recorded Confirmed Type amlodipine 5 mg PO DAILY 05/30/18 06/04/18 History enalapril maleate 20 mg PO DAILY 05/30/18 06/04/18 History levothyroxine 100 mcg PO DAILY 05/30/18 06/04/18 History metoprolol succinate 25 mg PO DAILY 05/30/18 06/04/18 History Physical Exam Vital signs: Vital Signs 06/04/18 20:29 06/05/18 02:00 06/05/18 04:45 Temperature 100.4 F H 98.0 F Pulse Rate 89 90 87 Respiratory Rate 16 18 18 Blood Pressure 104/46 L 132/60 95/47 L Pulse Oximetry 95 96 95 06/05/18 08:00 06/05/18 08:40 06/05/18 11:30 Temperature 98.6 F 98.4 F Pulse Rate 72 72 73 Respiratory Rate 20 20 20 Blood Pressure 90/59 L 103/51 L Pulse Oximetry 97 92 L 06/05/18 12:00 06/05/18 16:13 06/05/18 16:22 Temperature Pulse Rate 66 68 69 Respiratory Rate 20 18 Blood Pressure 97/47 L Pulse Oximetry 93 L 98 Intake & Output 06/04/18 06/05/18 06/05/18 18:59 06:59 18:59 Intake Total 1100 / 1100 1550 / 1550 Balance 1100 / 1100 1550 / 1550 Weight 65 kg 68.5 kg Intake: IV 1100 / 1100 1550 / 1550 D5W/Normal Saline Inj 1,000 ML 1000 / 1000 @ 100 mls/hr IV.CONT .Q10H [facility] Rx#:[id number] Zosyn 2.25 GM Premix 2.25 gm In 50 / 50 50 / 50 50 ml @ 100 mls/hr IV.SIG Q6H [facility] Rx#:[id number] Zosyn 3.375 GM Premix 3.375 gm 50 / 50 In 50 ml @ 100 mls/hr IV.SIG ONCE ONE Rx#:[id number] NS Inj 1,000 ML @ 1000 mls/hr 1000 / 1000 IV.SIG BOLUS [facility] Rx#:[id number] NS Inj 500 ML @ Wide Open IV. 500 / 500 SIG BOLUS [facility] Rx#:[id number] Other: # Voids 1 # Incontinent Voids 1 - Constitutional no acute distress - Routine HEENT Exam Head: Present: normocephalic, atraumatic Eye: Present: EOMI, PERRL, normal accommodation ENT: Present: mucous membranes moist - Routine Neck Exam Present: supple, full ROM. Absent: JVD - Routine Respiratory Exam Present: CTA bilaterally. Absent: wheezes - Routine Cardiovascular Exam Present: S1, S2, tachycardia. Absent: murmur - Routine Abdominal Exam Present: soft, normoactive bowel sounds - Routine Exam Patient deferred: penile exam, testicular exam, scrotal exam, groin exam, perineal exam - Routine Extremities Exam Absent: cyanosis, clubbing, edema - Routine Skin Exam Present: intact - Routine Neurological Exam Present: alert, oriented X3, CN II-XII intact. Absent: sensory deficit, motor deficit - Detailed Neurological Exam: Coma Scale Eye Opening: Spontaneous Verbal Response: Oriented Motor Response: Obey commands Almond Coma Scale Total: 15 - Routine Psychiatric Exam Present: normal affect Septic Shock Reassessment Septic shock perfusion: reassessment completed Assessment and Plan - Assessment and Plan Plan: Neuro/Psych: Dementia disorder NOS Acute toxic metabolic encephalopathy secondary to abdominal sepsis Morphine sulfate 2 mg IV every 4 hours as needed pain CV: History of essential hypertension Hyperlipidemia Coronary artery disease status post CABG x3 Currently D5 normal saline at 125 cc now. Received 3 L normal saline crystalloid resuscitation Written for as needed vasopressors to maintain mean artery pressure critical 65 Holding amlodipine 5 mg daily, enalapril 20 mg daily and metoprolol tartrate 50 mg daily in light of hypotension. Resp: Nasal cannula to maintain saturations greater than equal to 92% Incentive spirometry while awake As needed albuterol aerosols every 2 hours as needed dyspnea GI: Acute abdomen Pneumoperitoneum Hypoalbuminemia Cholelithiasis CT abdomen/pelvis revealed pneumoperitoneum with air bubbles on the fossa from ligament and anterior wall of the gastric. Evaluated by general surgery. Plan for OR today with exploratory laparotomy Lactates are negative. Serial abdominal examinations Pantoprazole for GI prophylaxis N.p.o. status : Straight catheterization as needed Endo: HypoThyroidism 100 mcg of levothyroxine daily. Will increase 225 mcg when able TSH was elevated at 14.5 Renal: Chronic kidney disease stage IIIb History of nephrolithiasis Monitor urine output Accurate I's and O's Follow BMP in a.m. 06/06 Heme: Leukocytosis Monitor CBC daily. Follow trends. No indication for transfusion of blood products at this time ID: Currently on piperacillin/tazobactam and fluconazole day #1. Will check blood cultures x2 FEN: Replace electrolytes as clinically indicated Currently on D5 normal saline at 125 cc an hour MSK: PT evaluate and treat Access -Utilize peripheral IV. Central line if indicated Prophylax -GI -pantoprazole -DVT -SCD/holding pharmacological approach pending surgical intervention Level 3 consult Code Status: Full code Discussed Condition With: Patient. Son. Care plan discussed and all questions answered.
[2018-06-05] MEDS ORDERED: Bupivacaine/Epinephrine Inj 0.25% 50 ML Vial ONE (17:21)
[2018-06-05] MEDS ORDERED: Phenylephrine/NS 1000 MCG/10ML Syringe IV.PUSH ONE (17:56)
[2018-06-05] MEDS ORDERED: Lidocaine PF 1% Inj 5 ML Syringe OTHER ONE (17:56)
[2018-06-05] MEDS ORDERED: Neostigmine Inj 5 MG/5 ML Syringe IV.PUSH ONE (17:56)
[2018-06-05] MEDS ORDERED: Glycopyrrolate Inj 1 MG/5 ML Syringe IV.PUSH ONE (17:56)
[2018-06-05] MEDS ORDERED: Esmolol Bolus Inj 100 MG/10 ML Vial IV.PUSH ONE (17:56)
[2018-06-05] MEDS ORDERED: Succinylcholine Inj 100 MG/5 ML Syringe IV.PUSH ONE (17:56)
[2018-06-05] MEDS ORDERED: fentaNYL Citrate Inj 100 MCG/2 ML Ampul ONE ×2 (18:55)
[2018-06-05 19:00] LABS: ABG Base Excess -8.3 mmol/L (-2-2); ABG PCO2 35 mmHg (38-42); ABG PO2 196 mmHG (61-120)
--- NOTE | 2018-06-05 21:33 | P.CONGI ---
History of Present Illness Consult date: 06/05/18 Consult reason: Pneumoperitoneum May need endoscopy Chief complaint: Pneumoperitoneum/Sepsis History of Present Illness: Patient is a pleasant 88-year-old male with past medical history significant for hypertension, chronic kidney disease, coronary artery disease, dementia, hypertension, high cholesterol, high triglycerides and hypothyroidism. Surgical history significant for CABG. Patient presented to [facility] emergency room in [place] with report from family that he had been feeling weak and lethargic times 2 days. Patient was found to have a pneumoperitoneum small on abdominal CT leukocytosis. Family reports patient had abdominal pain 1 week ago and was seen in the emergency room for abdominal distention diagnosed with gallstones and mild common bile duct diet dilatation. As per chart review, patient's family states they were unable to follow-up with GI. Upon consultation, patient denies chest pain shortness of breath nausea vomiting or diarrhea. Denies abdominal pain on palpation. Our service has been consulted to evaluate patient for pneumoperitoneum. Upon consultation , general surgery present for consultation with plan to take patient to OR for exploratory lap. Review of Systems other PMFSH - History History Provided By: Family Member - Medical History Medical History: Medical History (Last Reviewed 06/05/18 @ 09:02 by Maris Smith) Chronic kidney disease CAD (coronary artery disease) Dementia HTN (hypertension) High cholesterol High triglycerides Hypothyroid - Surgical History Surgical History: Surgical History (Last Reviewed 06/05/18 @ 09:02 by Maris Smith) Hx of CABG - Family History Family History: Family History Brother Coronary artery disease - Tobacco History Second Hand Smoke Exposure: No Tobacco Use In Past 30 Days: No Smoking Status: Former smoker Tobacco Type: Cigarettes Smoking End Date: 1998 - Alcohol History How Often Do You Have a Drink Containing Alcohol: Never - Substance Use History Substance History: No History of Abuse - Travel History Recent Travel in the [place] Within the Last 8 Weeks: No Recent Travel Out of the Country Within the Last 8 Weeks: No - Immunization History Tetanus Immunization: <5 Years Medications and Allergies Active Medications: Active Medications Albuterol (Albuterol Neb (Prn)) 2.5 mg NEB Q2HR NEB PRN PRN Reason: DYSPNEA Dextrose (D50w Vial) 50 ml IV.PUSH UNSCH PRN PRN Reason: PER HYPOGLYCEMIA PROTOCOL Glucagon (Glucagon Inj) 1 mg OTHER PRN PRN PRN Reason: for Hypoglycemia Protocol Dextrose/Sodium Chloride (D5w/Normal Saline Inj) 1,000 mls @ 100 mls/hr IV.CONT .Q10H [facility] Last Admin: 06/05/18 21:21 Dose: 100 mls/hr Piperacillin/Tazobactam/Dextrose (Zosyn 2.25 Gm Premix) 2.25 gm in 50 mls @ 100 mls/hr IV.SIG Q6H [facility] Last Infusion: 06/05/18 17:56 Dose: Infused Norepinephrine Bitartrate (Levophed-Dextrose 4 Mg/250 Ml Drip) 4 mg in 250 mls @ 7.5 mls/hr IV.SIG TITRATE PRN; Protocol PRN Reason: Per Protocol Fluconazole (Diflucan 400 Mg Premix Bag) 200 mls @ 100 mls/hr IV.SIG Q24H [facility] Pantoprazole Sodium 80 mg/ (Sodium Chloride) 100 mls @ 10 mls/hr IV.CONT Q10H [facility] Levothyroxine Sodium (Synthroid) 100 mcg PO DAILY [facility] Morphine Sulfate (Morphine Inj) 2 mg IV.PUSH Q4H PRN PRN Reason: pain > 4 Ondansetron HCl (Zofran Inj) 4 mg IV.PUSH Q6H PRN PRN Reason: NAUSEA OR VOMITING Sodium Chloride (Ns Flush) 2 ml IV.FLUSH BID [facility] Last Admin: 06/05/18 09:49 Dose: Not Given Sodium Chloride (Ns Flush) 2 ml IV.FLUSH PRN PRN PRN Reason: FLUSH AFTER USING IV ACCESS Terbutaline Sulfate (Brethine Inj) 1 mg SQ ONCE PRN PRN Reason: Extravasation Terbutaline Sulfate (Brethine Inj) 1 mg SQ UNSCH PRN PRN Reason: For Extravasation Allergies Allergy/AdvReac Type Severity Reaction Status Date / Time No Known Allergies Allergy Verified 06/04/18 16:48 Home Medications Medication Instructions Recorded Confirmed Type amlodipine 5 mg PO DAILY 05/30/18 06/04/18 History enalapril maleate 20 mg PO DAILY 05/30/18 06/04/18 History levothyroxine 100 mcg PO DAILY 05/30/18 06/04/18 History metoprolol succinate 25 mg PO DAILY 05/30/18 06/04/18 History Exam Vital signs: Vital Signs 06/05/18 02:00 06/05/18 04:45 06/05/18 08:00 Temperature 100.4 F H 98.0 F Pulse Rate 90 87 72 Respiratory Rate 18 18 20 Blood Pressure 132/60 95/47 L Pulse Oximetry 96 95 06/05/18 08:40 06/05/18 11:30 06/05/18 12:00 Temperature 98.6 F 98.4 F Pulse Rate 72 73 66 Respiratory Rate 20 20 Blood Pressure 90/59 L 103/51 L Pulse Oximetry 97 92 L 06/05/18 16:13 06/05/18 16:22 06/05/18 16:49 Temperature Pulse Rate 68 69 75 Respiratory Rate 20 18 11 L Blood Pressure 97/47 L 108/50 L Pulse Oximetry 93 L 98 100 06/05/18 17:00 Temperature Pulse Rate 72 Respiratory Rate 16 Blood Pressure Pulse Oximetry 96 Intake & Output 06/05/18 06/05/18 06/06/18 06:59 18:59 06:59 Intake Total 1100 / 1100 1600 / 1600 2500 / 2500 Output Total 310 / 310 Balance 1100 / 1100 1600 / 1600 2190 / 2190 Weight 68.5 kg Intake: IV 1100 / 1100 1600 / 1600 1000 / 1000 D5W/Normal Saline Inj 1,000 ML 1000 / 1000 1000 / 1000 @ 100 mls/hr IV.CONT .Q10H [facility] Rx#:[id number] Zosyn 2.25 GM Premix 2.25 gm In 50 / 50 100 / 100 50 ml @ 100 mls/hr IV.SIG Q6H [facility] Rx#:[id number] Zosyn 3.375 GM Premix 3.375 gm 50 / 50 In 50 ml @ 100 mls/hr IV.SIG ONCE ONE Rx#:[id number] NS Inj 1,000 ML @ 1000 mls/hr 1000 / 1000 IV.SIG BOLUS [facility] Rx#:[id number] NS Inj 500 ML @ Wide Open IV. 500 / 500 SIG BOLUS ONE Rx#:[id number] Anesthesia Amount 1500 / 1500 Output: Estimated Blood Loss 10 / 10 Urine Amount (Catheter) 300 / 300 18fr 300 / 300 Other: # Voids 1 # Incontinent Voids 1 - Constitutional no acute distress, cooperative - Routine HEENT Exam Head: Present: normocephalic - Routine Respiratory Exam Present: CTA bilaterally - Routine Cardiovascular Exam Present: RRR - Routine Abdominal Exam Present: soft, normoactive bowel sounds. Absent: tenderness, distended, guarding, firm - Routine Extremities Exam Present: pulses intact. Absent: edema - Routine Skin Exam Present: dry, warm. Absent: pallor - Routine Neurological Exam Present: alert Results - Labs CBC & Chem 7: 06/05/18 16:21 06/05/18 16:21 Labs: Laboratory Results - last 24 hr 06/04/18 06/04/18 06/05/18 21:25 22:45 07:27 WBC 15.0 H RBC 4.16 L Hgb 12.8 L Hct 38.8 L MCV 93.3 MCH 30.8 MCHC 33.0 RDW 13.4 Plt Count 223 MPV 8.0 Neut % (Auto) 82.8 H Lymph % (Auto) 9.0 Andrew % (Auto) 7.6 Eos % (Auto) 0.1 Baso % (Auto) 0.5 Neut # (Auto) 12.4 H Lymph # (Auto) 1.3 Andrew # (Auto) 1.1 H Eos # (Auto) 0.0 Baso # (Auto) 0.1 WBC Differential . Differential Comment Auto diff final Puncture Site Patient Temperature O2 Saturation ABG pH ABG pCO2 ABG pO2 ABG HCO3 ABG O2 Content ABG Base Excess ABG Methemoglobin Hemoglobin Carboxyhemoglobin O2 Delivery Device Critical Value Sodium Potassium Chloride Carbon Dioxide Anion Gap BUN Creatinine Estimated GFR POC Glucose Random Glucose Lactic Acid 1.4 Calcium Magnesium Total Bilirubin AST ALT Alkaline Phosphatase Total Protein Albumin Free T4 Free T3 Urine Color Yellow Urine Clarity Clear Urine pH 5.5 Ur Specific [place] Greater/equal 1.030 Urine Protein Trace Urine Glucose (UA) Negative Urine Ketones Trace H Urine Occult Blood Trace Urine Nitrate Negative Urine Bilirubin Negative Urine Urobilinogen 0.2 Ur Leukocyte Esterase Negative Urine RBC 0-3 Urine WBC 0-5 Ur Squamous Epith Cells 6-10 H Micro UA Comment Culture not ind Ur Microscopic Review Microscopic reviewed Urine Culture Comments Culture not ind 06/05/18 06/05/18 06/05/18 07:27 07:27 07:38 WBC RBC Hgb Hct MCV MCH MCHC RDW Plt Count MPV Neut % (Auto) Lymph % (Auto) Andrew % (Auto) Eos % (Auto) Baso % (Auto) Neut # (Auto) Lymph # (Auto) Andrew # (Auto) Eos # (Auto) Baso # (Auto) WBC Differential Differential Comment Puncture Site Patient Temperature O2 Saturation ABG pH ABG pCO2 ABG pO2 ABG HCO3 ABG O2 Content ABG Base Excess ABG Methemoglobin Hemoglobin Carboxyhemoglobin O2 Delivery Device Critical Value Sodium 139 Potassium 3.9 Chloride 106 Carbon Dioxide 25.5 Anion Gap 8 BUN 46 H Creatinine 2.31 H Estimated GFR 27 L POC Glucose 109 Random Glucose 95 Lactic Acid Calcium 8.8 Magnesium Total Bilirubin 0.7 AST 24 ALT 16 Alkaline Phosphatase 64 Total Protein 6.1 L D Albumin 2.7 L D Free T4 1.35 Free T3 1.01 L Urine Color Urine Clarity Urine pH Ur Specific [place] Urine Protein Urine Glucose (UA) Urine Ketones Urine Occult Blood Urine Nitrate Urine Bilirubin Urine Urobilinogen Ur Leukocyte Esterase Urine RBC Urine WBC Ur Squamous Epith Cells Micro UA Comment Ur Microscopic Review Urine Culture Comments 06/05/18 06/05/18 06/05/18 12:36 13:37 16:21 WBC 12.9 H RBC 4.21 L Hgb 13.1 Hct 39.8 MCV 94.6 MCH 31.1 MCHC 32.9 RDW 13.9 Plt Count 210 MPV 8.3 Neut % (Auto) 78.3 H Lymph % (Auto) 13.6 Andrew % (Auto) 7.2 Eos % (Auto) 0.5 Baso % (Auto) 0.4 Neut # (Auto) 10.1 H Lymph # (Auto) 1.8 Andrew # (Auto) 0.9 Eos # (Auto) 0.1 Baso # (Auto) 0.1 WBC Differential . Differential Comment Auto diff final Puncture Site Patient Temperature O2 Saturation ABG pH ABG pCO2 ABG pO2 ABG HCO3 ABG O2 Content ABG Base Excess ABG Methemoglobin Hemoglobin Carboxyhemoglobin O2 Delivery Device Critical Value Sodium Potassium Chloride Carbon Dioxide Anion Gap BUN Creatinine Estimated GFR POC Glucose 103 Random Glucose Lactic Acid 1.6 Calcium Magnesium Total Bilirubin AST ALT Alkaline Phosphatase Total Protein Albumin Free T4 Free T3 Urine Color Urine Clarity Urine pH Ur Specific [place] Urine Protein Urine Glucose (UA) Urine Ketones Urine Occult Blood Urine Nitrate Urine Bilirubin Urine Urobilinogen Ur Leukocyte Esterase Urine RBC Urine WBC Ur Squamous Epith Cells Micro UA Comment Ur Microscopic Review Urine Culture Comments 06/05/18 06/05/18 16:21 18:50 WBC RBC Hgb Hct MCV MCH MCHC RDW Plt Count MPV Neut % (Auto) Lymph % (Auto) Andrew % (Auto) Eos % (Auto) Baso % (Auto) Neut # (Auto) Lymph # (Auto) Andrew # (Auto) Eos # (Auto) Baso # (Auto) WBC Differential Differential Comment Puncture Site Art line Patient Temperature 98.6 O2 Saturation 97 ABG pH 7.30 L ABG pCO2 35 L ABG pO2 196 H ABG HCO3 17 L ABG O2 Content 18.0 ABG Base Excess -8.3 L ABG Methemoglobin 1.4 Hemoglobin 12.9 Carboxyhemoglobin 0.6 O2 Delivery Device Ventilator Critical Value No Sodium 141 Potassium 3.8 Chloride 109 H Carbon Dioxide 23.5 Anion Gap 9 BUN 40 H Creatinine 2.10 H Estimated GFR 30 L POC Glucose Random Glucose 81 Lactic Acid Calcium 8.1 L Magnesium 2.1 Total Bilirubin AST ALT Alkaline Phosphatase Total Protein Albumin Free T4 Free T3 Urine Color Urine Clarity Urine pH Ur Specific [place] Urine Protein Urine Glucose (UA) Urine Ketones Urine Occult Blood Urine Nitrate Urine Bilirubin Urine Urobilinogen Ur Leukocyte Esterase Urine RBC Urine WBC Ur Squamous Epith Cells Micro UA Comment Ur Microscopic Review Urine Culture Comments Assessment and Plan (1) Pneumoperitoneum Status: Acute Code(s): K66.8 - Other specified disorders of peritoneum - Plan Patient is a pleasant 88-year-old male with past medical history significant for hypertension, chronic kidney disease, coronary artery disease, dementia, hypertension, high cholesterol, high triglycerides and hypothyroidism. Surgical history significant for CABG. Patient presented to [facility] emergency room in [place] with report from family that he had been feeling weak and lethargic times 2 days. Patient was found to have a pneumoperitoneum small on abdominal CT leukocytosis. Family reports patient had abdominal pain 1 week ago and was seen in the emergency room for abdominal distention diagnosed with gallstones and mild common bile duct diet dilatation. As per chart review, patient's family states they were unable to follow-up with GI. Upon consultation, patient denies chest pain shortness of breath nausea vomiting or diarrhea. Denies abdominal pain on palpation. Our service has been consulted to evaluate patient for pneumoperitoneum. Upon consultation , general surgery present for consultation with plan to take patient to OR for exploratory lap. Pneumoperitoneum HPI as noted above 06/04/2018 CT abdomen and pelvis-- Very small volume pneumoperitoneum as detailed above. The etiology is unclear. I see no inflammatory change involving the bowel structures or stomach to suggest a source. Cholelithiasis without biliary dilatation. Trace amount of fluid adjacent to the anterior margin of the liver. Bilateral inguinal hernias containing fat. --WBC 12.9 hemoglobin 13.1 hematocrit 39.8 platelet count 210 --Total bilirubin 0.7 AST 24 ALT 16 alk phos 64 lipase 123 Plan -N.p.o. -Surgical intervention to evaluate for hollow viscus perforation, looks more indicated than endoscopic intervention at this time -GI will sign off, please notify for any further assistance This patient has been seen by myself and Dr. Pitts this note is written on his behalf - Attending Attestation Dr. Pitts
--- NOTE | 2018-06-05 21:47 | P.OP ---
- Preoperative Diagnosis (1) Pneumoperitoneum - Postoperative Diagnosis (1) Perforated gastric ulcer Procedure: dx lap lap repair of gastric ulcer with modified ghram patch Anesthesia: GETAvani Surgeon: Christoph Currie MD Pathology: none sent Operation and Findings: perforated ulcer lesser cure of stomach
[2018-06-05] MEDS: Pantoprazole Inj 80 MG in Sodium Chlor 0.9% Inj 100 ML IV.CONT SCH (22:31)
--- NOTE | 2018-06-05 22:39 | MB ---
cc: Christoph Currie MD DATE: 06/05/2018 CHIEF COMPLAINTS: Pneumoperitoneum, abdominal pain. [employer] SUPERVISOR: Dr. Kaye Harry. HISTORY OF PRESENT ILLNESS: The patient is an 88-year-old male with several medical issues including coronary artery disease, CABG, dementia, presents to the ER at [facility] with reporting of lethargy and weakness for the past several days. The patient noted to have increased abdominal pain. The patient was seen approximately 1 week ago with right upper quadrant and right lower quadrant pain. CT findings of gallstones. The patient referred to GI. Per the , states the pain persisted and the patient continued to be lethargic, prompting them to return to the emergency department. The pain appears to be 5/10, worse with movement, better with lying still, worse with palpation. notes a T-max of 100.4. She denies any vomiting or change in bowel habits. He had further workup, including CT scan showing a small amount of pneumoperitoneum along with leukocytosis. Surgery was consulted. PAST MEDICAL HISTORY: Dementia, coronary artery disease, hypertension, hypothyroid. PAST SURGICAL HISTORY: Coronary artery bypass graft. SOCIAL HISTORY: Previous smoking. Denies current smoking, ETOH, or IVDA. ALLERGIES: NO KNOWN DRUG ALLERGIES. MEDICATIONS: See EMR. FAMILY HISTORY: Denies diabetes or hypertension. REVIEW OF SYSTEMS: GENERAL: Complains of low-grade fever. HEENT: Denies eye pain, ear pain. NECK: Denies swelling or pain. LUNGS: Denies cough or wheeze. HEART: Denies palpitation or chest pain. ABDOMEN: Complains of abdominal pain. Denies nausea or vomiting. GENITOURINARY: Denies dysuria or hematuria. Denies polyuria, polydipsia. INTEGUMENT: Denies any masses or lesions. NEUROLOGIC: Denies numbness. PSYCHIATRIC: Denies change in mood, lethargy. PHYSICAL EXAMINATION: GENERAL: The patient in no acute distress. VITAL SIGNS: Temperature 98.2, pulse of 125, respirations 20, blood pressure 130/69, saturation 97%. HEENT: Pupils equal, round, and reactive. NECK: Supple. Trachea midline. LUNGS: Bilateral expansion, coarse. HEART: S1, S2. Regular. Healed midline sternotomy scar. ABDOMEN: Soft, positive tenderness to palpation, diffuse. No significant rebound or guarding. EXTREMITIES: Warm and well perfused. NEUROLOGIC: Intermittently answers questions. PSYCHIATRIC: Appropriate mood. LABORATORY DATA: WBC 14, hemoglobin 14.2, hematocrit 41.9, platelet 296. INR is 1.1, sodium is 139, potassium 3.9, chloride 106, BUN is 46, creatinine 2.3. DIAGNOSTIC DATA: CT reviewed by myself. Noncontrasted CT showing gallstones along with trace amounts of pneumoperitoneum. ASSESSMENT: The patient is an 88-year-old male who presents with a history of dementia, coronary artery disease, presents with abdominal pain and scant pneumoperitoneum. PLAN: After full workup, the patient will . At this point, the patient will need to be transferred to [facility]. My concern is the patient has trace pneumoperitoneum, which we do not have a definitive source for. Questionable whether perforated viscus versus pneumobilia. At this point, the patient needs to be on IV antibiotics, pain control, nothing by mouth. Consider nasogastric tube placement. We will consider and have a low threshold for operative intervention if any deterioration, change in vital signs, or persistence of abdominal pain or pneumoperitoneum. Discussed with family at bedside. They state agree. They would like to proceed. Also, consideration for intensive care unit close observation. MD JOCELYN Vallejo/pawan/ , 09:54 PM , 10:05 PM
--- NOTE | 2018-06-05 23:50 | MP ---
cc: Christoph Currie MD DATE OF OPERATION: 06/05/2018 DATE OF PROCEDURE: 06/05/2018 PREOPERATIVE DIAGNOSIS: Pneumoperitoneum hypertension, abdominal pain. POSTOPERATIVE DIAGNOSIS: Pneumoperitoneum hypertension, abdominal pain, perforated gastric ulcer. PROCEDURE PERFORMED: 1. Diagnostic laparoscopy. 2. Laparoscopic repair of gastric ulcer with modified Nikos patch. SURGEON: Christoph Currie MD SPINDRAW OPERATOR: None. ANESTHESIA: GETA. FLUIDS: See anesthesia sheet. ESTIMATED BLOOD LOSS: 15 mL DRAINS: 10-[place] drain placed over the perforation repair, a second 10-[place] drain placed in the pelvis. SPECIMENS: None. FINDINGS: Purulent drainage along with a 1 cm perforated gastric ulcer lesser curve distally. Good hemostasis. INDICATIONS: The patient is an 88-year-old male who presents with abdominal pain and pneumoperitoneum. The patient continued hypotension, leukocytosis and persistent abdominal pain. Decision was for diagnostic laparoscopy, possible gastric ulcer perforated viscus repair. Discussed with family in detail who understand and agree. DETAILS OF PROCEDURE: The patient was taken to the operating suite, placed in supine position, prepped and draped in usual sterile fashion after induction of general endotracheal anesthesia. Timeout was done, stating correct patient, procedure and surgical site. We did a timeout sense the correct patient, procedure, surgical site. We were all in agreement with this. Attention was directed to the umbilicus where local anesthetic was injected. A small stab per incision was made with a #11 blade. The Veress needle was used, saline drop test confirmed intraabdominal placed abdomen insufflated to 15 mmHg pneumoperitoneum. Veress needle changed 5 mm trocar and on cursory inspection, no evidence of injury. Three other trocars were placed, including one right lower quadrant trocar, one mid quadrant trocar and a right upper quadrant trocar. These were all 5 mm. The liver retractor was placed with Morelia-Flex and attached with the robot arm. Exploration began over the right lobe of the liver. There was noted to be some loculated purulence there. Further dissection and identification noted to be a 1 cm ulcer distally on lesser curvature. Decision was to repair this using a modified Nikos patch technique. This was done with 2-0 Vicryl sutures in interrupted fashion to reapproximate the ulcer edges. Next, a tongue of omentum was obtained and placed over the wound bed and sutured in place. Suction irrigation was done until the effluent was clear. Further exploration did not identify any other significant pathology or abdominal abnormalities. NG tube was placed and advanced down the stomach. It is noted to be in place and secured. Following this, two drains were placed, one right lateral quadrant was placed down the pelvis in the right upper quadrant was placed up by the anastomosis by the ulcer repair. Next, pneumoperitoneum was removed, ports were removed, ports were closed with 4-0 Monocryl subcuticular stitch and sterile dressing including Steri-Strips were placed, 4 x 4s, and 2-0 nylon sutures placed around both drains. The patient tolerated the procedure well. There were no operative complications. All lap and instrument counts were correct at the end of the procedure. The patient was extubated and taken to the PACU. MD JOCELYN Vallejo/russell/saman , 09:59 PM , 10:09 PM
[2018-06-06] MEDS: Piperacil/Tazo 2.25 GM Premix 2.25 GM/50 ML PIGGYBACK IV.SIG SCH ×4 (02:05→20:46)
[2018-06-06 05:00] LABS: Baso % (Auto) 0.1 % (0.0-2.0); Hematocrit 36.3 % (39.0-51.0); Hemoglobin 11.8 gm/dL (13.0-17.0); Lymph # (Auto) 0.4 th/mm3 (1.0-4.8); Lymph % (Auto) 3.1 % (9.0-44.0); Mean Corpuscular HGB Conc 32.5 % (32.0-36.0); Mean Corpuscular Hemoglobin 30.3 pg (27.0-34.0); Mean Corpuscular Volume 93.1 fL (80.0-100.0); Mean Platelet Volume 8.1 fL (7.0-11.0); Mono # (Auto) 0.5 th/mm3 (0.0-0.9); Mono % (Auto) 3.8 % (0.0-8.0); Platelet Count 198 th/mm3 (150-450); Red Cell Distribution Width 13.5 % (11.6-17.2); White Blood Count 12.9 th/mm3 (4.0-11.0)
[2018-06-06] MEDS: Dextrose 5%/NaCl 0.9% Inj 1,000 ML IV.CONT SCH ×5 (05:10→23:29)
[2018-06-06 05:13] LABS: Activated Partial Thrombo Time 33.3 sec (23.4-31.7); INR 1.2 Ratio
[2018-06-06 05:23] LABS: Anion Gap 8 meq/L (5-15)
[2018-06-06 05:32] LABS: Blood Urea Nitrogen 26 mg/dL (7-18); Calcium 7.3 mg/dL (8.5-10.1); Carbon Dioxide 19.8 meq/L (21.0-32.0); Chloride 113 meq/L (98-107); Glomerular Filtration Rate 41 mL/min (>89); Glucose,Random 145 mg/dL (74-106); Lipase 161 U/L (73-393); Potassium 4.2 meq/L (3.5-5.1); Sodium 141 meq/L (136-145)
[2018-06-06 06:01] LABS: Albumin 2.4 g/dL (3.4-5.0); Calcium-Albumin Corrected 8.6 mg/dL (8.5-10.1)
--- NOTE | 2018-06-06 07:06 | P.PNCC ---
Subjective Subjective Remarks/Hospital Course: This is a 88-year-old male, Kazakh speaking. Full CODE STATUS. Date of admission 06/04/2018. Date of consultation 06/05/2018. Past medical history includes coronary disease status post CABG x3, hypertension, hyperlipidemia, hypothyroidism, prior tobaccoism, history of nephrolithiasis and bladder stones and cholelithiasis. Patient presents to [facility] with a 24-hour history of generalized weakness and lethargy. He is also complaining of abdominal pain and a CT abdomen/pelvis performed which revealed a small pneumoperitoneum involving the falciform ligament to the anterior gastric wall. Lactic acid is 2.1 and a leukocytosis of 14,000. Patient started on piperacillin/tazobactam transfer the main campus where general surgery was consulted. In reviewing records, patient had abdominal pain 6 days ago he was noted to have a mildly distended bile duct with cholelithiasis. Recommended GI follow- up which is unable to obtain. Today, patient was transferred to the ICU and started on fluconazole by general surgery. Patient became hypotensive and is received 3 L crystalloid resuscitation. Lactic acidosis actually normalized to 1.6. Patient is to go back to the OR for emergent laparotomy per Dr. Currie. We were asked to evaluate SUBJECTIVE: 06/06: Status post lap scopic procedure with diagnosis of perforated gastric ulcer status post Nikos patch and 2 #[address] [place] [address] by Dr[address] Currie. Hemodynamically stable not on any vasopressors started on pantoprazole drip overnight. No new issues. Objective Vital Signs / I&O: Vital Signs 06/05/18 08:00 06/05/18 08:40 06/05/18 11:30 Temperature 98.6 F 98.4 F Pulse Rate 72 72 73 Respiratory Rate 20 20 20 Blood Pressure 90/59 L 103/51 L Pulse Oximetry 97 92 L 06/05/18 12:00 06/05/18 16:13 06/05/18 16:22 Temperature Pulse Rate 66 68 69 Respiratory Rate 20 18 Blood Pressure 97/47 L Pulse Oximetry 93 L 98 06/05/18 16:49 06/05/18 17:00 06/05/18 20:00 Temperature 98.3 F Pulse Rate 75 72 116 H Respiratory Rate 11 L 16 16 Blood Pressure 108/50 L 132/59 L Pulse Oximetry 100 96 94 L 06/05/18 20:15 06/05/18 20:30 06/05/18 20:45 Temperature Pulse Rate 106 H 114 H 112 H Respiratory Rate 14 16 16 Blood Pressure 107/55 L Pulse Oximetry 95 94 L 96 06/05/18 21:00 06/05/18 21:26 06/05/18 21:27 Temperature 98.0 F 97.4 F L Pulse Rate 104 H 88 87 Respiratory Rate 14 14 16 Blood Pressure 99/51 L Pulse Oximetry 97 95 97 06/05/18 21:28 06/05/18 21:31 06/05/18 21:35 Temperature Pulse Rate 86 83 82 Respiratory Rate 14 14 16 Blood Pressure 104/52 L 103/51 L 97/50 L Pulse Oximetry 97 96 97 06/05/18 21:46 06/05/18 21:50 06/05/18 21:51 Temperature Pulse Rate 76 75 73 Respiratory Rate 14 15 14 Blood Pressure 99/53 L 92/54 L Pulse Oximetry 96 97 96 06/05/18 21:55 06/05/18 22:00 06/05/18 22:10 Temperature Pulse Rate 73 67 71 Respiratory Rate 14 16 13 Blood Pressure 92/55 L 95/50 L Pulse Oximetry 97 98 98 06/05/18 22:25 06/05/18 22:42 06/05/18 22:45 Temperature Pulse Rate 74 68 Respiratory Rate 16 14 Blood Pressure 99/51 L 104/56 L Pulse Oximetry 97 100 99 06/05/18 22:55 06/05/18 23:00 06/05/18 23:08 Temperature Pulse Rate 67 75 60 Respiratory Rate 15 16 12 Blood Pressure 102/57 L 95/52 L Pulse Oximetry 99 99 98 06/05/18 23:10 06/05/18 23:25 06/05/18 23:40 Temperature Pulse Rate 63 64 73 Respiratory Rate 13 15 14 Blood Pressure 101/51 L 106/54 L 112/59 L Pulse Oximetry 98 98 98 06/05/18 23:52 06/05/18 23:55 06/06/18 00:00 Temperature Pulse Rate 68 62 65 Respiratory Rate 16 15 16 Blood Pressure 90/49 L 92/52 L Pulse Oximetry 98 98 98 06/06/18 00:04 06/06/18 00:10 06/06/18 00:25 Temperature 98.4 F Pulse Rate 66 64 68 Respiratory Rate 16 16 Blood Pressure 95/51 L 97/49 L Pulse Oximetry 98 99 06/06/18 00:40 06/06/18 00:55 06/06/18 01:00 Temperature Pulse Rate 70 61 61 Respiratory Rate 18 14 12 Blood Pressure 104/53 L 92/46 L Pulse Oximetry 98 98 98 06/06/18 01:10 06/06/18 01:25 06/06/18 01:40 Temperature Pulse Rate 70 60 61 Respiratory Rate 18 12 13 Blood Pressure 117/58 L 104/52 L 99/50 L Pulse Oximetry 98 97 99 06/06/18 01:55 06/06/18 01:57 06/06/18 02:00 Temperature Pulse Rate 82 74 81 Respiratory Rate 21 20 Blood Pressure 105/51 L Pulse Oximetry 98 98 06/06/18 02:10 06/06/18 02:25 06/06/18 02:40 Temperature Pulse Rate 79 77 67 Respiratory Rate 18 22 18 Blood Pressure 101/58 L 103/55 L 106/55 L Pulse Oximetry 98 100 100 06/06/18 02:55 06/06/18 03:00 06/06/18 03:10 Temperature Pulse Rate 74 73 69 Respiratory Rate 17 19 17 Blood Pressure 99/57 L 109/58 L Pulse Oximetry 99 100 100 06/06/18 03:25 06/06/18 03:40 06/06/18 03:55 Temperature Pulse Rate 70 63 62 Respiratory Rate 14 15 12 Blood Pressure 105/52 L 92/49 L 104/52 L Pulse Oximetry 99 100 100 06/06/18 04:00 06/06/18 04:10 06/06/18 04:25 Temperature Pulse Rate 72 72 58 L Respiratory Rate 16 19 12 Blood Pressure 121/59 L 102/52 L Pulse Oximetry 100 100 100 06/06/18 04:40 06/06/18 04:55 06/06/18 05:00 Temperature Pulse Rate 68 60 71 Respiratory Rate 16 14 18 Blood Pressure 111/55 L 98/60 L Pulse Oximetry 100 100 100 06/06/18 05:10 06/06/18 05:27 06/06/18 05:40 Temperature Pulse Rate 67 65 60 Respiratory Rate 16 15 14 Blood Pressure 120/58 L 100/54 L 97/51 L Pulse Oximetry 100 100 100 06/06/18 05:49 06/06/18 05:55 06/06/18 06:00 Temperature Pulse Rate 59 L 82 64 Respiratory Rate 15 20 Blood Pressure 113/66 Pulse Oximetry 96 100 Intake & Output 06/05/18 06/06/18 06/06/18 18:59 06:59 18:59 Intake Total 1600 / 1600 3426 / 3426 Output Total 1540 / 1540 Balance 1600 / 1600 1886 / 1886 Weight 72.5 kg Intake: IV 1600 / 1600 1926 / 1926 D5W/Normal Saline Inj 1,000 ML 1000 / 1000 1754 / 1754 @ 100 mls/hr IV.CONT .Q10H [facility] Rx#:[id number] Protonix Inj 80 MG In NS Inj 72 / 72 100 ML @ 10 mls/hr IV.CONT Q10H [facility] Rx#:[id number] Zosyn 2.25 GM Premix 2.25 gm In 100 / 100 100 / 100 50 ml @ 100 mls/hr IV.SIG Q6H [facility] Rx#:[id number] NS Inj 500 ML @ Wide Open IV. 500 / 500 SIG BOLUS ONE Rx#:[id number] Anesthesia Amount 1500 / 1500 Output: Estimated Blood Loss 10 / 10 Urine Amount (Catheter) 1300 / 1300 18fr 1300 / 1300 Gastric Drainage 125 / 125 Right Nare 125 / 125 Wound Drainage 105 / 105 # 1 Abdomen 90 / 90 # 2 Abdomen 15 / 15 Other: # Voids 1 # Incontinent Voids 1 Result Diagrams: 06/06/18 04:30 06/06/18 04:30 Imaging: Head CT 06/04/18 18:11 CONCLUSION: 1. No acute intracranial abnormality. . . Abdomen/Pelvis CT 06/04/18 18:21 CONCLUSION: 1. Very small volume pneumoperitoneum as detailed above. The etiology is unclear. I see no inflammatory change involving the bowel structures or stomach to suggest a source. 2. Cholelithiasis without biliary dilatation. 3. Trace amount of fluid adjacent to the anterior margin of the liver. 4. Bilateral inguinal hernias containing fat. Chest X-Ray 06/04/18 18:21 CONCLUSION: No acute cardiopulmonary disease. Objective Remarks: GENERAL: 88-year-old male currently in bed in no acute distress SKIN: Warm and dry. No mottling HEAD: Atraumatic. Normocephalic. EYES: Pupils equal and round. No scleral icterus. No injection or drainage. ENT: No nasal bleeding or discharge. Mucous membranes pink and moist. NECK: Trachea midline. No JVD. CARDIOVASCULAR: Regular rate and rhythm. S1, S2. No S4. Without murmur RESPIRATORY: No accessory muscle use. Clear to auscultation. Breath sounds equal bilaterally. GASTROINTESTINAL: Abdomen soft, non-tender, 2 #10 Cuban drains in the epigastric and pelvic regions with serosanguineous drainage. Steri strips over laparoscopic trocar sites. MUSCULOSKELETAL: Extremities without clubbing, cyanosis, or edema. No obvious deformities. NEUROLOGICAL: Awake and alert. No obvious cranial nerve deficits. Motor grossly within normal limits. Five out of 5 muscle strength in the arms and legs. Normal speech injury speaks Kazakh Assessment and Plan - Assessment and Plan Plan: Neuro/Psych: Dementia disorder NOS Acute toxic metabolic encephalopathy secondary to abdominal sepsis Morphine sulfate 2 mg IV every 4 hours as needed pain CV: History of essential hypertension Hyperlipidemia Coronary artery disease status post CABG x3 Currently D5 normal saline at 125 cc now. Received 3 L normal saline crystalloid resuscitation Written for as needed vasopressors to maintain mean artery pressure critical 65 Holding amlodipine 5 mg daily, enalapril 20 mg daily and metoprolol tartrate 50 mg daily in light of hypotension. Resp: Nasal cannula to maintain saturations greater than equal to 92% Incentive spirometry while awake As needed albuterol aerosols every 2 hours as needed dyspnea GI: Postop day #1 laparoscopic repair of perforated gastric ulcer with Nikos patch in place #10 Cuban drains x2 Pneumoperitoneum Hypoalbuminemia Cholelithiasis CT abdomen/pelvis revealed pneumoperitoneum with air bubbles on the fossa from ligament and anterior wall of the gastric. Evaluated by general surgery. Yesterday as above Lactates are negative. Pantoprazole drip currently at 8 mg an hour N.p.o. status Self discontinued NG tube. Surgery where : Straight catheterization as needed Endo: HypoThyroidism 100 mcg of levothyroxine daily. Will increase 225 mcg when able TSH was elevated at 14.5 Renal: Chronic kidney disease stage IIIb History of nephrolithiasis Monitor urine output Accurate I's and O's Follow BMP in a.m. 06/07. Creatinine currently 1.6 Heme: Leukocytosis Normocytic anemia Monitor CBC daily. Follow trends. No indication for transfusion of blood products at this time ID: Currently on piperacillin/tazobactam and fluconazole day #1. Will check blood cultures x2 FEN: Hypophosphatemia Replace electrolytes as clinically indicated Currently on D5 normal saline at 125 cc an hour MSK: PT evaluate and treat Access -Utilize peripheral IV. Central line if indicated Prophylax -GI -pantoprazole -DVT -SCD/holding pharmacological approach pending surgical intervention Level 3 follow-up
[2018-06-06] MEDS ORDERED: Sodium Glycerophosphate Inj 15 MMOL in Sodium Chlor 0.9% Inj 150 ML IV.SIG ONE (08:00)
[2018-06-06] MEDS: Pantoprazole Inj 80 MG in Sodium Chlor 0.9% Inj 100 ML IV.CONT SCH ×3 (08:06→19:51)
[2018-06-06] MEDS: Sodium Chloride 0.9% 2 ML Flush BID IV.FLUSH SCH ×2 (08:08→20:31)
[2018-06-06] MEDS: Levothyroxine 100 MCG Tablet PO SCH (08:09)
--- NOTE | 2018-06-06 08:41 | P.PNGS ---
Subjective Patient reports: no bowel movement (stable overnight, bp better, incisional pain ) Physical Exam Vital signs: Vital Signs 06/05/18 08:40 06/05/18 11:30 06/05/18 12:00 Temperature 98.6 F 98.4 F Pulse Rate 72 73 66 Respiratory Rate 20 20 Blood Pressure 90/59 L 103/51 L Pulse Oximetry 97 92 L 06/05/18 16:13 06/05/18 16:22 06/05/18 16:49 Temperature Pulse Rate 68 69 75 Respiratory Rate 20 18 11 L Blood Pressure 97/47 L 108/50 L Pulse Oximetry 93 L 98 100 06/05/18 17:00 06/05/18 20:00 06/05/18 20:15 Temperature 98.3 F Pulse Rate 72 116 H 106 H Respiratory Rate 16 16 14 Blood Pressure 132/59 L Pulse Oximetry 96 94 L 95 06/05/18 20:30 06/05/18 20:45 06/05/18 21:00 Temperature 98.0 F Pulse Rate 114 H 112 H 104 H Respiratory Rate 16 16 14 Blood Pressure 107/55 L Pulse Oximetry 94 L 96 97 06/05/18 21:26 06/05/18 21:27 06/05/18 21:28 Temperature 97.4 F L Pulse Rate 88 87 86 Respiratory Rate 14 16 14 Blood Pressure 99/51 L 104/52 L Pulse Oximetry 95 97 97 06/05/18 21:31 06/05/18 21:35 06/05/18 21:46 Temperature Pulse Rate 83 82 76 Respiratory Rate 14 16 14 Blood Pressure 103/51 L 97/50 L 99/53 L Pulse Oximetry 96 97 96 06/05/18 21:50 06/05/18 21:51 06/05/18 21:55 Temperature Pulse Rate 75 73 73 Respiratory Rate 15 14 14 Blood Pressure 92/54 L 92/55 L Pulse Oximetry 97 96 97 06/05/18 22:00 06/05/18 22:10 06/05/18 22:25 Temperature Pulse Rate 67 71 74 Respiratory Rate 16 13 16 Blood Pressure 95/50 L 99/51 L Pulse Oximetry 98 98 97 06/05/18 22:42 06/05/18 22:45 06/05/18 22:55 Temperature Pulse Rate 68 67 Respiratory Rate 14 15 Blood Pressure 104/56 L 102/57 L Pulse Oximetry 100 99 99 06/05/18 23:00 06/05/18 23:08 06/05/18 23:10 Temperature Pulse Rate 75 60 63 Respiratory Rate 16 12 13 Blood Pressure 95/52 L 101/51 L Pulse Oximetry 99 98 98 06/05/18 23:25 06/05/18 23:40 06/05/18 23:52 Temperature Pulse Rate 64 73 68 Respiratory Rate 15 14 16 Blood Pressure 106/54 L 112/59 L 90/49 L Pulse Oximetry 98 98 98 06/05/18 23:55 06/06/18 00:00 06/06/18 00:04 Temperature Pulse Rate 62 65 66 Respiratory Rate 15 16 Blood Pressure 92/52 L Pulse Oximetry 98 98 06/06/18 00:10 06/06/18 00:25 06/06/18 00:40 Temperature 98.4 F Pulse Rate 64 68 70 Respiratory Rate 16 16 18 Blood Pressure 95/51 L 97/49 L 104/53 L Pulse Oximetry 98 99 98 06/06/18 00:55 06/06/18 01:00 06/06/18 01:10 Temperature Pulse Rate 61 61 70 Respiratory Rate 14 12 18 Blood Pressure 92/46 L 117/58 L Pulse Oximetry 98 98 98 06/06/18 01:25 06/06/18 01:40 06/06/18 01:55 Temperature Pulse Rate 60 61 82 Respiratory Rate 12 13 21 Blood Pressure 104/52 L 99/50 L 105/51 L Pulse Oximetry 97 99 98 06/06/18 01:57 06/06/18 02:00 06/06/18 02:10 Temperature Pulse Rate 74 81 79 Respiratory Rate 20 18 Blood Pressure 101/58 L Pulse Oximetry 98 98 06/06/18 02:25 06/06/18 02:40 06/06/18 02:55 Temperature Pulse Rate 77 67 74 Respiratory Rate 22 18 17 Blood Pressure 103/55 L 106/55 L 99/57 L Pulse Oximetry 100 100 99 06/06/18 03:00 06/06/18 03:10 06/06/18 03:25 Temperature Pulse Rate 73 69 70 Respiratory Rate 19 17 14 Blood Pressure 109/58 L 105/52 L Pulse Oximetry 100 100 99 06/06/18 03:40 06/06/18 03:55 06/06/18 04:00 Temperature Pulse Rate 63 62 72 Respiratory Rate 15 12 16 Blood Pressure 92/49 L 104/52 L Pulse Oximetry 100 100 100 06/06/18 04:10 06/06/18 04:25 06/06/18 04:40 Temperature Pulse Rate 72 58 L 68 Respiratory Rate 19 12 16 Blood Pressure 121/59 L 102/52 L 111/55 L Pulse Oximetry 100 100 100 06/06/18 04:55 06/06/18 05:00 06/06/18 05:10 Temperature Pulse Rate 60 71 67 Respiratory Rate 14 18 16 Blood Pressure 98/60 L 120/58 L Pulse Oximetry 100 100 100 06/06/18 05:27 06/06/18 05:40 06/06/18 05:49 Temperature Pulse Rate 65 60 59 L Respiratory Rate 15 14 Blood Pressure 100/54 L 97/51 L Pulse Oximetry 100 100 06/06/18 05:55 06/06/18 06:00 Temperature Pulse Rate 82 64 Respiratory Rate 15 20 Blood Pressure 113/66 Pulse Oximetry 96 100 Intake & Output 06/05/18 06/06/18 06/06/18 18:59 06:59 18:59 Intake Total 1600 / 1600 3426 / 3426 274 / 274 Output Total 1540 / 1540 Balance 1600 / 1600 1886 / 1886 274 / 274 Weight 72.5 kg Intake: IV 1600 / 1600 1926 / 1926 274 / 274 D5W/Normal Saline Inj 1,000 ML 1000 / 1000 1754 / 1754 246 / 246 @ 100 mls/hr IV.CONT .Q10H [facility] Rx#:[id number] Protonix Inj 80 MG In NS Inj 72 / 72 28 / 28 100 ML @ 10 mls/hr IV.CONT Q10H [facility] Rx#:[id number] Zosyn 2.25 GM Premix 2.25 gm In 100 / 100 100 / 100 50 ml @ 100 mls/hr IV.SIG Q6H [facility] Rx#:[id number] NS Inj 500 ML @ Wide Open IV. 500 / 500 SIG BOLUS ONE Rx#:[id number] Anesthesia Amount 1500 / 1500 Output: Estimated Blood Loss 10 / 10 Urine Amount (Catheter) 1300 / 1300 18fr 1300 / 1300 Gastric Drainage 125 / 125 Right Nare 125 / 125 Wound Drainage 105 / 105 # 1 Abdomen 90 / 90 # 2 Abdomen 15 / 15 Other: # Voids 1 # Incontinent Voids 1 - Routine Abdominal Exam Present: soft (MARTINEZ x2 serosang, right lateral- pelvic, right medial sub hepatic serosang, soft) - Urinary Catheter Management 18fr Cath placed during this visit: yes Reason for continuing: Hourly intake/output Insertion date: 06/05/18 Insertion time: 18:20 Results - Labs 06/06/18 04:30 06/06/18 04:30 Laboratory Results - last 24 hr 06/05/18 06/05/18 06/05/18 07:27 07:27 12:36 WBC RBC Hgb Hct MCV MCH MCHC RDW Plt Count MPV Neut % (Auto) Lymph % (Auto) [place] % (Auto) Eos % (Auto) Baso % (Auto) Neut # (Auto) Lymph # (Auto) [place] # (Auto) Eos # (Auto) Baso # (Auto) WBC Differential Differential Comment PT INR APTT Puncture Site Patient Temperature O2 Saturation ABG pH ABG pCO2 ABG pO2 ABG HCO3 ABG O2 Content ABG Base Excess ABG Methemoglobin Hemoglobin Carboxyhemoglobin O2 Delivery Device Critical Value Sodium 139 Potassium 3.9 Chloride 106 Carbon Dioxide 25.5 Anion Gap 8 BUN 46 H Creatinine 2.31 H Estimated GFR 27 L POC Glucose 103 Random Glucose 95 Lactic Acid Calcium 8.8 Calcium Adj for Albumin Phosphorus Magnesium Total Bilirubin 0.7 AST 24 ALT 16 Alkaline Phosphatase 64 Ammonia Troponin I Total Protein 6.1 L D Albumin 2.7 L D Lipase Free T4 1.35 Free T3 1.01 L Nasal Screen MRSA (PCR) 06/05/18 06/05/18 06/05/18 13:37 15:30 16:21 WBC 12.9 H RBC 4.21 L Hgb 13.1 Hct 39.8 MCV 94.6 MCH 31.1 MCHC 32.9 RDW 13.9 Plt Count 210 MPV 8.3 Neut % (Auto) 78.3 H Lymph % (Auto) 13.6 [place] % (Auto) 7.2 Eos % (Auto) 0.5 Baso % (Auto) 0.4 Neut # (Auto) 10.1 H Lymph # (Auto) 1.8 [place] # (Auto) 0.9 Eos # (Auto) 0.1 Baso # (Auto) 0.1 WBC Differential . Differential Comment Auto diff final PT INR APTT Puncture Site Patient Temperature O2 Saturation ABG pH ABG pCO2 ABG pO2 ABG HCO3 ABG O2 Content ABG Base Excess ABG Methemoglobin Hemoglobin Carboxyhemoglobin O2 Delivery Device Critical Value Sodium Potassium Chloride Carbon Dioxide Anion Gap BUN Creatinine Estimated GFR POC Glucose Random Glucose Lactic Acid 1.6 Calcium Calcium Adj for Albumin Phosphorus Magnesium Total Bilirubin AST ALT Alkaline Phosphatase Ammonia Troponin I Total Protein Albumin Lipase Free T4 Free T3 Nasal Screen MRSA (PCR) Not detected 06/05/18 06/05/18 06/05/18 16:21 18:50 22:19 WBC RBC Hgb Hct MCV MCH MCHC RDW Plt Count MPV Neut % (Auto) Lymph % (Auto) [place] % (Auto) Eos % (Auto) Baso % (Auto) Neut # (Auto) Lymph # (Auto) [place] # (Auto) Eos # (Auto) Baso # (Auto) WBC Differential Differential Comment PT INR APTT Puncture Site Art line Patient Temperature 98.6 O2 Saturation 97 ABG pH 7.30 L ABG pCO2 35 L ABG pO2 196 H ABG HCO3 17 L ABG O2 Content 18.0 ABG Base Excess -8.3 L ABG Methemoglobin 1.4 Hemoglobin 12.9 Carboxyhemoglobin 0.6 O2 Delivery Device Ventilator Critical Value No Sodium 141 Potassium 3.8 Chloride 109 H Carbon Dioxide 23.5 Anion Gap 9 BUN 40 H Creatinine 2.10 H Estimated GFR 30 L POC Glucose 120 H Random Glucose 81 Lactic Acid Calcium 8.1 L Calcium Adj for Albumin Phosphorus Magnesium 2.1 Total Bilirubin AST ALT Alkaline Phosphatase Ammonia Troponin I Total Protein Albumin Lipase Free T4 Free T3 Nasal Screen MRSA (PCR) 06/05/18 06/06/18 06/06/18 22:36 04:30 04:30 WBC 12.9 H RBC 3.90 L Hgb 11.8 L Hct 36.3 L MCV 93.1 MCH 30.3 MCHC 32.5 RDW 13.5 Plt Count 198 MPV 8.1 Neut % (Auto) 93.0 H Lymph % (Auto) 3.1 L [place] % (Auto) 3.8 Eos % (Auto) 0.0 Baso % (Auto) 0.1 Neut # (Auto) 12.0 H Lymph # (Auto) 0.4 L [place] # (Auto) 0.5 Eos # (Auto) 0.0 Baso # (Auto) 0.0 WBC Differential . Differential Comment Auto diff final PT INR APTT Puncture Site Patient Temperature O2 Saturation ABG pH ABG pCO2 ABG pO2 ABG HCO3 ABG O2 Content ABG Base Excess ABG Methemoglobin Hemoglobin Carboxyhemoglobin O2 Delivery Device Critical Value Sodium 141 Potassium 4.2 Chloride 113 H Carbon Dioxide 19.8 L Anion Gap 8 BUN 26 H Creatinine 1.62 H Estimated GFR 41 L POC Glucose Random Glucose 145 H Lactic Acid 0.7 Calcium 7.3 L* D Calcium Adj for Albumin 8.6 Phosphorus 2.0 L Magnesium 2.0 Total Bilirubin AST ALT Alkaline Phosphatase Ammonia Troponin I Less than 0.02 L Total Protein Albumin 2.4 L Lipase 161 Free T4 Free T3 Nasal Screen MRSA (PCR) 06/06/18 06/06/18 06/06/18 04:30 04:30 04:30 WBC RBC Hgb Hct MCV MCH MCHC RDW Plt Count MPV Neut % (Auto) Lymph % (Auto) [place] % (Auto) Eos % (Auto) Baso % (Auto) Neut # (Auto) Lymph # (Auto) [place] # (Auto) Eos # (Auto) Baso # (Auto) WBC Differential Differential Comment PT 12.0 H INR 1.2 APTT 33.3 H D Puncture Site Patient Temperature O2 Saturation ABG pH ABG pCO2 ABG pO2 ABG HCO3 ABG O2 Content ABG Base Excess ABG Methemoglobin Hemoglobin Carboxyhemoglobin O2 Delivery Device Critical Value Sodium Potassium Chloride Carbon Dioxide Anion Gap BUN Creatinine Estimated GFR POC Glucose Random Glucose Lactic Acid 0.8 Calcium Calcium Adj for Albumin Phosphorus Magnesium Total Bilirubin AST ALT Alkaline Phosphatase Ammonia 19 Troponin I Total Protein Albumin Lipase Free T4 Free T3 Nasal Screen MRSA (PCR) - Imaging Imaging: ITS Impressions Head CT 06/04/18 18:11 CONCLUSION: 1. No acute intracranial abnormality. . . Abdomen/Pelvis CT 06/04/18 18:21 CONCLUSION: 1. Very small volume pneumoperitoneum as detailed above. The etiology is unclear. I see no inflammatory change involving the bowel structures or stomach to suggest a source. 2. Cholelithiasis without biliary dilatation. 3. Trace amount of fluid adjacent to the anterior margin of the liver. 4. Bilateral inguinal hernias containing fat. Chest X-Ray 06/04/18 18:21 CONCLUSION: No acute cardiopulmonary disease. Assessment and Plan - Plan POD 1 Dx lap, lap garham patch with gastric ulcer repair PLAN Npo ok for ice chips ng- needs replacement by IR today martinez x2 sxn iv abx/diflucan iv PPI ambulate icu mgnt close monitoring
[2018-06-06] MEDS: Morphine Inj 4 MG/ML Vial IV.PUSH PRN ×2 (14:04→20:30)
--- NOTE | 2018-06-06 14:25 | IR ---
EXAM DATE: 06/06/2018 12:30 PM EST AGE/SEX: 88 years / Male INDICATIONS: Patient presents with abdominal pain in need of a Nasogastric tube placement. CLINICAL DATA: This is the patient's initial encounter. Patient reports that signs and symptoms have been present for 1 day and indicates a pain score of 10/10. MEDICAL/SURGICAL HISTORY: Hypertension. Hypercholesterolemia. Hypothyroidism. Dementia, CAD, CKD, High Triglycerides. CABG. COMPARISON: No prior exams available for comparison. FLUORO TIME (min): 2:23 IMAGE SERIES: 1 RADIATION DOSE: 14 mGY CAK DEVICE(S): 16 Setswana 48'' Bard Nasogastric Sump Tube . . PROCEDURE: 1. Fluoroscopically guided enteric feeding tube placement. The risks, benefits and alternatives to the procedure were explained and verbal and written consent w as obtained. With fluoroscopic guidance a nasogastric tube was advanced into the stomach. CONCLUSION: Uncomplicated nasogastric tube placement Electronically signed by: Kwan Garcia MD Board Certified Radiologist 06/06/2018 2:24 PM EST
[2018-06-07] MEDS: Piperacil/Tazo 2.25 GM Premix 2.25 GM/50 ML PIGGYBACK IV.SIG SCH ×4 (02:33→20:40)
[2018-06-07] MEDS: Pantoprazole Inj 80 MG in Sodium Chlor 0.9% Inj 100 ML IV.CONT SCH ×2 (05:49→17:04)
[2018-06-07 06:24] LABS: Baso % (Auto) 0.3 % (0.0-2.0); Eos % (Auto) 0.3 % (0.0-4.0); Hematocrit 40.7 % (39.0-51.0); Hemoglobin 13.2 gm/dL (13.0-17.0); Lymph # (Auto) 1.3 th/mm3 (1.0-4.8); Mean Corpuscular HGB Conc 32.5 % (32.0-36.0); Mean Corpuscular Hemoglobin 30.1 pg (27.0-34.0); Mean Corpuscular Volume 92.7 fL (80.0-100.0); Mean Platelet Volume 8.1 fL (7.0-11.0); Mono # (Auto) 0.7 th/mm3 (0.0-0.9); Mono % (Auto) 6.2 % (0.0-8.0); Neut # (Auto) 9.4 th/mm3 (1.8-7.7); Neut % (Auto) 82.2 % (16.0-70.0); Platelet Count 210 th/mm3 (150-450); Red Blood Count 4.39 mil/mm3 (4.50-5.90); Red Cell Distribution Width 13.6 % (11.6-17.2); White Blood Count 11.4 th/mm3 (4.0-11.0)
[2018-06-07] MEDS: Dextrose 5%/NaCl 0.9% Inj 1,000 ML IV.CONT SCH ×2 (06:42→10:40)
[2018-06-07 07:11] LABS: Alanine Aminotransferase 21 U/L (12-78); Albumin 2.7 g/dL (3.4-5.0); Alkaline Phosphatase 65 U/L (45-117); Anion Gap 8 meq/L (5-15); Blood Urea Nitrogen 14 mg/dL (7-18); Calcium 8.5 mg/dL (8.5-10.1); Carbon Dioxide 22.8 meq/L (21.0-32.0); Chloride 115 meq/L (98-107); Glomerular Filtration Rate 39 mL/min (>89); Glucose,Random 91 mg/dL (74-106); Phosphorus 1.5 mg/dL (2.5-4.9); Sodium 146 meq/L (136-145); Total Protein 6.7 g/dL (6.4-8.2)
[2018-06-07 07:12] LABS: Aspartate Aminotransferase 38 U/L (15-37); Magnesium 2.1 mg/dL (1.5-2.5); Potassium 3.9 meq/L (3.5-5.1)
[2018-06-07] MEDS: Levothyroxine 100 MCG Tablet PO SCH (09:20)
[2018-06-07] MEDS: Sodium Chloride 0.9% 2 ML Flush BID IV.FLUSH SCH ×2 (09:20→20:40)
--- NOTE | 2018-06-07 15:02 | P.PNGS ---
Subjective Patient reports: no new complaints (no acute issues, ng remains out, pt occaional aggitation) Physical Exam Vital signs: Vital Signs 06/06/18 16:00 06/06/18 17:42 06/06/18 20:00 Temperature 97.0 F L 97.5 F L Pulse Rate 83 18 L 82 Respiratory Rate 21 18 Blood Pressure 113/54 L 127/58 L 120/58 L Pulse Oximetry 98 91 L 93 L 06/06/18 20:21 06/07/18 01:04 06/07/18 08:00 Temperature 97.4 F L 97.3 F L Pulse Rate 69 84 Respiratory Rate 18 16 Blood Pressure 114/61 162/72 H Pulse Oximetry 93 L 94 L 93 L 06/07/18 08:43 06/07/18 12:00 Temperature 97.2 F L Pulse Rate 93 H Respiratory Rate 16 Blood Pressure 151/75 H Pulse Oximetry 96 98 Intake & Output 06/06/18 06/07/18 06/07/18 18:59 06:59 18:59 Intake Total 1324 / 1324 615 / 615 1050 / 1050 Output Total 1300 / 1300 3200 / 3200 1000 / 1000 Balance -2585 / -2585 50 / 50 Weight 70.2 kg Intake: IV 1324 / 1324 615 / 615 1050 / 1050 D5W/Normal Saline Inj 1,000 ML 958 / 958 288 / 288 1000 / 1000 @ 100 mls/hr IV.CONT .Q10H [facility] Rx#:[id number] Protonix Inj 80 MG In NS Inj 101 / 101 127 / 127 100 ML @ 10 mls/hr IV.CONT Q10H [facility] Rx#:[id number] Diflucan 400 mg Premix Bag 200 100 / 100 ML @ 100 mls/hr IV.SIG Q24H [facility] Rx#:[id number] Zosyn 2.25 GM Premix 2.25 gm In 100 / 100 100 / 100 50 / 50 50 ml @ 100 mls/hr IV.SIG Q6H [facility] Rx#:[id number] Glycophos Inj 15 MMOL In NS Inj 165 / 165 150 ML @ 40 mls/hr IV.SIG ONCE ONE Rx#:[id number] Output: Urine 1000 / 1000 Urine Amount (Catheter) 1250 / 1250 3200 / 3200 18fr 1250 / 1250 3200 / 3200 Wound Drainage 50 / 50 # 1 Abdomen 30 / 30 # 2 Abdomen - Routine Abdominal Exam Present: soft (amrtinez serosang, incisional tenderness) - Urinary Catheter Management 18fr Cath placed during this visit: yes Reason for continuing: Hourly intake/output Insertion date: 06/05/18 Insertion time: 18:20 Results - Labs 06/07/18 05:39 06/07/18 05:39 Laboratory Results - last 24 hr 06/06/18 06/07/18 06/07/18 22:22 05:39 05:39 WBC 11.4 H RBC 4.39 L Hgb 13.2 Hct 40.7 MCV 92.7 MCH 30.1 MCHC 32.5 RDW 13.6 Plt Count 210 MPV 8.1 Neut % (Auto) 82.2 H Lymph % (Auto) 11.0 [place] % (Auto) 6.2 Eos % (Auto) 0.3 Baso % (Auto) 0.3 Neut # (Auto) 9.4 H Lymph # (Auto) 1.3 [place] # (Auto) 0.7 Eos # (Auto) 0.0 Baso # (Auto) 0.0 WBC Differential . Differential Comment Auto diff final Sodium 146 H Potassium 3.9 Chloride 115 H Carbon Dioxide 22.8 Anion Gap 8 BUN 14 Creatinine 1.69 H Estimated GFR 39 L Random Glucose 91 Lactic Acid 1.4 Calcium 8.5 D Phosphorus 1.5 L Magnesium 2.1 Total Bilirubin 0.6 AST 38 H ALT 21 Alkaline Phosphatase 65 Total Protein 6.7 D Albumin 2.7 L - Imaging Imaging: ITS Impressions Head CT 06/04/18 18:11 CONCLUSION: 1. No acute intracranial abnormality. . . Abdomen/Pelvis CT 06/04/18 18:21 CONCLUSION: 1. Very small volume pneumoperitoneum as detailed above. The etiology is unclear. I see no inflammatory change involving the bowel structures or stomach to suggest a source. 2. Cholelithiasis without biliary dilatation. 3. Trace amount of fluid adjacent to the anterior margin of the liver. 4. Bilateral inguinal hernias containing fat. Chest X-Ray 06/04/18 18:21 CONCLUSION: No acute cardiopulmonary disease. Gastrostomy Tube Placement 06/06/18 00:00 CONCLUSION: Uncomplicated nasogastric tube placement Assessment and Plan - Plan POD 2 Dx lap, lap garham patch with gastric ulcer repair PLAN Npo ok for ice chips ng- ok to leak ng out for now martinez x2 sxn iv abx/diflucan iv PPI ambulate will check ugi tomorrow
[2018-06-07] MEDS ORDERED: LORazepam 0.5 MG Tablet PO PRN (15:06)
--- NOTE | 2018-06-07 15:32 | P.PNIM ---
Subjective Interval history: Patient laying down in bed. Restraints in place to b/l upper exts. at bedside. As per nurse the patient has been agitated this morning. Physical Exam Vital signs: Vital Signs 06/06/18 16:00 06/06/18 17:42 06/06/18 20:00 Temperature 97.0 F L 97.5 F L Pulse Rate 83 18 L 82 Respiratory Rate 21 18 Blood Pressure 113/54 L 127/58 L 120/58 L Pulse Oximetry 98 91 L 93 L 06/06/18 20:21 06/07/18 01:04 06/07/18 08:00 Temperature 97.4 F L 97.3 F L Pulse Rate 69 84 Respiratory Rate 18 16 Blood Pressure 114/61 162/72 H Pulse Oximetry 93 L 94 L 93 L 06/07/18 08:43 06/07/18 12:00 Temperature 97.2 F L Pulse Rate 93 H Respiratory Rate 16 Blood Pressure 151/75 H Pulse Oximetry 96 98 Intake & Output 06/06/18 06/07/18 06/07/18 18:59 06:59 18:59 Intake Total 1324 / 1324 615 / 615 1050 / 1050 Output Total 1300 / 1300 3200 / 3200 1000 / 1000 Balance 24 / -2585 / -2585 50 / 50 Weight 70.2 kg Intake: IV 1324 / 1324 615 / 615 1050 / 1050 D5W/Normal Saline Inj 1,000 ML 958 / 958 288 / 288 1000 / 1000 @ 100 mls/hr IV.CONT .Q10H [facility] Rx#:[id number] Protonix Inj 80 MG In NS Inj 101 / 101 127 / 127 100 ML @ 10 mls/hr IV.CONT Q10H [facility] Rx#:[id number] Diflucan 400 mg Premix Bag 200 100 / 100 ML @ 100 mls/hr IV.SIG Q24H [facility] Rx#:[id number] Zosyn 2.25 GM Premix 2.25 gm In 100 / 100 100 / 100 50 / 50 50 ml @ 100 mls/hr IV.SIG Q6H [facility] Rx#:[id number] Glycophos Inj 15 MMOL In NS Inj 165 / 165 150 ML @ 40 mls/hr IV.SIG ONCE ONE Rx#:[id number] Output: Urine 1000 / 1000 Urine Amount (Catheter) 1250 / 1250 3200 / 3200 18fr 1250 / 1250 3200 / 3200 Wound Drainage 50 / 50 # 1 Abdomen 30 / 30 # 2 Abdomen 20 / 20 Narrative: General patient is laying down in bed, calm at the moment. HEENT extraocular movements are intact Cardiovascular S1-S2 audible Respiratory minimal rhonchi b/l Abdomen soft, abd binder in place, drains in place. Extremities no edema 2+ distal pulses in bilateral upper and lower extremities, upper exts in restraints. Neuro patient demented at baseline, not following all of my commands. Urinary Catheter Management 18fr: Cath placed during this visit: yes Reason for continuing: Hourly intake/output Insertion date: 06/05/18 Insertion time: 18:20 Results Labs CBC & Chem 7: 06/07/18 05:39 06/07/18 05:39 Labs: Microbiology 06/05/18 22:46 Blood - Peripheral Aerobic Blood Culture - Preliminary No growth in 2 days 06/05/18 22:46 Blood - Peripheral Anaerobic Blood Culture - Preliminary No growth in 2 days 06/05/18 22:36 Blood - Peripheral Aerobic Blood Culture - Preliminary No growth in 2 days 06/05/18 22:36 Blood - Peripheral Anaerobic Blood Culture - Preliminary No growth in 2 days Assessment and Plan (1) Pneumoperitoneum: Code(s): K66.8 - Other specified disorders of peritoneum Status: Acute Plan This patient is an 88-year-old male who has a diagnosis of coronary artery disease status post CABG x3, hypertension, dyslipidemia, hypothyroidism, history of tobacco use, history of nephrolithiasis and bladder stones and cholelithiasis. The patient presented to [place] on 06/04/2018 and was under the care of the critical care service. He was complaining of abdominal pain and a CT abdomen pelvis was done which showed small pneumoperitoneum involving the falciform ligament to the anterior gastric wall. The patient was in the intensive care unit and was found to be hypotensive, he received 3 L of IV fluids. Initially lactic acid was elevated at 2.1 and the patient had a leukocytosis of 14,000. Patient subsequently went to the OR for emergent laparotomy. 1. Pneumoperitoneum status post laparoscopic procedure and diagnosis of perforated gastric ulcer status post Nikos patch and drain placement. Patient is postop day 2. General surgery is following the patient. Currently on Protonix drip. We will continue to follow-up with recommendations from the surgical team. Keep n.p.o. for now as per the surgical team. Continue IV antibiotics. Morphine as needed for pain. B/l upper exts in restraints as pt was agitated and attempting to remove abd drains. 2. Hypertension/dyslipidemia/coronary artery disease status post CABG x3 Patient is currently n.p.o. Will start p.o. antihypertensives and medications once the patient is able to tolerate a p.o. diet. 3. CKD stage IIIb Serum creatinine on admission was 2.3, currently around 1.6. We will continue to follow the patient's labs This may be the patient's baseline. On IV fluids. 4. Hypophosphatemia Replaced. Follow-up a.m. labs. 5. Dementia Patient is at baseline as per his at bedside. Continue to monitor. Occasionally agitated, ativan ordered by Surgery team. 6. Acute hypoxic resp failure On 4 L currently, oxygen sat is 98% Will titrate off of oxygen if possible. If still on oxygen we will repeat the cxr. SCDs for DVT prophylaxis. Will start pharmacotherapy for DVT prophylaxis when okay with surgery team. Progress Note: Quality VTE Deep Vein Thrombosis/Pulmonary Embolism Present on Admission: No
[2018-06-07] MEDS ORDERED: Potassium Phosphate Inj 15 MMOL in Sodium Chlor 0.9% Inj 150 ML IV.SIG ONE (17:00)
[2018-06-07] MEDS: Dextrose 5%/Lactated Ringer's 1,000 ML IV.CONT SCH (17:07)
[2018-06-08] MEDS: Dextrose 5%/Lactated Ringer's 1,000 ML IV.CONT SCH ×4 (02:21→17:12)
[2018-06-08] MEDS: Piperacil/Tazo 2.25 GM Premix 2.25 GM/50 ML PIGGYBACK IV.SIG SCH ×4 (02:21→20:20)
[2018-06-08] MEDS: Pantoprazole Inj 80 MG in Sodium Chlor 0.9% Inj 100 ML IV.CONT SCH ×2 (02:21→12:52)
[2018-06-08] MEDS: Levothyroxine 100 MCG Tablet PO SCH (05:34)
[2018-06-08 06:20] LABS: Calcium 7.7 mg/dL (8.5-10.1); Carbon Dioxide 24.3 meq/L (21.0-32.0); Magnesium 1.9 mg/dL (1.5-2.5); Potassium 3.8 meq/L (3.5-5.1)
[2018-06-08] MEDS: Sodium Chloride 0.9% 2 ML Flush BID IV.FLUSH SCH ×2 (08:10→20:21)
--- NOTE | 2018-06-08 14:17 | P.PNGS ---
Subjective Interval history: NOTE FOR SURGICAL ATTENDING, DR. KIP SOUHT at bedside Still confused requiring restraints Pulled out NG tube Physical Exam Vital signs: Vital Signs 06/07/18 16:00 06/07/18 20:00 06/07/18 23:04 Temperature 97 F L 97.7 F Pulse Rate 79 100 H Respiratory Rate 16 22 Blood Pressure 107/70 111/69 Pulse Oximetry 97 95 95 06/08/18 00:00 06/08/18 01:00 06/08/18 08:00 Temperature 98.1 F 97.4 F L Pulse Rate 79 69 Respiratory Rate 24 19 15 Blood Pressure 102/57 L 159/80 H Pulse Oximetry 94 L 98 06/08/18 09:26 06/08/18 12:00 06/08/18 13:00 Temperature 96 F L Pulse Rate 76 Respiratory Rate 15 17 Blood Pressure 103/56 L Pulse Oximetry 98 97 Intake & Output 06/07/18 06/08/18 06/08/18 18:59 06:59 18:59 Intake Total 1200 / 1200 1555 / 1555 150 / 150 Output Total 1800 / 1800 1850 / 1850 Balance -600 / -600 -295 / -295 150 / 150 Weight 66.9 kg Intake: IV 1200 / 1200 1555 / 1555 150 / 150 D5W/Normal Saline Inj 1,000 ML 1000 / 1000 @ 100 mls/hr IV.CONT .Q10H [facility] Rx#:[id number] Protonix Inj 80 MG In NS Inj 100 / 100 100 / 100 100 / 100 100 ML @ 10 mls/hr IV.CONT Q10H [facility] Rx#:[id number] Diflucan 400 mg Premix Bag 200 0 / 0 200 / 200 ML @ 100 mls/hr IV.SIG Q24H [facility] Rx#:[id number] Zosyn 2.25 GM Premix 2.25 gm In 100 / 100 100 / 100 50 / 50 50 ml @ 100 mls/hr IV.SIG Q6H [facility] Rx#:[id number] Potassium Phosphate Inj 15 MMOL 155 / 155 In NS Inj 150 ML @ 38.75 mls/ hr IV.SIG ONCE ONE Rx#:[id number] Output: Urine 1800 / 1800 Urine Amount (Catheter) 1800 / 1800 18fr 1800 / 1800 Wound Drainage 50 / 50 # 1 Abdomen 20 / 20 # 2 Abdomen 30 / 30 Narrative: Laying in bed does not say much Abdomen soft to JPs and with serosanguineous draining Laparoscopic scars healing - Urinary Catheter Management 18fr Cath placed during this visit: yes Reason for continuing: Hourly intake/output Insertion date: 06/05/18 Insertion time: 18:20 Results - Labs 06/07/18 05:39 06/08/18 04:30 Laboratory Results - last 24 hr 06/08/18 04:30 Sodium 143 Potassium 3.8 Chloride 109 H Carbon Dioxide 24.3 Anion Gap 10 BUN 9 Creatinine 1.55 H Estimated GFR 43 L Random Glucose 89 Calcium 7.7 L D Magnesium 1.9 - Imaging Imaging: ITS Impressions Head CT 06/04/18 18:11 CONCLUSION: 1. No acute intracranial abnormality. . . Abdomen/Pelvis CT 06/04/18 18:21 CONCLUSION: 1. Very small volume pneumoperitoneum as detailed above. The etiology is unclear. I see no inflammatory change involving the bowel structures or stomach to suggest a source. 2. Cholelithiasis without biliary dilatation. 3. Trace amount of fluid adjacent to the anterior margin of the liver. 4. Bilateral inguinal hernias containing fat. Chest X-Ray 06/04/18 18:21 CONCLUSION: No acute cardiopulmonary disease. Gastrostomy Tube Placement 06/06/18 00:00 CONCLUSION: Uncomplicated nasogastric tube placement Assessment and Plan - Plan 88-year-old gentleman who had a perforated gastric ulcer surgically repaired laparoscopically with confusion. At this time he has no clinical indication of leak from his repair he has minimal output from his DONNY is fairly clear He has pulled his NG tube out I will start p.o. Discussed with Dr. Currie Discussed with - Attending Attestation NOTE FOR SURGICAL ATTENDING, DR. KIP SOUTH I attest that I had a [id number] encounter with the patient on the same day, and personally performed and documented my assessment and findings in the medical record. The following services were provided during this hospital visit: Chart data review, vital sign assessments/reviewing monitor data Review of consultations notes if present. Medication orders/review and/or management Ordering and/or reviewing lab tests Ordering and/or interpreting/reviewing x-rays and/or diagnostic studies Care of the patient and discussion of the patient with the care team Documentation time To help prompt me to consider important information that might be impacting today's encounter and assessment, Information from prior notes written by myself or my colleagues may have been "brought forward/copy and pasted" into today's note.
--- NOTE | 2018-06-08 15:11 | P.PNIM ---
Subjective Interval history: Patient laying down in bed, demented. No responding to my questions. Family at bedside. Physical Exam Vital signs: Vital Signs 06/07/18 16:00 06/07/18 20:00 06/07/18 23:04 Temperature 97 F L 97.7 F Pulse Rate 79 100 H Respiratory Rate 16 22 Blood Pressure 107/70 111/69 Pulse Oximetry 97 95 95 06/08/18 00:00 06/08/18 01:00 06/08/18 08:00 Temperature 98.1 F 97.4 F L Pulse Rate 79 69 Respiratory Rate 24 19 15 Blood Pressure 102/57 L 159/80 H Pulse Oximetry 94 L 98 06/08/18 09:26 06/08/18 12:00 06/08/18 13:00 Temperature 96 F L Pulse Rate 76 Respiratory Rate 15 17 Blood Pressure 103/56 L Pulse Oximetry 98 97 Intake & Output 06/07/18 06/08/18 06/08/18 18:59 06:59 18:59 Intake Total 1200 / 1200 1555 / 1555 150 / 150 Output Total 1800 / 1800 1850 / 1850 Balance -600 / -600 -295 / -295 150 / 150 Weight 66.9 kg Intake: IV 1200 / 1200 1555 / 1555 150 / 150 D5W/Normal Saline Inj 1,000 ML 1000 / 1000 @ 100 mls/hr IV.CONT .Q10H [facility] Rx#:[id number] Protonix Inj 80 MG In NS Inj 100 / 100 100 / 100 100 / 100 100 ML @ 10 mls/hr IV.CONT Q10H [facility] Rx#:[id number] Diflucan 400 mg Premix Bag 200 0 / 0 200 / 200 ML @ 100 mls/hr IV.SIG Q24H [facility] Rx#:[id number] Zosyn 2.25 GM Premix 2.25 gm In 100 / 100 100 / 100 50 / 50 50 ml @ 100 mls/hr IV.SIG Q6H [facility] Rx#:[id number] Potassium Phosphate Inj 15 MMOL 155 / 155 In NS Inj 150 ML @ 38.75 mls/ hr IV.SIG ONCE ONE Rx#:[id number] Output: Urine 1800 / 1800 Urine Amount (Catheter) 1800 / 1800 18fr 1800 / 1800 Wound Drainage 50 / 50 # 1 Abdomen 20 / 20 # 2 Abdomen 30 / 30 Narrative: General patient is laying down in bed, calm at the moment. HEENT extraocular movements are intact Cardiovascular S1-S2 audible Respiratory minimal rhonchi b/l Abdomen soft, abd binder in place, drains in place. Extremities no edema 2+ distal pulses in bilateral upper and lower extremities, upper exts in restraints. Neuro patient demented at baseline, not following all of my commands. Urinary Catheter Management 18fr: Cath placed during this visit: yes Reason for continuing: Hourly intake/output Insertion date: 06/05/18 Insertion time: 18:20 Results Labs CBC & Chem 7: 06/07/18 05:39 06/08/18 04:30 Labs: Microbiology 06/05/18 22:46 Blood - Peripheral Aerobic Blood Culture - Preliminary No growth in 3 days 06/05/18 22:46 Blood - Peripheral Anaerobic Blood Culture - Preliminary No growth in 3 days 06/05/18 22:36 Blood - Peripheral Aerobic Blood Culture - Preliminary No growth in 3 days 06/05/18 22:36 Blood - Peripheral Anaerobic Blood Culture - Preliminary No growth in 3 days Assessment and Plan (1) Pneumoperitoneum: Code(s): K66.8 - Other specified disorders of peritoneum Status: Acute Plan This patient is an 88-year-old male who has a diagnosis of coronary artery disease status post CABG x3, hypertension, dyslipidemia, hypothyroidism, history of tobacco use, history of nephrolithiasis and bladder stones and cholelithiasis. The patient presented to [place] on 06/04/2018 and was under the care of the critical care service. He was complaining of abdominal pain and a CT abdomen pelvis was done which showed small pneumoperitoneum involving the falciform ligament to the anterior gastric wall. The patient was in the intensive care unit and was found to be hypotensive, he received 3 L of IV fluids. Initially lactic acid was elevated at 2.1 and the patient had a leukocytosis of 14,000. Patient subsequently went to the OR for emergent laparotomy. 1. Pneumoperitoneum status post laparoscopic procedure and diagnosis of perforated gastric ulcer status post Nikos patch and drain placement. Patient is postop day 3. General surgery is following the patient. Patient pulled his NGT out last night. Started on PO clear liquid diet by surgery today. Currently on Protonix drip. We will continue to follow-up with recommendations from the surgical team. Continue IV antibiotics. Morphine as needed for pain. B/l upper exts in restraints as pt was agitated and attempting to remove abd drains. 2. Hypertension/dyslipidemia/coronary artery disease status post CABG x3 Patient is currently n.p.o. Will start p.o. antihypertensives and medications once the patient is able to tolerate a p.o. diet. His BP currently in the low 100s. 3. CKD stage IIIb Serum creatinine on admission was 2.3, currently around 1.55. We will continue to follow the patient's labs This may be the patient's baseline. On IV fluids. on D5LR, if tolerates Po diet will adjust ivf or possibly d/c them tomorrow. 4. Dementia Patient is at baseline as per his at bedside. Continue to monitor. Occasionally agitated, ativan ordered by Surgery team. 5. Acute hypoxic resp failure On 3 L currently, oxygen sat is in the mid 90s. Improving. Will titrate off of oxygen if possible. SCDs for DVT prophylaxis. Will start pharmacotherapy for DVT prophylaxis when okay with surgery team. Progress Note: Quality VTE Deep Vein Thrombosis/Pulmonary Embolism Present on Admission: No
[2018-06-09] MEDS: Pantoprazole Inj 80 MG in Sodium Chlor 0.9% Inj 100 ML IV.CONT SCH ×5 (00:18→21:51)
[2018-06-09] MEDS: Dextrose 5%/Lactated Ringer's 1,000 ML IV.CONT SCH ×4 (03:37→19:14)
[2018-06-09] MEDS: Piperacil/Tazo 2.25 GM Premix 2.25 GM/50 ML PIGGYBACK IV.SIG SCH ×4 (03:37→20:20)
[2018-06-09] MEDS: Levothyroxine 100 MCG Tablet PO SCH (05:34)
[2018-06-09] MEDS: Sodium Chloride 0.9% 2 ML Flush BID IV.FLUSH SCH ×2 (09:21→20:20)
--- NOTE | 2018-06-09 09:29 | P.PNIM ---
Subjective Interval history: Patient laying down in bed sleeping on my evaluation this morning. says that the patient's restraints were removed this morning however put back on because he became agitated and tried to remove his abd drain. No other complaints. Physical Exam Vital signs: Vital Signs 06/08/18 09:26 06/08/18 12:00 06/08/18 13:00 Temperature 96 F L Pulse Rate 76 Respiratory Rate 15 17 Blood Pressure 103/56 L Pulse Oximetry 98 97 06/08/18 16:00 06/08/18 20:00 06/08/18 20:18 Temperature 97 F L 98.4 F Pulse Rate 102 H 103 H Respiratory Rate 16 20 Blood Pressure 173/96 H 154/75 H Pulse Oximetry 97 95 95 06/08/18 21:33 06/09/18 00:00 Temperature 97.9 F Pulse Rate 88 Respiratory Rate 18 Blood Pressure 166/84 H Pulse Oximetry 93 L 96 Intake & Output 06/08/18 06/09/18 06/09/18 18:59 06:59 18:59 Intake Total 1200 / 1200 2880 / 2880 120 / 120 Output Total 1400 / 1400 1180 / 1180 200 / 200 Balance -200 / -200 1700 / 1700 -80 / -80 Weight 65.6 kg Intake: IV 1200 / 1200 2400 / 2400 D5W/LR Inj 1,000 ML @ 84 mls/hr 1000 / 1000 2000 / 2000 IV.CONT .[id number] [facility] Rx#: [id number] Protonix Inj 80 MG In NS Inj 100 / 100 100 / 100 100 ML @ 10 mls/hr IV.CONT Q10H [facility] Rx#:[id number] Diflucan 400 mg Premix Bag 200 200 / 200 ML @ 100 mls/hr IV.SIG Q24H [facility] Rx#:[id number] Zosyn 2.25 GM Premix 2.25 gm In 100 / 100 100 / 100 50 ml @ 100 mls/hr IV.SIG Q6H [facility] Rx#:[id number] Oral 480 / 480 120 / 120 Output: Urine 1400 / 1400 200 / 200 Urine Amount (Catheter) 1150 / 1150 18fr 1150 / 1150 Wound Drainage 30 / 30 # 1 Abdomen 10 / 10 # 2 Abdomen 20 / 20 Narrative: General patient is laying down in bed, calm at the moment. at bedside who says he was agitated this morning. HEENT extraocular movements are intact Cardiovascular S1-S2 audible Respiratory minimal rhonchi b/l Abdomen soft, abd binder in place, drains in place. Extremities no edema 2+ distal pulses in bilateral upper and lower extremities, upper exts in restraints. Neuro patient demented at baseline, not following all of my commands. Urinary Catheter Management 18fr: Cath placed during this visit: yes Reason for continuing: Hourly intake/output Insertion date: 06/05/18 Insertion time: 18:20 Results Labs CBC & Chem 7: 06/07/18 05:39 06/08/18 04:30 Labs: Microbiology 06/05/18 22:46 Blood - Peripheral Aerobic Blood Culture - Preliminary No growth in 3 days 06/05/18 22:46 Blood - Peripheral Anaerobic Blood Culture - Preliminary No growth in 3 days 06/05/18 22:36 Blood - Peripheral Aerobic Blood Culture - Preliminary No growth in 3 days 06/05/18 22:36 Blood - Peripheral Anaerobic Blood Culture - Preliminary No growth in 3 days Assessment and Plan (1) Pneumoperitoneum: Code(s): K66.8 - Other specified disorders of peritoneum Status: Acute Plan This patient is an 88-year-old male who has a diagnosis of coronary artery disease status post CABG x3, hypertension, dyslipidemia, hypothyroidism, history of tobacco use, history of nephrolithiasis and bladder stones and cholelithiasis. The patient presented to [place] on 06/04/2018 and was under the care of the critical care service. He was complaining of abdominal pain and a CT abdomen pelvis was done which showed small pneumoperitoneum involving the falciform ligament to the anterior gastric wall. The patient was in the intensive care unit and was found to be hypotensive, he received 3 L of IV fluids. Initially lactic acid was elevated at 2.1 and the patient had a leukocytosis of 14,000. Patient subsequently went to the OR for emergent laparotomy. 1. Pneumoperitoneum status post laparoscopic procedure and diagnosis of perforated gastric ulcer status post Nikos patch and drain placement. Patient is postop day 4. General surgery is following the patient. On PO liquid diet. Started on PO clear liquid diet by surgery yesterday. Will follow up with tara burris. Currently on Protonix drip. We will continue to follow-up with recommendations from the surgical team. Possibly switch to IV bid or PO protonix. Continue IV antibiotics. Morphine as needed for pain. B/l upper exts in restraints as pt was agitated and attempting to remove abd drains. 2. Hypertension/dyslipidemia/coronary artery disease status post CABG x3 Started on PO norvasc BP is high, will monitor and adjust meds if needed. 3. CKD stage IIIb Serum creatinine on admission was 2.3, currently around 1.55. This may be the patient's baseline. On IV fluids. on D5LR, if tolerates Po diet will adjust ivf or possibly d/c them tomorrow. Am bmp ordered. 4. Dementia Patient is at baseline as per his at bedside. Continue to monitor. Occasionally agitated, ativan ordered by Surgery team. 5. Acute hypoxic resp failure On 2L currently, oxygen sat is in the mid 90s. Improved from yesterday Will titrate off of oxygen if possible. SCDs for DVT prophylaxis. Will start pharmacotherapy for DVT prophylaxis when okay with surgery team. Progress Note: Quality VTE Deep Vein Thrombosis/Pulmonary Embolism Present on Admission: No
--- NOTE | 2018-06-09 10:25 | P.PNGS ---
Subjective Patient reports: no new complaints (no vomiting) Physical Exam Vital signs: Vital Signs 06/08/18 12:00 06/08/18 13:00 06/08/18 16:00 Temperature 96 F L 97 F L Pulse Rate 76 102 H Respiratory Rate 15 17 16 Blood Pressure 103/56 L 173/96 H Pulse Oximetry 97 97 06/08/18 20:00 06/08/18 20:18 06/08/18 21:33 Temperature 98.4 F Pulse Rate 103 H Respiratory Rate 20 Blood Pressure 154/75 H Pulse Oximetry 95 95 93 L 06/09/18 00:00 Temperature 97.9 F Pulse Rate 88 Respiratory Rate 18 Blood Pressure 166/84 H Pulse Oximetry 96 Intake & Output 06/08/18 06/09/18 06/09/18 18:59 06:59 18:59 Intake Total 1200 / 1200 2880 / 2880 120 / 120 Output Total 1400 / 1400 1180 / 1180 200 / 200 Balance -200 / -200 1700 / 1700 -80 / -80 Weight 65.6 kg Intake: IV 1200 / 1200 2400 / 2400 D5W/LR Inj 1,000 ML @ 84 mls/hr 1000 / 1000 2000 / 2000 IV.CONT .[id number] MON[facility] Rx#: [id number] Protonix Inj 80 MG In NS Inj 100 / 100 100 / 100 100 ML @ 10 mls/hr IV.CONT Q10H MONICA Rx#:[id number] Diflucan 400 mg Premix Bag 200 200 / 200 ML @ 100 mls/hr IV.SIG Q24H MONICA Rx#:[id number] Zosyn 2.25 GM Premix 2.25 gm In 100 / 100 100 / 100 50 ml @ 100 mls/hr IV.SIG Q6H MONICA Rx#:[id number] Oral 480 / 480 120 / 120 Output: Urine 1400 / 1400 200 / 200 Urine Amount (Catheter) 1150 / 1150 18fr 1150 / 1150 Wound Drainage # 1 Abdomen # 2 Abdomen - Routine Abdominal Exam Present: soft (incisions c/d/i, martinez serous) - Urinary Catheter Management 18fr Cath placed during this visit: yes Reason for continuing: Hourly intake/output Insertion date: 06/05/18 Insertion time: 18:20 Results - Labs 06/07/18 05:39 06/08/18 04:30 - Imaging Imaging: ITS Impressions Head CT 06/04/18 18:11 CONCLUSION: 1. No acute intracranial abnormality. . . Abdomen/Pelvis CT 06/04/18 18:21 CONCLUSION: 1. Very small volume pneumoperitoneum as detailed above. The etiology is unclear. I see no inflammatory change involving the bowel structures or stomach to suggest a source. 2. Cholelithiasis without biliary dilatation. 3. Trace amount of fluid adjacent to the anterior margin of the liver. 4. Bilateral inguinal hernias containing fat. Chest X-Ray 06/04/18 18:21 CONCLUSION: No acute cardiopulmonary disease. Gastrostomy Tube Placement 06/06/18 00:00 CONCLUSION: Uncomplicated nasogastric tube placement Assessment and Plan - Plan s/p Dx lap, lap garham patch with gastric ulcer repair PLAN clears, advance to fulls martinez x2 sxn iv abx/diflucan iv PPI ambulate
[2018-06-09] MEDS: amLODIPine 5 MG Tablet PO SCH (11:07)
[2018-06-10] MEDS: Pantoprazole Inj 80 MG in Sodium Chlor 0.9% Inj 100 ML IV.CONT SCH ×3 (02:54→14:04)
[2018-06-10] MEDS: Piperacil/Tazo 2.25 GM Premix 2.25 GM/50 ML PIGGYBACK IV.SIG SCH ×4 (02:56→20:18)
[2018-06-10] MEDS: Levothyroxine 100 MCG Tablet PO SCH (05:29)
[2018-06-10] MEDS: Dextrose 5%/Lactated Ringer's 1,000 ML IV.CONT SCH ×3 (05:30→15:29)
[2018-06-10 07:18] LABS: Calcium 8.4 mg/dL (8.5-10.1); Carbon Dioxide 27.6 meq/L (21.0-32.0); Potassium 3.2 meq/L (3.5-5.1)
[2018-06-10 07:19] LABS: Magnesium 1.9 mg/dL (1.5-2.5)
[2018-06-10] MEDS: Sodium Chloride 0.9% 2 ML Flush BID IV.FLUSH SCH ×2 (08:54→20:18)
[2018-06-10] MEDS: amLODIPine 5 MG Tablet PO SCH (08:54)
--- NOTE | 2018-06-10 09:15 | P.PNGS ---
Subjective Patient reports: no new complaints, feels better (pt pulled one martinez out, no fevers), no bowel movement Physical Exam Vital signs: Vital Signs 06/09/18 12:00 06/09/18 14:00 06/09/18 20:00 Temperature 97.2 F L 97.7 F 98.3 F Pulse Rate 67 75 80 Respiratory Rate 21 19 22 Blood Pressure 136/65 141/65 H 146/72 H Pulse Oximetry 96 96 94 L 06/09/18 21:15 06/10/18 00:00 Temperature 98.1 F Pulse Rate 82 Respiratory Rate 20 Blood Pressure 156/70 H Pulse Oximetry 93 L 93 L Intake & Output 06/09/18 06/10/18 06/10/18 18:59 06:59 18:59 Intake Total 1650 / 1650 550 / 550 969.4 / 969.4 Output Total 700 / 700 1600 / 1600 Balance 950 / 950 -1050 / -1050 969.4 / 969.4 Weight 66.1 kg Intake: IV 1050 / 1050 550 / 550 969.4 / 969.4 D5W/LR Inj 1,000 ML @ 84 mls/hr 800 / 800 200 / 200 969.4 / 969.4 IV.CONT .[id number] MONICA Rx#: [id number] Protonix Inj 80 MG In NS Inj 150 / 150 50 / 50 100 ML @ 10 mls/hr IV.CONT Q10H MONICA Rx#:[id number] Diflucan 400 mg Premix Bag 200 200 / 200 ML @ 100 mls/hr IV.SIG Q24H MONICA Rx#:[id number] Zosyn 2.25 GM Premix 2.25 gm In 100 / 100 100 / 100 50 ml @ 100 mls/hr IV.SIG Q6H MONICA Rx#:[id number] Oral 600 / 600 Output: Urine 700 / 700 Urine Amount (Catheter) 1600 / 1600 18fr 1600 / 1600 Wound Drainage 0 / 0 # 1 Abdomen 0 / 0 # 2 Abdomen 0 / 0 - Routine Abdominal Exam Present: soft (martinez serous, non distended) - Urinary Catheter Management 18fr Cath placed during this visit: yes Reason for continuing: Hourly intake/output Insertion date: 06/05/18 Insertion time: 18:20 Results - Labs 06/07/18 05:39 06/10/18 05:50 Laboratory Results - last 24 hr 06/10/18 05:50 Sodium 143 Potassium 3.2 L Chloride 107 Carbon Dioxide 27.6 Anion Gap 8 BUN 9 Creatinine 1.61 H Estimated GFR 41 L Random Glucose 90 Calcium 8.4 L Magnesium 1.9 - Imaging Imaging: ITS Impressions Head CT 06/04/18 18:11 CONCLUSION: 1. No acute intracranial abnormality. . . Abdomen/Pelvis CT 06/04/18 18:21 CONCLUSION: 1. Very small volume pneumoperitoneum as detailed above. The etiology is unclear. I see no inflammatory change involving the bowel structures or stomach to suggest a source. 2. Cholelithiasis without biliary dilatation. 3. Trace amount of fluid adjacent to the anterior margin of the liver. 4. Bilateral inguinal hernias containing fat. Chest X-Ray 06/04/18 18:21 CONCLUSION: No acute cardiopulmonary disease. Gastrostomy Tube Placement 06/06/18 00:00 CONCLUSION: Uncomplicated nasogastric tube placement Assessment and Plan - Plan s/p Dx lap, lap garham patch with gastric ulcer repair- improving PLAN fulls, possible advance tomorrow if bowel fxn bowel regimen martinez x1 sxn iv abx/diflucan iv PPI ambulate
[2018-06-10] MEDS: Senna/Docusate Sodium 8.6/50 MG Tablet PO SCH (09:46)
[2018-06-10] MEDS ORDERED: Potassium Chloride 25 MEQ Effervescent Tablet PO ONE (14:58)
[2018-06-10] MEDS ORDERED: amLODIPine 5 MG Tablet PO ONE (15:03)
--- NOTE | 2018-06-10 15:05 | P.DCO ---
Physical Therapy Order: Evaluate and treat Home Health Nursing Order: Medical education, Signs/symptoms of disease process, Wound care and dressing changes and Nursing assessment with vital signs Case Management Consult Case Management Consult-Home Health: Yes I have seen patient Avril Eden on 06/10/18. My clinical findings support the need for the requested home health care services because: Deconditioned with increased weakness and Limited ability to care for self I certify that my clinical findings support that this patient is homebound because:
--- NOTE | 2018-06-10 15:05 | P.PNIM ---
Subjective Interval history: Patient was agitated and removed one of his drains from the abd. No other significant events. Physical Exam Vital signs: Vital Signs 06/09/18 20:00 06/09/18 21:15 06/10/18 00:00 Temperature 98.3 F 98.1 F Pulse Rate 80 82 Respiratory Rate 22 20 Blood Pressure 146/72 H 156/70 H Pulse Oximetry 94 L 93 L 93 L 06/10/18 09:20 06/10/18 12:47 Temperature 97.2 F L 98.0 F Pulse Rate 91 H 84 Respiratory Rate 18 18 Blood Pressure 161/79 H 141/66 H Pulse Oximetry 94 L 92 L Intake & Output 06/09/18 06/10/18 06/10/18 18:59 06:59 18:59 Intake Total 1650 / 1650 550 / 550 1160.4 / 1160.4 Output Total 700 / 700 1600 / 1600 Balance 950 / 950 -1050 / -1050 1160.4 / 1160.4 Weight 66.1 kg Intake: IV 1050 / 1050 550 / 550 1160.4 / 1160.4 D5W/LR Inj 1,000 ML @ 84 mls/hr 800 / 800 200 / 200 969.4 / 969.4 IV.CONT .[id number] MONICA Rx#: [id number] Protonix Inj 80 MG In NS Inj 150 / 150 50 / 50 91 / 91 100 ML @ 10 mls/hr IV.CONT Q10H MONICA Rx#:[id number] Diflucan 400 mg Premix Bag 200 200 / 200 ML @ 100 mls/hr IV.SIG Q24H MONICA Rx#:[id number] Zosyn 2.25 GM Premix 2.25 gm In 100 / 100 100 / 100 100 / 100 50 ml @ 100 mls/hr IV.SIG Q6H MONICA Rx#:[id number] Oral 600 / 600 Output: Urine 700 / 700 Urine Amount (Catheter) 1600 / 1600 18fr 1600 / 1600 Wound Drainage 0 / 0 # 1 Abdomen 0 / 0 # 2 Abdomen 0 / 0 Other: # Incontinent Bowel Movements 1 Narrative: General patient is laying down in bed, calm at the moment. HEENT extraocular movements are intact Cardiovascular S1-S2 audible Respiratory minimal rhonchi b/l at bases Abdomen soft, abd binder in place, one drain in place. Extremities no edema 2+ distal pulses in bilateral upper and lower extremities, upper exts in restraints. Neuro patient demented at baseline, not following all of my commands. Urinary Catheter Management 18fr: Cath placed during this visit: yes Reason for continuing: Hourly intake/output Insertion date: 06/05/18 Insertion time: 18:20 Results Labs CBC & Chem 7: 06/07/18 05:39 06/10/18 05:50 Labs: Microbiology 06/05/18 22:46 Blood - Peripheral Aerobic Blood Culture - Final No growth in 5 days 06/05/18 22:46 Blood - Peripheral Anaerobic Blood Culture - Final No growth in 5 days 06/05/18 22:36 Blood - Peripheral Aerobic Blood Culture - Final No growth in 5 days 06/05/18 22:36 Blood - Peripheral Anaerobic Blood Culture - Final No growth in 5 days Assessment and Plan Plan This patient is an 88-year-old male who has a diagnosis of coronary artery disease status post CABG x3, hypertension, dyslipidemia, hypothyroidism, history of tobacco use, history of nephrolithiasis and bladder stones and cholelithiasis. The patient presented to [facility] on 06/04/2018 and was under the care of the critical care service. He was complaining of abdominal pain and a CT abdomen pelvis was done which showed small pneumoperitoneum involving the falciform ligament to the anterior gastric wall. The patient was in the intensive care unit and was found to be hypotensive, he received 3 L of IV fluids. Initially lactic acid was elevated at 2.1 and the patient had a leukocytosis of 14,000. Patient subsequently went to the OR for emergent laparotomy. 1. Pneumoperitoneum status post laparoscopic procedure and diagnosis of perforated gastric ulcer status post Nikos patch and drain placement. Patient is postop day 5. General surgery is following the patient. On PO liquid diet. As per surgery note may advance diet tomorrow. One drain removed by the patient today. Other drain still in place. Will discuss case with surgery for their plan. Will follow up with tara burris. Currently on Protonix drip. We will continue to follow-up with recommendations from the surgical team. Protonix iv bid. Continue IV antibiotics. Morphine as needed for pain. B/l upper exts in restraints as pt was agitated and removed one of his drains. 2. Hypertension/dyslipidemia/coronary artery disease status post CABG x3 Increase dose of norvasc Monitor and adjust meds as needed. 3. CKD stage IIIb Serum creatinine on admission was 2.3, currently around 1.6. This may be the patient's baseline. On IV fluids. on D5LR, if tolerates Po diet will adjust ivf or possibly d/c them tomorrow. Am bmp ordered. 4. Dementia Patient is at baseline as per his at bedside. Continue to monitor. Occasionally agitated, ativan prn. 5. Acute hypoxic resp failure On 2L currently, oxygen sat is in the mid 90s. Improved from yesterday Will titrate off of oxygen if possible. SCDs for DVT prophylaxis. Will start pharmacotherapy for DVT prophylaxis when okay with surgery team. Progress Note: Quality VTE Deep Vein Thrombosis/Pulmonary Embolism Present on Admission: No
[2018-06-10] MEDS: Pantoprazole Inj 40 MG Vial IV.PUSH SCH (15:24)
[2018-06-11] MEDS: Dextrose 5%/Lactated Ringer's 1,000 ML IV.CONT SCH ×2 (02:16→08:32)
[2018-06-11] MEDS: Piperacil/Tazo 2.25 GM Premix 2.25 GM/50 ML PIGGYBACK IV.SIG SCH ×4 (03:34→22:00)
[2018-06-11] MEDS: Pantoprazole Inj 40 MG Vial IV.PUSH SCH ×2 (03:35→16:25)
[2018-06-11] MEDS: Levothyroxine 100 MCG Tablet PO SCH (05:38)
[2018-06-11 08:38] LABS: Calcium 8.1 mg/dL (8.5-10.1); Carbon Dioxide 28.5 meq/L (21.0-32.0); Magnesium 1.8 mg/dL (1.5-2.5); Potassium 3.3 meq/L (3.5-5.1)
[2018-06-11] MEDS: Sodium Chloride 0.9% 2 ML Flush BID IV.FLUSH SCH ×2 (08:38→22:49)
[2018-06-11] MEDS: Senna/Docusate Sodium 8.6/50 MG Tablet PO SCH (08:39)
[2018-06-11] MEDS: amLODIPine 5 MG Tablet PO SCH (08:39)
--- NOTE | 2018-06-11 11:38 | P.PNGS ---
Subjective Interval history: Resting in bed at bedside Ate all his breakfast Physical Exam Vital signs: Vital Signs 06/10/18 12:47 06/10/18 17:10 06/10/18 20:00 Temperature 98.0 F 98.3 F 98.0 F Pulse Rate 84 95 H 117 H Respiratory Rate 18 18 22 Blood Pressure 141/66 H 129/63 123/58 L Pulse Oximetry 92 L 91 L 93 L 06/11/18 00:00 06/11/18 08:00 06/11/18 08:34 Temperature 98.4 F 97.9 F Pulse Rate 104 H 88 Respiratory Rate 20 17 Blood Pressure 113/59 L 102/58 L Pulse Oximetry 93 L 94 L 93 L Intake & Output 06/10/18 06/11/18 06/11/18 18:59 06:59 18:59 Intake Total 1218.3 / 1218.3 1300 / 1300 1050 / 1050 Output Total 1825 / 1825 612 / 612 Balance -606.7 / -606.7 688 / 688 1050 / 1050 Weight 64.4 kg Intake: IV 1218.3 / 1218.3 1300 / 1300 1050 / 1050 D5W/LR Inj 1,000 ML @ 42 mls/hr 969.4 / 969.4 1000 / 1000 1000 / 1000 IV.CONT .[id number] MONICA Rx#: [id number] Protonix Inj 80 MG In NS Inj 148.9 / 148.9 100 ML @ 10 mls/hr IV.CONT Q10H MONICA Rx#:[id number] Diflucan 400 mg Premix Bag 200 200 / 200 ML @ 100 mls/hr IV.SIG Q24H MONICA Rx#:[id number] Zosyn 2.25 GM Premix 2.25 gm In 100 / 100 100 / 100 50 / 50 50 ml @ 100 mls/hr IV.SIG Q6H MONICA Rx#:[id number] Output: Urine 1825 / 1825 Urine Amount (Catheter) 600 / 600 18fr 600 / 600 Wound Drainage # 2 Abdomen Other: Date of Last Bowel Movement 06/11/18 # Incontinent Bowel Movements 4 Narrative: Eyes closed; non verbal Abd: soft; binder in place; DONNY in place ---serous non cloudy drainage; incision c/d/i - Urinary Catheter Management 18fr Cath placed during this visit: yes Reason for continuing: Hourly intake/output Insertion date: 06/05/18 Insertion time: 18:20 Results - Labs 06/07/18 05:39 06/11/18 07:22 Laboratory Results - last 24 hr 06/11/18 07:22 Sodium 142 Potassium 3.3 L Chloride 107 Carbon Dioxide 28.5 Anion Gap 7 BUN 8 Creatinine 1.69 H Estimated GFR 39 L Random Glucose 89 Calcium 8.1 L Magnesium 1.8 - Imaging Imaging: ITS Impressions Head CT 06/04/18 18:11 CONCLUSION: 1. No acute intracranial abnormality. . . Abdomen/Pelvis CT 06/04/18 18:21 CONCLUSION: 1. Very small volume pneumoperitoneum as detailed above. The etiology is unclear. I see no inflammatory change involving the bowel structures or stomach to suggest a source. 2. Cholelithiasis without biliary dilatation. 3. Trace amount of fluid adjacent to the anterior margin of the liver. 4. Bilateral inguinal hernias containing fat. Chest X-Ray 06/04/18 18:21 CONCLUSION: No acute cardiopulmonary disease. Gastrostomy Tube Placement 06/06/18 00:00 CONCLUSION: Uncomplicated nasogastric tube placement Assessment and Plan - Plan 88 year old male s/p Dx lap, lap garham patch with gastric ulcer repair- improving -Advance to soft diet -DC DONNY drain -Continue bowel regimen -PPI BID -Bowel regimen
--- NOTE | 2018-06-11 11:56 | P.PNIM ---
Subjective Interval history: Patient laying down in bed. Appears calm this morning. Physical Exam Vital signs: Vital Signs 06/10/18 12:47 06/10/18 17:10 06/10/18 20:00 Temperature 98.0 F 98.3 F 98.0 F Pulse Rate 84 95 H 117 H Respiratory Rate 18 18 22 Blood Pressure 141/66 H 129/63 123/58 L Pulse Oximetry 92 L 91 L 93 L 06/11/18 00:00 06/11/18 08:00 06/11/18 08:34 Temperature 98.4 F 97.9 F Pulse Rate 104 H 88 Respiratory Rate 20 17 Blood Pressure 113/59 L 102/58 L Pulse Oximetry 93 L 94 L 93 L Intake & Output 06/10/18 06/11/18 06/11/18 18:59 06:59 18:59 Intake Total 1218.3 / 1218.3 1300 / 1300 1050 / 1050 Output Total 1825 / 1825 612 / 612 Balance -606.7 / -606.7 688 / 688 1050 / 1050 Weight 64.4 kg Intake: IV 1218.3 / 1218.3 1300 / 1300 1050 / 1050 D5W/LR Inj 1,000 ML @ 42 mls/hr 969.4 / 969.4 1000 / 1000 1000 / 1000 IV.CONT .[id number] MONICA Rx#: [id number] Protonix Inj 80 MG In NS Inj 148.9 / 148.9 100 ML @ 10 mls/hr IV.CONT Q10H MONICA Rx#:[id number] Diflucan 400 mg Premix Bag 200 200 / 200 ML @ 100 mls/hr IV.SIG Q24H MONICA Rx#:[id number] Zosyn 2.25 GM Premix 2.25 gm In 100 / 100 100 / 100 50 / 50 50 ml @ 100 mls/hr IV.SIG Q6H MONICA Rx#:[id number] Output: Urine 1825 / 1825 Urine Amount (Catheter) 600 / 600 18fr 600 / 600 Wound Drainage # 2 Abdomen Other: Date of Last Bowel Movement 06/11/18 # Incontinent Bowel Movements 4 Narrative: General patient is laying down in bed, calm at the moment. HEENT extraocular movements are intact Cardiovascular S1-S2 audible Respiratory minimal rhonchi b/l at bases Abdomen soft, abd binder in place, one drain in place. Extremities no edema 2+ distal pulses in bilateral upper and lower extremities, upper exts in restraints. Neuro patient demented at baseline, not following all of my commands. Urinary Catheter Management 18fr: Cath placed during this visit: yes Reason for continuing: Hourly intake/output Insertion date: 06/05/18 Insertion time: 18:20 Results Labs CBC & Chem 7: 06/07/18 05:39 06/11/18 07:22 Labs: Microbiology 06/05/18 22:46 Blood - Peripheral Aerobic Blood Culture - Final No growth in 5 days 06/05/18 22:46 Blood - Peripheral Anaerobic Blood Culture - Final No growth in 5 days 06/05/18 22:36 Blood - Peripheral Aerobic Blood Culture - Final No growth in 5 days 06/05/18 22:36 Blood - Peripheral Anaerobic Blood Culture - Final No growth in 5 days Assessment and Plan Plan This patient is an 88-year-old male who has a diagnosis of coronary artery disease status post CABG x3, hypertension, dyslipidemia, hypothyroidism, history of tobacco use, history of nephrolithiasis and bladder stones and cholelithiasis. The patient presented to [facility] on 06/04/2018 and was under the care of the critical care service. He was complaining of abdominal pain and a CT abdomen pelvis was done which showed small pneumoperitoneum involving the falciform ligament to the anterior gastric wall. The patient was in the intensive care unit and was found to be hypotensive, he received 3 L of IV fluids. Initially lactic acid was elevated at 2.1 and the patient had a leukocytosis of 14,000. Patient subsequently went to the OR for emergent laparotomy. 1. Pneumoperitoneum status post laparoscopic procedure and diagnosis of perforated gastric ulcer status post Nikos patch and drain placement. Patient is postop day 5. General surgery is following the patient. On PO liquid diet. Diet advanced today. Will monitor to see if pt tolerates the diet. Abd drain in place. Discussed with surgery today, plan is to remove the drain today. Will discuss case with surgery for their plan. Will follow up with tara burris. Currently on Protonix drip. We will continue to follow-up with recommendations from the surgical team. Protonix iv bid. Continue IV antibiotics. Morphine as needed for pain. B/l upper exts in restraints as pt was agitated and removed one of his drains. Plan is to remove all restraints today after abd drain is removed. 2. Hypertension/dyslipidemia/coronary artery disease status post CABG x3 Increase dose of norvasc Monitor and adjust meds as needed. 3. CKD stage IIIb Serum creatinine on admission was 2.3, currently around 1.6. This may be the patient's baseline. On IV fluids. Tolerating diet, will d/c fluids Electrolytes replaced. 4. Dementia Patient is at baseline as per his at bedside. Continue to monitor. Occasionally agitated, ativan prn. 5. Acute hypoxic resp failure On 2L currently, oxygen sat is in the mid 90s. Will titrate off of oxygen if possible. Plan discussed with nurse SCDs for DVT prophylaxis. Will start pharmacotherapy for DVT prophylaxis when okay with surgery team. Progress Note: Quality VTE Deep Vein Thrombosis/Pulmonary Embolism Present on Admission: No
[2018-06-11] MEDS ORDERED: Potassium Chloride 25 MEQ Effervescent Tablet PO ONE (12:30)
[2018-06-11] MEDS: Enoxaparin Inj 30 MG/0.3 ML Syringe SQ SCH (12:41)
--- NOTE | 2018-06-11 16:11 | P.DCO ---
Physical Therapy Order: Evaluate and treat Home Health Nursing Order: Medical education, Wound care and dressing changes and Nursing assessment with vital signs Case Management Consult Case Management Consult-Home Health: Yes I have seen patient Avril Eden on 06/11/18. My clinical findings support the need for the requested home health care services because: Limited mobility due to disease progression, Deconditioned with increased weakness and Limited ability to care for self I certify that my clinical findings support that this patient is homebound because:
[2018-06-12] MEDS: Piperacil/Tazo 2.25 GM Premix 2.25 GM/50 ML PIGGYBACK IV.SIG SCH ×3 (03:30→16:18)
[2018-06-12] MEDS: Pantoprazole Inj 40 MG Vial IV.PUSH SCH ×2 (04:01→16:34)
[2018-06-12] MEDS: Levothyroxine 100 MCG Tablet PO SCH (05:38)
--- NOTE | 2018-06-12 08:26 | P.PNGS ---
Subjective Patient reports: no new complaints (pt seen sleep, no acute issues,) Physical Exam Vital signs: Vital Signs 06/11/18 08:34 06/11/18 12:00 06/11/18 16:00 Temperature 98.0 F 98.5 F Pulse Rate 86 85 Respiratory Rate 17 17 Blood Pressure 98/53 L 95/55 L Pulse Oximetry 93 L 97 94 L 06/11/18 20:00 06/11/18 20:30 06/11/18 22:00 Temperature 98 F Pulse Rate 92 H Respiratory Rate 20 20 Blood Pressure 127/59 L Pulse Oximetry 91 L 93 L 93 L 06/12/18 00:00 Temperature 99.4 F Pulse Rate 94 H Respiratory Rate 18 Blood Pressure 148/67 H Pulse Oximetry 90 L Intake & Output 06/11/18 06/12/18 06/12/18 18:59 06:59 18:59 Intake Total 2310 / 2310 540 / 540 Balance 2310 / 2310 540 / 540 Weight 65.1 kg Intake: IV 1310 / 1310 300 / 300 D5W/LR Inj 1,000 ML @ 42 mls/hr 1210 / 1210 IV.CONT .[id number] MONICA Rx#: [id number] Diflucan 400 mg Premix Bag 200 200 / 200 ML @ 100 mls/hr IV.SIG Q24H MONICA Rx#:[id number] Zosyn 2.25 GM Premix 2.25 gm In 100 / 100 100 / 100 50 ml @ 100 mls/hr IV.SIG Q6H MONICA Rx#:[id number] Oral 1000 / 1000 240 / 240 Other: # Voids 900 # Urine Diapers 1 Date of Last Bowel Movement 06/11/18 06/11/18 - Routine Abdominal Exam Present: soft (incisions well healing, c/d/i) - Urinary Catheter Management 18fr Cath placed during this visit: yes, but has since been removed by the nurse Reason for continuing: Not indwelling catheter Insertion date: 06/05/18 Insertion time: 18:20 Removal date: 06/11/18 Removal time: 14:30 Results - Labs 06/07/18 05:39 06/11/18 07:22 Laboratory Results - last 24 hr 06/11/18 07:22 Sodium 142 Potassium 3.3 L Chloride 107 Carbon Dioxide 28.5 Anion Gap 7 BUN 8 Creatinine 1.69 H Estimated GFR 39 L Random Glucose 89 Calcium 8.1 L Magnesium 1.8 - Imaging Imaging: ITS Impressions Head CT 06/04/18 18:11 CONCLUSION: 1. No acute intracranial abnormality. . . Abdomen/Pelvis CT 06/04/18 18:21 CONCLUSION: 1. Very small volume pneumoperitoneum as detailed above. The etiology is unclear. I see no inflammatory change involving the bowel structures or stomach to suggest a source. 2. Cholelithiasis without biliary dilatation. 3. Trace amount of fluid adjacent to the anterior margin of the liver. 4. Bilateral inguinal hernias containing fat. Chest X-Ray 06/04/18 18:21 CONCLUSION: No acute cardiopulmonary disease. Gastrostomy Tube Placement 06/06/18 00:00 CONCLUSION: Uncomplicated nasogastric tube placement Assessment and Plan - Plan s/p Dx lap, lap garham patch with gastric ulcer repair- improving PLAN reg diet, soft bowel regimen po abx, PPI ambulate ok to d/c from surgery stand point to rehab or home pending family decision f/u [address] Currie
[2018-06-12] MEDS: amLODIPine 5 MG Tablet PO SCH (09:23)
[2018-06-12] MEDS: Senna/Docusate Sodium 8.6/50 MG Tablet PO SCH (09:26)
[2018-06-12] MEDS: Sodium Chloride 0.9% 2 ML Flush BID IV.FLUSH SCH (09:26)
--- NOTE | 2018-06-12 12:54 | P.DS ---
DS: Providers Date of admission: 06/04/18 19:58 Primary care physician: Manjinder Baldwin MD Consults: 06/05/18 00:39 Consult to General Surgery Routine Consulting Provider: Christoph Currie Reason for Consultation: pneumoperitoneum Notified:: Service Spoke with:: Zena Date Notified:: 06/05/18 Time Notified:: 00:42 Ordering Provider: JAVIER 06/05/18 13:52 HUB Only Consult Order Routine Consulting Provider: Mala Medeiros 06/05/18 16:26 Consult to Plant Electrician Stat Consulting Provider: Juan Antonio Smith For STAT consult, spoke directly to:: Dr Smith Preferred Sawmill Moulder Operator:: Juan Antonio Smith Reason for Consultation: Pneumoperitoneum with hypotension Notified:: Service Spoke with:: KIKO Date Notified:: 06/05/18 Time Notified:: 16:29 Ordering Provider: CRHIS 06/06/18 16:15 Consult to Hospitalist Routine Consulting Provider: Miah Oconnor Reason for Consultation: [place] of care in a.m. 06/07. Status post exploratory laparotomy with gastric ulcer/Nikos patch. Seen by Dr. Currie. Notified:: Service Spoke with:: KIKO Date Notified:: 06/06/18 Time Notified:: 16:26 Ordering Provider: ROULA 06/10/18 15:55 HUB Only Consult Order Routine Consulting Provider: [facility], 06/12/18 10:39 HUB Only Consult Order Routine Consulting Provider: [facility],[place] 06/12/18 10:45 HUB Only Consult Order Routine Consulting Provider: Medhat Pederson,[place] DS: Summary This patient is an 88-year-old male who has a diagnosis of coronary artery disease status post CABG x3, hypertension, dyslipidemia, hypothyroidism, history of tobacco use, history of nephrolithiasis and bladder stones and cholelithiasis. The patient presented to [facility] on 06/04/2018 and was under the care of the critical care service. He was complaining of abdominal pain and a CT abdomen pelvis was done which showed small pneumoperitoneum involving the falciform ligament to the anterior gastric wall. The patient was in the intensive care unit and was found to be hypotensive, he received 3 L of IV fluids. Initially lactic acid was elevated at 2.1 and the patient had a leukocytosis of 14,000. Patient subsequently went to the OR for emergent laparotomy. 1. Pneumoperitoneum status post laparoscopic procedure and diagnosis of perforated gastric ulcer status post Nikos patch and drain placement. Patient is postop day 6. General surgery is following the patient. On PO diet, tolerating it well. Abd drain initially in place, pt removed one drain a few days ago. Yesterday the other drain removed by the surgical team. Patient has been cleared from surgery for discharge. Patient should follow up with the surgery team in one week outpt. Initially family wanted the patient to be discharged home with home health however they have now decided today they want to send him to a SNF. Case discussed with case management, they are working on placement at a SNF today. Likely will be discharged today. Protonix PO BID on discharge, then follow up with Surgery team. Will discharge on PO Cipro and Flagyl on discharge, complete 2wks total antibiotics. Restraints have been removed, patient appears calm. 2. Hypertension/dyslipidemia/coronary artery disease status post CABG x3 BP under control. Continue norvasc on discharge. Patient has CAD with hx of CABG. When ok with surgery team start patient on aspirin unless he has other contraindications. Continue BB on discharge. 3. CKD stage IIIb Serum creatinine on admission was 2.3, currently around 1.6. F/u outpt with pcp, pcp to refer patient to nephrology for outpt evaluation and monitoring. 4. Dementia Patient is at baseline as per his at bedside. Not agitated for now. 5. Acute hypoxic respiratory failure Patient being titrated off of oxygen. Currently on 1L of oxygen. CXR negative. Time Spent with Patient Total time spent providing and/or coordinating discharge services: Greater than 30 minutes Quality: VTE Deep Vein Thrombosis/Pulmonary Embolism Present on Admission: No Exam Narrative Exam Narrative: General patient is laying down in bed, calm at the moment. HEENT extraocular movements are intact Cardiovascular S1-S2 audible Respiratory minimal rhonchi b/l at bases Abdomen abd drain removed. bowel sounds positive. Extremities no edema 2+ distal pulses in bilateral upper and lower extremities, upper exts in restraints. Neuro patient demented at baseline, not following all of my commands. Results Impressions ITS Impressions Head CT 06/04/18 18:11 CONCLUSION: 1. No acute intracranial abnormality. . . Abdomen/Pelvis CT 06/04/18 18:21 CONCLUSION: 1. Very small volume pneumoperitoneum as detailed above. The etiology is unclear. I see no inflammatory change involving the bowel structures or stomach to suggest a source. 2. Cholelithiasis without biliary dilatation. 3. Trace amount of fluid adjacent to the anterior margin of the liver. 4. Bilateral inguinal hernias containing fat. Chest X-Ray 06/04/18 18:21 CONCLUSION: No acute cardiopulmonary disease. Gastrostomy Tube Placement 06/06/18 00:00 CONCLUSION: Uncomplicated nasogastric tube placement Discharge Plan Discharge Disposition Patient Disposition: 03 Discharge to SNF Discharge Condition Condition: Stable Discharge Order Discharge Orders: Discharge Order (Routine); Ordered 06/12/18 Ordered By: Merecdez Wadsworth Discharge Details Anticipated Discharge Date: 06/05/18 Discharge Comment: Diagnosis: Pneumoperitoneum Physicians Team ED Provider: Melinda Ni Primary Care Provider: Manjinder Baldwin Attending Provider: Mercedez Wadsworth Other Providers: Mala Medeiros ; Juan Antonio Smith ; Christoph Currie ; [facility], ; [facility],[place] ; [facility] Rxs /Orders / Referrals /Forms Prescriptions: No Action enalapril maleate 20 mg Tablet 20 mg PO DAILY RF: 0 amlodipine 5 mg Tablet 5 mg PO DAILY RF: 0 metoprolol succinate 25 mg Tablet Extended Release 24 Hr 25 mg PO DAILY RF: 0 levothyroxine 100 mcg Capsule 100 mcg PO DAILY RF: 0 docusate sodium [Colace] 100 mg capsule 100 mg PO DAILY Qty: 20 RF: 0 Referrals: [facility], [Agency] - See Instructions Manjinder Baldwin MD [Primary Care Provider] - 06/18/18 3:20 pm Christoph Currie MD [Physician] - See Instructions Discharge Instructions Additional Instructions: F/u with surgery and pcp in one week. Discharge Interventions Interventions: Discharge Planning - Case Management Last Done: 06/12/18 08:59 Status ED Status: Left Department
[2018-06-12] MEDS: Enoxaparin Inj 30 MG/0.3 ML Syringe SQ SCH (16:18)
[2018-06-12 17:32] VITALS: BP 104/51; PULSE 89; RESP 18; TEMP 99.4; O2SAT 93
== END 2018-06-12 21:20 | disposition home health service (06) | DRG 326 ==
LOC: PHED 16:32 → PHEDA 19:58 → N05 06-05 01:15 → HIMC 06-05 15:30 → N03 06-05 18:32 → N07 06-06 17:32
PROVIDERS: ADMIT Hospitalist; ATTEND Hospitalist
CPT/HCPCS: 43752; 51798; 70450; 71010; 71045; 74176; 76937; 80048; 80053; 81001; 82040; 82140; 82805; 82948; 82962; 83605; 83690; 83735; 84100; 84439; 84443; 84481; 84484; 85025; 85610; 85730; 87040; 87641; 93005; 94150; 97163; 99291; C1769; C1887; C9113; J0330; J1100; J1450; J1650; J2270; J2370; J2405; J2543; J2704; J2710; J3010; J7030; J7040; J7042; J7121